=== PATIENT | male | born 1935 | race Caucasian/White ===

== ENCOUNTER → 2017-04-07 | Outpatient (CLI) | payer OTHER ==
[~2017-04-07] MED LIST: ASPEC81 PO; INDA1TAB3 PO; LISI-461 PO; WARF5TAB7 PO
[2017-04-07 09:33] LABS: BASO % 0.3 %; BASO ABS # 0.02 K/uL (0-0.2); COMPLETE YES; EOS % 2.6 %; HEMATOCRIT 41.9 % (42-52); IG% 0.2 %; LYMPH % 26.6 %; LYMPH ABS # 1.53 K/uL (1.2-3.4); MEAN CORPUSCULAR HEMOGLOBIN 32.7 pg (25-34); MEAN CORPUSCULAR HGB CONC 36.8 g/dl (32-36); MEAN PLATELET VOLUME 9.7 fL (7.4-10.4); MONO % 14.9 %; NEUT % 55.4 %; PLATELET COUNT 189 K/uL (130-400); RED BLOOD COUNT 4.71 M/uL (4.7-6.1); WHITE BLOOD COUNT 5.76 K/uL (4.8-10.8)
[2017-04-07 09:55] LABS: ESTIMATED AVERAGE GLUCOSE 103 mg/dl; HA1C FLAG Normal (Normal)
[2017-04-07 09:57] LABS: BLOOD UREA NITROGEN 14 mg/dl (7-18); BUN/CREATININE RATIO 15.1 (10-20); CALCIUM 8.9 mg/dl (8.5-10.1); CARBON DIOXIDE 30 mmol/L (21-32); CHLORIDE 101 mmol/L (98-107); CREATININE 0.96 mg/dl (0.60-1.40); GLUCOSE 81 mg/dl (70-99); POTASSIUM 4.2 mmol/L (3.5-5.1); SODIUM 135 mmol/L (136-145)
[2017-04-07 10:10] LABS: CHOLESTEROL 165 mg/dl (0-200); CHOLESTEROL/HDL RATIO 2.3; HDL CHOLESTEROL 71 mg/dl; LDL CHOLESTEROL CALCULATED 83 mg/dl; TRIGLYCERIDES 54 mg/dl (0-150); VERY LOW DENSITY LIPOPROT CALC 11 mg/dl
--- NOTE | 2017-04-15 07:59 | CODING QUERY MEDICAL NECESSITY ---
CQSUPPORTING DIAGNOSIS NEEDED A supporting diagnosis is required for the test/procedure performed on this patient in order for us to be reimbursed by the patient's insurance. Please provide a supporting diagnosis for the following test/procedure listed below next to the test name along with your signature. *If there is no additional diagnosis for this patient that would support the following test/procedure please document that below next to the test/procedure. Test(s)/Procedure(s) that require a supporting diagnosis: DOS 04/07/17 GLYCATED HEMOGLOBIN TEST TEST ORDERED BY ZOLTAN GUILLEN Provider Signature: Date: Thank you Kimberlee Reinoso Health Information Management Once completed, please kindly fax back to [phone] For questions please call [phone]
== END | disposition home or self-care (01) ==
LOC: C.LAB1850 07:34
PROVIDERS: ATTEND Physician Assistant
DX: I48.91 Unspecified atrial fibrillation (principal); E74.39 Other disorders of intestinal carbohydrate absorption

== ENCOUNTER → 2017-08-09 | Outpatient (CLI) | payer OTHER | END | disposition home or self-care (01) | LOC: C.LABSPEC 12:58 | PROVIDERS: ATTEND Physician Assistant | DX: R10.13 Epigastric pain (principal) ==

== ENCOUNTER → 2018-01-05 | Outpatient (CLI) | payer OTHER ==
[2018-01-05 09:31] LABS: BASO % 0.6 %; BASO ABS # 0.03 K/uL (0-0.2); EOS % 2.5 %; EOS ABS # 0.13 K/uL (0-0.5); HEMATOCRIT 43.3 % (42-52); HEMOGLOBIN 15.6 g/dL (14.0-18.0); IG# 0.01 K/uL (0.00-0.02); LYMPH % 30.2 %; LYMPH ABS # 1.58 K/uL (1.2-3.4); MEAN CORPUSCULAR HEMOGLOBIN 31.7 pg (25-34); MEAN PLATELET VOLUME 9.4 fL (7.4-10.4); MONO % 9.2 %; MONO ABS # 0.48 K/uL (0.11-0.59); NEUT % 57.3 %; PLATELET COUNT 179 K/uL (130-400); RED CELL DISTRIBUTION WIDTH CV 14.1 % (11.5-14.5); RED CELL DISTRIBUTION WIDTH SD 45.3 fL (36.4-46.3); WHITE BLOOD COUNT 5.23 K/uL (4.8-10.8)
[2018-01-05 09:48] LABS: HEMOGLOBIN A1C 5.2 % (4.5-5.6)
[2018-01-05 10:10] LABS: BLOOD UREA NITROGEN 16 mg/dl (7-18); CARBON DIOXIDE 28 mmol/L (21-32); CHOLESTEROL 165 mg/dl (0-200); CREATININE 0.98 mg/dl (0.60-1.40); GLUCOSE 79 mg/dl (70-99); POTASSIUM 3.6 mmol/L (3.5-5.1); SODIUM 133 mmol/L (136-145)
[2018-01-05 10:21] LABS: LDL CHOLESTEROL CALCULATED 79 mg/dl
== END | disposition home or self-care (01) ==
LOC: C.LAB1850 07:25
PROVIDERS: ATTEND Internal Medicine
DX: I10 Essential (primary) hypertension (principal)

== ENCOUNTER 2024-10-30 15:07 | Inpatient (IN) ==
--- NOTE | 2024-10-30 16:16 | XRay Report ---
INDICATION: Cough. TECHNIQUE: Frontal radiograph of the chest. COMPARISON: 01/10/2023 and 01/02/2023. FINDINGS: Cardiomegaly. Mild pulmonary vascular congestion. Moderate volume left greater than right pleural effusions with underlying atelectasis/airspace disease, worsened from prior. No pneumothorax. No acute fracture. IMPRESSION: Mild pulmonary vascular congestion. Moderate volume left greater than right pleural effusions with underlying atelectasis/airspace disease, worsened from prior. Electronically signed by Brent Nathan 10-30-2024 4:16 PM
[2024-10-30 16:47] LABS: Basophils # (auto) 0.04 K/uL (0.00-0.20); Basophils % (auto) 0.8 %; Eosinophils # (auto) 0.05 K/uL (0.00-0.50); Hematocrit (blood only) 40.6 % (42.0-52.0); Hemoglobin 13.9 g/dl (14.0-18.0); Immature Granulocytes # (auto) 0.02 K/uL (0.01-0.20); Immature Granulocytes % (auto) 0.4 %; Lymphocytes # (auto) 0.47 K/uL (1.20-3.40); Lymphocytes % (auto) 9.7 %; Mean Corpuscular Hemoglobin 31.6 pg (25.0-34.0); Mean Corpuscular Hgb Conc 34.2 g/dL (32.0-36.0); Mean Corpuscular Volume 92.3 fL (80.0-100.0); Mean Platelet Volume 9.8 fL (9.4-12.4); Monocytes # (auto) 0.67 K/uL (0.11-0.59); Monocytes % (auto) 13.8 %; Neutrophils # (auto) 3.59 K/uL (1.40-6.50); Neutrophils % (auto) 74.3 %; Platelet Count 160 K/uL (130-400); RDW Coefficient of Variation 15.7 % (11.5-14.5); White Blood Count 4.84 K/ul (4.8-10.8)
[2024-10-30 17:06] LABS: BUN Creatinine Ratio 20.5 (10-20); Bilirubin,Total 1.9 mg/dl (0.2-1.0); Calcium 9.4 mg/dl (8.6-10.3); Creatinine Clr Calc Pharmacy 33.8 ml/min; Globulin 4.2 gm/dl (2.5-4.0); Potassium 4.5 mmol/L (3.5-5.1); Total Protein 8.2 gm/dl (6.0-8.3)
[2024-10-30 17:19] LABS: Influenza A virus by PCR Negative (Neg); Influenza B virus by PCR Negative (Neg); RSV by PCR Negative (Neg); SARS CoV2 RNA(COVID-19) Ceph NEGATIVE (Negative)
--- NOTE | 2024-10-30 17:23 | Emergency Department Note ---
Impression & Plan Acute CHF (congestive heart failure), Bilateral leg edema, Acute dyspnea, Pleural effusion on left, Acute kidney injury superimposed on chronic kidney disease, Elevated brain natriuretic peptide (BNP) level, Non-ST elevation LA (NSTEMI) ED Provider Note HISTORY OF PRESENT ILLNESS: Patient is an 89-year-old male presenting with shortness of breath and lower extremity edema. helps provide some supplemental history. States that for the last 3 weeks the patient has been having progressively worsening swelling of his bilateral lower extremities and significant shortness of breath. They have been doing all of the preop work for his right inguinal hernia repair which is scheduled for 10/31/2019 5 in the morning. Patient is on Coumadin for history of stroke. He states that he takes 60 mg of furosemide in the morning and then an additional 40 mg in the afternoon. He states he has been making good amounts of urine with this, but it swelling is gotten worse. He is not taken any extra doses other than what is prescribed. He denies any chest pain with the shortness of breath. Reports he has not been able to cycle on his stationary bike for the last 3 weeks secondary to being so short of breath and secondary to the swelling of his legs. Reports his leg swelling initially was just around his ankles, but has progressed up his leg and is now in his bilateral groin. Reports that his legs feel very heavy and it is hard to get around like he normally would. ROS: as above PHYSICAL EXAM: Constitutional: Patient appears in no acute distress. HENT: Head: Normocephalic and atraumatic. Eyes: EOMI, PERRL Mouth/Throat: Mucous membranes moist. Neck: Trachea midline. Neck supple. Cardiovascular: Irregular rhythm. No murmurs, rubs or gallops. Intact distal pulses. Pulmonary/Chest: No respiratory distress. Breath sounds clear and equal bilaterally. No wheezes or rales. Decreased breath sounds in left lung base. Abdominal: Abdomen soft, no tenderness, rebound or guarding. Palpable right inguinal hernia which is soft and nontender to palpation. Musculoskeletal: No tenderness or deformity noted. +3 pitting edema of bilateral lower extremities extending into groins. Skin: Warm and dry. No rash, erythema, pallor or cyanosis Psychiatric: Appropriate mood and affect for situation. Neurological: Alert and keenly responsive. CN II-XII grossly intact, moving all extremities equally and fully. MDM: - Vitals signs showed tachycardia - History obtained via patient. History as above. - Chronic conditions affecting care: HTN; Afib; CHF - Differential diagnoses include, but are not limited to: Congestive heart failure; acute coronary syndrome; COPD/asthma exacerbation; pulmonary edema; pulmonary embolism; pneumonia; pneumothorax; viral syndrome - Order placed for continuous cardiac monitoring. At this time, monitor showed rate of 102 bpm with irregular rhythm, per my interpretation. - External medical records reviewed. Echocardiogram dated 03/01/2020 was reviewed. Patient has an EF of 55 to 60%. - EKG interpreted by myself showed atrial fibrillation. Rate 80 bpm. QT 346. No acute ischemic changes. - Laboratory workup interpreted by myself showed normal WBC; stable electrolytes; SIDNEY on CKD (Cr 1.56); elevated total bilirubin (1.9) with normal AST/ALT; elevated BNP (626); elevated troponin (70.4) - CXR shows left pleural effusion, per my interpretation. - Patient given 60 mg IV lasix in ER. - Discussed patient's case with the general surgeon patient is to have surgery with tomorrow, Dr. Song. He plans to come evaluate the patient, but reports that the patient would likely not be suitable for surgery tomorrow given his presentation. - Given patient's significant fluid overload status in the setting of failed outpatient Lasix, will admit to hospitalist service for further diuresis and further evaluation including an echocardiogram. - Discussion was had with disease case manager about patient's case and need for admission - Hospitalist consulted for admission - Patient admitted to [facility] hospitalist service for further evaluation and management. ASSESSMENT AND PLAN: Diagnosis: acute CHF exacerbation; bilateral leg edema; left pleural effusion; acute dyspnea; SIDNEY on CKD; elevated BNP; NSTEMI Plan: admit Past Med/Surg History Problem List (Updated 10/31/24 @ 01:25 by April Alvarado MD) Non-ST elevation LA (NSTEMI) (Acute) Elevated brain natriuretic peptide (BNP) level (Acute) Acute kidney injury superimposed on chronic kidney disease (Acute) Pleural effusion on left (Acute) Acute dyspnea (Acute) Bilateral leg edema (Acute) Acute CHF (congestive heart failure) (Acute) Acute on chronic diastolic CHF (congestive heart failure) Right inguinal hernia Encounter for pre-operative examination Incarcerated right inguinal hernia Foreskin swelling Lymphopenia Bilateral lower extremity edema Pleural effusion, right Severe tricuspid regurgitation Anemia Chronic venous insufficiency of lower extremity Osteoarthritis of basilar joint of thumb Cervical radiculopathy (Chronic) Polyneuropathy (Chronic) Atrial fibrillation (Chronic) Hypertension (Chronic) Osteoarthritis (Chronic) Medical History Moderate mitral regurgitation Gait disturbance Cane Osteoarthritis Severe tricuspid regurgitation Polyneuropathy Hypertension Hx of pleural effusion 12/2023 Bilateral leg edema Chronic venous insufficiency of lower extremity Per records Hearing loss Right Hearing Aid Atrial fibrillation Anemia Incarcerated right inguinal hernia Pulmonary hypertension Sensorineural hearing loss (SNHL) of right ear with restricted hearing of left ear Sensorineural hearing loss (SNHL) Asymmetrical left sensorineural hearing loss R/t stroke per patient/ Cerebrovascular accident, embolic (2007) Left Hearing Loss - no other residuals as per patients /patient 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 Basal cell carcinoma Actinic keratosis Chronic gastroesophageal reflux disease Controlled Surgical History PONV (postoperative nausea and vomiting) Hx of colonoscopy History of arthroscopy of left knee H/O basal cell carcinoma excision S/P thoracentesis (2021) H/O carpal tunnel repair bilateral Family History Other No family history of adverse response to anesthesia No family history of bleeding disorder Denies family history of Ovarian cancer Prostate cancer Myocardial infarction Breast cancer Colorectal cancer Social History Smoking Status: Never smoker Second Hand Exposure: No; Do You Dip or Chew Tobacco: No; Hx Alcohol Use: No Hx Substance Use: No Preferred Language: Georgian Communication Ability: Effective Visual Impairment: No Limitations Hearing Ability: Normal Blending Operator Required: No Beliefs That Will Affect Care: None marital status: Current Living Situation: Spouse current occupational status: retired Other Information That Helps Us Care for You: No Feels Safe at Home: Yes Safety Concerns: Feels Safe At This Time caffeine: Yes Dental Care, Regularly: Yes Seatbelt Use: always Sunscreen Use: Yes Assistive Devices: Cane, Hearing Aid - Right and Walker Allergies Allergies Allergy/AdvReac Type Severity Reaction Status Date / Time suture glue Allergy Intermediate Rash Uncoded 10/30/24 17:57 Home Meds Home Medications Medication Instructions Recorded Confirmed cholecalciferol (vitamin D3) 25 25 mcg PO DAILY 01/11/24 10/30/24 mcg (1,000 unit) capsule eplerenone 25 mg tablet (Inspra) 25 mg PO BID 10/19/24 10/30/24 furosemide 40 mg tablet (Lasix) 40 mg PO UD 10/19/24 10/30/24 metoprolol succinate 25 mg 25 mg PO DAILY 10/19/24 10/30/24 tablet,extended release 24 hr Previous Rx's Medication Instructions Recorded warfarin 5 mg tablet See Rx Instructions PO UD #65 tabs 06/30/24 Results & Data (ED) Vital Signs Vital Signs - 24 hr 10/30/24 15:26 10/30/24 16:48 10/30/24 17:00 Temperature 36.5 C Temperature Source Temporal Artery Scan Pulse Rate 90 94 H 74 Pulse Rate from SpO2 Sensor 75 Respiratory Rate 18 24 Respiratory Effort / Characteristics Non-Labored Spontaneous Respiratory Depth Normal Blood Pressure 137/87 104/80 Blood Pressure Mean 103 88 Blood Pressure Position Sitting Pulse Oximetry 97 97 Oxygen Delivery Method Room Air Sepsis Recent Fever Within 48 Hours No Sepsis New/Unexplained Change in Mental Status No Sepsis Action Taken by Nursing No Action Required 10/30/24 17:30 10/30/24 18:00 10/30/24 18:00 Temperature Temperature Source Pulse Rate 104 H 108 H Pulse Rate from SpO2 Sensor 98 H Respiratory Rate 22 23 Respiratory Effort / Characteristics Respiratory Depth Blood Pressure 128/97 141/99 H Blood Pressure Mean 107 113 Blood Pressure Position Pulse Oximetry 98 96 97 Oxygen Delivery Method Room Air Sepsis Recent Fever Within 48 Hours Sepsis New/Unexplained Change in Mental Status Sepsis Action Taken by Nursing 10/30/24 18:00 Temperature Temperature Source Pulse Rate 95 H Pulse Rate from SpO2 Sensor Respiratory Rate Respiratory Effort / Characteristics Respiratory Depth Blood Pressure Blood Pressure Mean Blood Pressure Position Pulse Oximetry 97 Oxygen Delivery Method Room Air Sepsis Recent Fever Within 48 Hours Sepsis New/Unexplained Change in Mental Status Sepsis Action Taken by Nursing Laboratory Data 10/30/24 16:20 10/30/24 16:20 Lab Results 10/30/24 Range/Units 16:20 WBC 4.84 (4.8-10.8) K/ul RBC 4.40 L (4.70-6.10) M/uL Hgb 13.9 L (14.0-18.0) g/dl Hct 40.6 L (42.0-52.0) % MCV 92.3 (80.0-100.0) fL MCH 31.6 (25.0-34.0) pg MCHC 34.2 (32.0-36.0) g/dL RDW Std Deviation 53.0 H (36.4-46.3) fL RDW Coeff of Vasquez 15.7 H (11.5-14.5) % Plt Count 160 (130-400) K/uL MPV 9.8 (9.4-12.4) fL Immature Gran % (Auto) 0.4 % Neut % (Auto) 74.3 % Lymph % (Auto) 9.7 % [place] % (Auto) 13.8 % Eos % (Auto) 1.0 % Baso % (Auto) 0.8 % Neut # (Auto) 3.59 (1.40-6.50) K/uL Lymph # (Auto) 0.47 L (1.20-3.40) K/uL [place] # (Auto) 0.67 H (0.11-0.59) K/uL Eos # (Auto) 0.05 (0.00-0.50) K/uL Baso # (Auto) 0.04 (0.00-0.20) K/uL Immature Gran # (Auto) 0.02 (0.01-0.20) K/uL PT 17.5 H (9.0-12.0) Seconds INR 1.7 H (0.9-1.1) APTT 33 H (21-31) Seconds PTT Ratio 1.2 Sodium 137 (136-145) mmol/L Potassium 4.5 (3.5-5.1) mmol/L Chloride 99 (98-107) mmol/L Carbon Dioxide 31 (21-32) mmol/L Anion Gap 7 (3-11) BUN 32 H (6-23) mg/dl Creatinine 1.56 H (0.6-1.4) mg/dl Est Cr Clr Drug Dosing 33.8 ml/min eGFR 42.46 BUN/Creatinine Ratio 20.5 H (10-20) Glucose 87 (70-99(Fasting)) mg/dl Calcium 9.4 (8.6-10.3) mg/dl Total Bilirubin 1.9 H (0.2-1.0) mg/dl AST 32 (13-39) U/L ALT 19 (7-52) U/L Alkaline Phosphatase 124 H (34-104) U/L Troponin I High Sens 70.4 H* (0-20) pg/ml B-Natriuretic Peptide 626 H (0-100) pg/ml Total Protein 8.2 (6.0-8.3) gm/dl Albumin 4.0 (3.4-5.0) gm/dl Globulin 4.2 H (2.5-4.0) gm/dl Albumin/Globulin Ratio 1.0 (0.9-2) SARS-CoV-2 (PCR) NEGATIVE (Negative) Influenza Type A (PCR) Negative (Neg) Influenza Type B (PCR) Negative (Neg) RSV (RT-PCR) Negative (Neg) Administered Medications Miscellaneous (Eplerenone: Order Awaiting Action) 1 each N/A QS [facility] Stop: 11/30/24 00:00 Last Admin: 10/30/24 23:35 Dose: Not Given Documented By: SYD Warfarin Sodium (Warfarin Sod 5 Mg Tab) 5 mg PO [id number]@1600 [facility] Stop: 11/29/24 20:59 Last Admin: 10/30/24 23:35 Dose: 5 mg Documented By: SYD Discontinued Medications Furosemide (Furosemide 40 Mg/4 Ml Vial) 60 mg IV ONCE ONE Stop: 10/30/24 17:19 Last Admin: 10/30/24 17:30 Dose: 60 mg Documented By: YULIANA Furosemide (Furosemide Inj 20 Mg/2 Ml Vial) 20 mg IV ONE STA Stop: 10/30/24 20:25 Last Admin: 10/30/24 21:30 Dose: 20 mg Documented By: YULIANA Imaging Data Radiologist's Impression: Chest X-Ray 10/30/24 15:29 INDICATION: Cough. TECHNIQUE: Frontal radiograph of the chest. COMPARISON: 01/10/2023 and 01/02/2023. FINDINGS: Cardiomegaly. Mild pulmonary vascular congestion. Moderate volume left greater than right pleural effusions with underlying atelectasis/airspace disease, worsened from prior. No pneumothorax. No acute fracture. IMPRESSION: Mild pulmonary vascular congestion. Moderate volume left greater than right pleural effusions with underlying atelectasis/airspace disease, worsened from prior. Electronically signed by Brent Nathan 10-30-2024 4:16 PM Discharge Plan Visit Data Chief Complaint: Shortness of Breath/Dyspnea Stated Complaint: SOB, EDEMA IN LEGS, SURG TOMORROW ED Provider: April Alvarado Discharge Problem: Acute CHF (congestive heart failure), Bilateral leg edema, Acute dyspnea, Pleural effusion on left, Acute kidney injury superimposed on chronic kidney disease, Elevated brain natriuretic peptide (BNP) level, Non-ST elevation LA (NSTEMI) Patient Disposition: Admitted As Inpatient Discharge Instructions Interventions: ED Discharge Assessment Last Done: 10/30/24 20:14
[2024-10-30 17:24] LABS: Troponin I High Sensitivity 70.4 pg/ml (0-20)
--- NOTE | 2024-10-30 17:24 | History & Physical Report ---
Date of Service October 30, 2024 Assessment & Plan (1) Acute on chronic diastolic CHF (congestive heart failure): (2) Bilateral lower extremity edema: (3) Atrial fibrillation: (4) Right inguinal hernia: Plan Alex is a pleasant 89-year-old male with PMH of HTN, atrial fibrillation, severe tricuspid regurgitation, and polyneuropathy. He presented on 10/30 for SOB/dyspnea. This has been an ongoing issue since July 2024 with an acute worsening over the past couple days. Additionally, bilateral lower extremity swelling x 2-3 weeks. Patient denies SOB at rest, but endorses FLETCHER. His at bedside reports that she notices conversational dyspnea whenever he is up and moving around, and he is taking longer and longer to return to baseline when he rests. #Acute CHF BNP elevated at 626 on arrival (most recently 497 on 01/10/2024) Last echocardiogram on 03/01/2020 revealed LVEF at 55 to 60% and severe tricuspid regurgitation Daily weights Strict I&O monitoring Lasix 80 mg IV BID17 Continue eplerenone, and monitor K 1200 mL fluid restriction #Pleural effusions CXR noted moderate volume left > right pleural effusions with worsening from prior Lasix (as above) #Right inguinal hernia Originally scheduled for a right inguinal hernia repair with Dr. Song on 10/31 Based on current symptoms, will plan to cancel patient's upcoming surgery Patient will likely require several days (if not longer, based on his pleural effusions) to become optimized for surgery Restart warfarin, which was previously on hold #Atrial fibrillation Rate controlled Restart warfarin Trend PT/INR #Elevated troponin Troponin 70.4 on arrival, repeat pending Clinically, patient denies chest pain on admission Suspect demand ischemia in the setting of heart failure/A-fib Continue telemetry monitoring for now Disposition: Admit to [facility] telemetry DNR/DNI Heart healthy, low-sodium diet VTE PPx: Warfarin History of Present Illness Chief Complaint: FLETCHER, bilateral LE edema Primary Care Provider: Kellee Freeman MD Alex is a pleasant 89-year-old male with PMH of HTN, atrial fibrillation, severe tricuspid regurgitation, and polyneuropathy. He presented on 10/30 for SOB/dyspnea. This has been an ongoing issue since July 2024 with an acute worsening over the past couple days. Additionally, bilateral lower extremity swelling x 2-3 weeks. Patient denies SOB at rest, but endorses FLETCHER. His at bedside reports that she notices conversational dyspnea whenever he is up and moving around, and he is taking longer and longer to return to baseline when he rests. Patient reports that he sleeps elevated at night; unable to assess orthopnea. He does ride a stationary bike 3 times per week, which never used to bother him, but it is gotten worse lately. No recent change in diet. He reports he watches his salt intake. He has reported increased weight lately. He believes his dry weight is around 160 - 163lb, but reports a weight increase to 169lb over the past few days. Patient reports good compliance with taking his Lasix 1.5 tablets in the morning and 1.0 tablets in the afternoon. He took his regular morning medicine today. Normally he takes warfarin at night, but he stopped taking this as he has an upcoming right inguinal hernia operation scheduled for tomorrow on 10/31. Patient stopped taking warfarin on 10/26. He reports that he does not have pain at present with his hernia, but some days he will have moderate pain, and others he will not have any pain at all. He ambulates with a cane as needed. He denies smoking, tobacco use, recent alcohol use. He is not self on oxygen at baseline or CPAP at night. Patient reports he has been to his ([facility]) for 60 years. Patient's vitals are stable at time of admission. ED course: Lasix 60 mg IV ROS: Patient endorses worsening FLETCHER, weight gain, lower extremity edema, and occasional lightheadedness. Patient denies fever, chills, night-sweats, dizziness, chest pain, chest palpitations, SOB at rest, pleuritic CP, cough, abdominal pain, N/V/D, or changes in urinary/bowel habits. Allergies Allergy/AdvReac Type Severity Reaction Status Date / Time suture glue Allergy Intermediate Rash Uncoded 10/30/24 17:57 Home Medications Medication Instructions Recorded Confirmed Type cholecalciferol (vitamin D3) 25 25 mcg PO DAILY 01/11/24 10/30/24 History mcg (1,000 unit) capsule warfarin 5 mg tablet See Rx Instructions PO UD #65 tabs 06/30/24 10/30/24 Rx eplerenone 25 mg tablet (Inspra) 25 mg PO BID 10/19/24 10/30/24 History furosemide 40 mg tablet (Lasix) 40 mg PO UD 10/19/24 10/30/24 History metoprolol succinate 25 mg 25 mg PO DAILY 10/19/24 10/30/24 History tablet,extended release 24 hr Past Med/Surg History Problem List (Updated 10/31/24 @ 01:25 by April Alvarado MD) Non-ST elevation TX (NSTEMI) (Acute) Elevated brain natriuretic peptide (BNP) level (Acute) Acute kidney injury superimposed on chronic kidney disease (Acute) Pleural effusion on left (Acute) Acute dyspnea (Acute) Bilateral leg edema (Acute) Acute CHF (congestive heart failure) (Acute) Acute on chronic diastolic CHF (congestive heart failure) Right inguinal hernia Encounter for pre-operative examination Incarcerated right inguinal hernia Foreskin swelling Lymphopenia Bilateral lower extremity edema Pleural effusion, right Severe tricuspid regurgitation Anemia Chronic venous insufficiency of lower extremity Osteoarthritis of basilar joint of thumb Cervical radiculopathy (Chronic) Polyneuropathy (Chronic) Atrial fibrillation (Chronic) Hypertension (Chronic) Osteoarthritis (Chronic) Medical History Moderate mitral regurgitation Gait disturbance Cane Osteoarthritis Severe tricuspid regurgitation Polyneuropathy Hypertension Hx of pleural effusion 12/2023 Bilateral leg edema Chronic venous insufficiency of lower extremity Per records Hearing loss Right Hearing Aid Atrial fibrillation Anemia Incarcerated right inguinal hernia Pulmonary hypertension Sensorineural hearing loss (SNHL) of right ear with restricted hearing of left ear Sensorineural hearing loss (SNHL) Asymmetrical left sensorineural hearing loss R/t stroke per patient/ Cerebrovascular accident, embolic (2007) Left Hearing Loss - no other residuals as per patients /patient 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 Basal cell carcinoma Actinic keratosis Chronic gastroesophageal reflux disease Controlled Surgical History PONV (postoperative nausea and vomiting) Hx of colonoscopy History of arthroscopy of left knee H/O basal cell carcinoma excision S/P thoracentesis (2021) H/O carpal tunnel repair bilateral Family History Other No family history of adverse response to anesthesia No family history of bleeding disorder Denies family history of Ovarian cancer Prostate cancer Myocardial infarction Breast cancer Colorectal cancer Social History Smoking Status: Never smoker Second Hand Exposure: No; Do You Dip or Chew Tobacco: No; Hx Alcohol Use: No Hx Substance Use: No Preferred Language: Vietnamese Communication Ability: Effective Visual Impairment: No Limitations Hearing Ability: Normal Major Gifts Manager Required: No Beliefs That Will Affect Care: None marital status: Current Living Situation: Spouse current occupational status: retired Other Information That Helps Us Care for You: No Feels Safe at Home: Yes Safety Concerns: Feels Safe At This Time caffeine: Yes Dental Care, Regularly: Yes Seatbelt Use: always Sunscreen Use: Yes Assistive Devices: Cane, Hearing Aid - Right and Walker Review of Systems Review of Systems: See HPI above Physical Exam Physical Exam: General: no acute distress; pleasant affect; at bedside; non-toxic appearing; frail appearing; cooperative; SpO2 97% on RA HEENT: normocephalic, atraumatic; no scleral icterus; PERRLA; vision intact; hard of hearing Neck: supple; no lymphadenopathy; trachea midline Skin: warm, dry without signs of tenting; no cyanosis; no rashes, bruising, lesions, or erythema noted CV: chest wall NTP; irregularly irregular rhythm; S1/S2 normal; no murmurs/rubs/gallops; pulses intact and symmetric at radial, DP, and PT Lungs: no acute respiratory distress; symmetrical chest wall expansion; diminished breath sounds across all lung ritter w/o adventitious sounds; no wheezing ABD: Soft, NTP; BS present; no rebound/guarding; no distention; right inguinal hernia is soft, nontender to palpation MSK: no tics or fasciculations; +3 pitting edema noted in the LEs b/l extending up to the groin, nonerythematous Neuro: A&Ox3; normal mood and affect; fluent speech; no focal deficits; patient reports sensation is intact and symmetric in the lower extremities bilaterally Results & Data Results & Data Vital Signs (Past 12 Hours) Vital Signs Temp Pulse Resp BP Pulse Ox O2 Del Method 10/30/24 16:48 94 H 10/30/24 15:26 36.5 C 90 18 137/87 97 Room Air Laboratory Results Abnormal lab results 10/30/24 Range/Units 16:20 RBC 4.40 L (4.70-6.10) M/uL Hgb 13.9 L (14.0-18.0) g/dl Hct 40.6 L (42.0-52.0) % RDW Std Deviation 53.0 H (36.4-46.3) fL RDW Coeff of Vasquez 15.7 H (11.5-14.5) % Lymph # (Auto) 0.47 L (1.20-3.40) K/uL Schley # (Auto) 0.67 H (0.11-0.59) K/uL BUN 32 H (6-23) mg/dl Creatinine 1.56 H (0.6-1.4) mg/dl BUN/Creatinine Ratio 20.5 H (10-20) Total Bilirubin 1.9 H (0.2-1.0) mg/dl Alkaline Phosphatase 124 H (34-104) U/L Troponin I High Sens 70.4 H* (0-20) pg/ml B-Natriuretic Peptide 626 H (0-100) pg/ml Globulin 4.2 H (2.5-4.0) gm/dl Diagnostic Findings Chest X-Ray 10/30/24 15:29 INDICATION: Cough. TECHNIQUE: Frontal radiograph of the chest. COMPARISON: 01/10/2023 and 01/02/2023. FINDINGS: Cardiomegaly. Mild pulmonary vascular congestion. Moderate volume left greater than right pleural effusions with underlying atelectasis/airspace disease, worsened from prior. No pneumothorax. No acute fracture. IMPRESSION: Mild pulmonary vascular congestion. Moderate volume left greater than right pleural effusions with underlying atelectasis/airspace disease, worsened from prior. Electronically signed by Brent Nathan 10-30-2024 4:16 PM ECG Additional Comments: ECG revealed atrial fibrillation at 80 bpm; QTc 399 Code Status & VTE Plan Code Status DNR/DNI VTE Prophylaxis Plan VTE Prophylaxis will be ordered: Yes Supervising Physician Co-Signing Physician Notes I personally saw and examined the patient. I independently reviewed the labs, EKG, imaging, problem list, medication list, past medical history and family history. I verified all almendarez points and agree with Felix Gr PA-C with the following exceptions and/or additions: 89 year old male presents to the ER with weight gain and worsening shortness of breath O/E HS RRR, systolic murmur RUSB, bibasal absent breath sounds, no crackles or wheezing, Abdo SNT, 2+ bilateral pitting edema A/P Acute on chronic HFpEF - Lasix 80mg IV BID, continue metoprolol succinate, strict I&Os, daily weights, will cancel fluid restriction, since he has not yet established PG Care Time/CCT Total # of Minutes Spent Total Time Spent with Patient: Total time spent is greater than 50% in coordination of care (as documented) at patient's floor/unit and/or counseling patient: Coding [place] [address] INT INP/OBS CARE 3/75MIN Patient Type Established Medical Decision Making High Complexity Diagnoses Acute on chronic diastolic CHF (congestive heart failure) I50.33 Bilateral lower extremity edema R60.0 Paroxysmal atrial fibrillation I48.0 Atrial fibrillation type: paroxysmal Right inguinal hernia K40.90 (3) Atrial fibrillation Atrial fibrillation type: paroxysmal Qualified Code(s): I48.0 - Paroxysmal atrial fibrillation
[2024-10-30] MEDS: FUROSEMIDE 40 MG/4 ML VIAL IV ONE (17:30)
[2024-10-30 17:32] LABS: INR 1.7 (0.9-1.1); Partial Thromboplastin Ratio 1.2; Partial Thromboplastin Time 33 Seconds (21-31); Prothrombin Time 17.5 Seconds (9.0-12.0)
--- NOTE | 2024-10-30 17:52 | Surgery Consultation ---
Date of Consultation October 30, 2024 Assessment & Plan (1) Right inguinal hernia: His hernia is actually even more reduced now than when I saw him in the office He has no tenderness palpation or signs of incarceration I think it is likely best to postpone his surgery tomorrow until his CHF exacerbation has improved If he is optimized next few days and is still inpatient, can consider elective hernia repair as an inpatient Will touch base with the medical team tomorrow about this possibility as he has been holding his Coumadin Will follow History of Present Illness Reason for Consultation: Right Inguinal Hernia History of Present Illness This is a 89-year-old male who came to the ER today with progressive lower extremity edema and dyspnea. He was scheduled for an elective open right inguinal hernia repair with me tomorrow. He had been holding his Coumadin and was seen by the [facility] referred to his PCP who then referred him here for evaluation. He states that he has had progressive worsening dyspnea and swelling of the legs. He denies any groin pain at this time. He denies any nausea or vomiting. He denies any constipation or diarrhea. He has been eating without issue. He is being admitted for CHF exacerbation. Allergies Allergy/AdvReac Type Severity Reaction Status Date / Time suture glue Allergy Intermediate Rash Uncoded 10/19/24 15:02 Home Medications Medication Instructions Recorded Confirmed Type cholecalciferol (vitamin D3) 25 25 mcg PO DAILY 01/11/24 10/30/24 History mcg (1,000 unit) capsule warfarin 5 mg tablet See Rx Instructions PO UD #65 tabs 06/30/24 10/30/24 Rx eplerenone 25 mg tablet (Inspra) 25 mg PO BID 10/19/24 10/30/24 History furosemide 40 mg tablet (Lasix) 40 mg PO .COMPLEX 10/19/24 10/30/24 History metoprolol succinate 25 mg 25 mg PO BID 10/19/24 10/30/24 History tablet,extended release 24 hr Patient History Medical History Moderate mitral regurgitation Gait disturbance Cane Osteoarthritis Severe tricuspid regurgitation Polyneuropathy Hypertension Hx of pleural effusion 12/2023 Bilateral leg edema Chronic venous insufficiency of lower extremity Per records Hearing loss Right Hearing Aid Atrial fibrillation Anemia Incarcerated right inguinal hernia Pulmonary hypertension Sensorineural hearing loss (SNHL) of right ear with restricted hearing of left ear Sensorineural hearing loss (SNHL) Asymmetrical left sensorineural hearing loss R/t stroke per patient/ Cerebrovascular accident, embolic (2007) Left Hearing Loss - no other residuals as per patients /patient 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 Basal cell carcinoma Actinic keratosis Chronic gastroesophageal reflux disease Controlled Surgical History PONV (postoperative nausea and vomiting) Hx of colonoscopy History of arthroscopy of left knee H/O basal cell carcinoma excision S/P thoracentesis (2021) H/O carpal tunnel repair bilateral Family History Other No family history of adverse response to anesthesia No family history of bleeding disorder Denies family history of Ovarian cancer Prostate cancer Myocardial infarction Breast cancer Colorectal cancer Social History Smoking Status: Never smoker Second Hand Exposure: No; Do You Dip or Chew Tobacco: No; Hx Alcohol Use: No Hx Substance Use: No Preferred Language: Swedish Communication Ability: Effective Visual Impairment: No Limitations Hearing Ability: Normal Gift Packer Required: No Beliefs That Will Affect Care: None marital status: Current Living Situation: Spouse current occupational status: retired Feels Safe at Home: Yes caffeine: Yes Dental Care, Regularly: Yes Seatbelt Use: always Sunscreen Use: Yes Assistive Devices: Cane, Glasses, Hearing Aid - Right and Other Review of Systems Constitutional: no fever and no chills Eyes: no blind spots and no corrective lenses Ear, Nose, Mouth, Throat: no ear pain and no ear discharge Respiratory: + dyspnea; no cough Cardiovascular: + dyspnea on exertion; no chest pain Gastrointestinal: no abdominal pain, no nausea, no vomiting, no constipation and no diarrhea/loose stools Genitourinary: no dysuria or no urinary incontinence Musculoskeletal: no back pain and no neck pain Integumentary: no acne and no lesions Neurologic: no gait abnormality and no generalized weakness Psychiatric: no behavioral changes and no depression Hematologic / Lymphatic: no easy bleeding and no easy bruising Physical Exam Constitutional: WD/WN, vitals as above Eyes: PERRL, conjunctivae normal, anicteric sclerae ENMT: external ear and nose normal, oropharynx normal Respiratory: normal respiratory effort; no respiratory distress Cardiovascular: RRR, no murmur, no edema Gastrointestinal (Abdomen): Inspection/Auscultation: abdomen normal to inspection; abdomen not distended Percussion/Palpation: abdomen soft and + hernia (Reducible right inguinal); abdomen nontender and no guarding Musculoskeletal: no cyanosis or clubbing, extremities motor strength 5/5 Skin: no rashes, warm and dry Neurologic: PERRL, EOMI, accommodation nl, no face palsy, no dysarthria Psychiatric: A+Ox3, euthymic affect Results & Data Vital Signs (Past 12 Hours) Vital Signs Temp Pulse Resp BP Pulse Ox O2 Del Method 10/30/24 16:48 94 H 10/30/24 15:26 36.5 C 90 18 137/87 97 Room Air PG Care Time/CCT Total # of Minutes Spent Total Time Spent with Patient: Total time spent is greater than 50% in coordination of care (as documented) at patient's floor/unit and/or counseling patient: Coding Level of Care Code 72138 OP VST EST HI 40 MIN Diagnoses Right inguinal hernia K40.90
[2024-10-30 19:41] LABS: Appearance Urine Clear (Clear); Bacteria Urine Automated None Seen (None Seen); Bilirubin Urine Negative (Negative); Blood Urine Trace (Negative); Cast Urine Automated 0-2 /lpf (0-2); Color Urine Yellow; Epithelial Cell Urine Auto 0-2 /hpf (0-2); Glucose Urine UA Negative (Negative); Ketones Urine Negative (Negative); Leukocyte Esterase Urine Negative (Negative); Nitrite Urine Negative (Negative); Protein Urine Negative (Negative); Urobilinogen Urine Negative (Negative); WBC Urine Automated 0-5 /hpf (0-5); pH Urine 7.5 (4.5-7.5)
[2024-10-30] MEDS ORDERED: ACETAMINOPHEN 325 MG TAB PO PRN (20:14)
[2024-10-30] MEDS ORDERED: ONDANSETRON INJ 2 MG/ML 2 ML VIAL IV PRN (20:14)
[2024-10-30] MEDS: FUROSEMIDE INJ 20 MG/2 ML VIAL IV STA (21:30)
[2024-10-30] MEDS: EPLERENONE: ORDER AWAITING ACTION SCH (23:35)
[2024-10-30] MEDS: WARFARIN SOD 5 MG TAB PO SCH (23:35)
[2024-10-31 07:25] LABS: Basophils # (auto) 0.02 K/uL (0.00-0.20); Basophils % (auto) 0.5 %; Eosinophils # (auto) 0.06 K/uL (0.00-0.50); Eosinophils % (auto) 1.5 %; Hematocrit (blood only) 38.2 % (42.0-52.0); Hemoglobin 12.9 g/dl (14.0-18.0); Immature Granulocytes # (auto) 0.02 K/uL (0.01-0.20); Immature Granulocytes % (auto) 0.5 %; Lymphocytes % (auto) 12.3 %; Mean Corpuscular Hgb Conc 33.8 g/dL (32.0-36.0); Mean Corpuscular Volume 91.8 fL (80.0-100.0); Mean Platelet Volume 9.5 fL (9.4-12.4); Monocytes % (auto) 14.7 %; Neutrophils # (auto) 2.88 K/uL (1.40-6.50); Neutrophils % (auto) 70.5 %; Platelet Count 145 K/uL (130-400); RDW Coefficient of Variation 15.9 % (11.5-14.5); RDW Standard Deviation 53.3 fL (36.4-46.3); Red Blood Count 4.16 M/uL (4.70-6.10); White Blood Count 4.08 K/ul (4.8-10.8)
[2024-10-31 07:43] LABS: BUN Creatinine Ratio 21.5 (10-20); Calcium 9.1 mg/dl (8.6-10.3); Creatinine Clr Calc Pharmacy 36.6 ml/min; Potassium 3.8 mmol/L (3.5-5.1)
[2024-10-31 07:50] LABS: INR 1.5 (0.9-1.1); Prothrombin Time 16.1 Seconds (9.0-12.0)
[2024-10-31] MEDS: METOPROLOL SUCC 25MG EXT REL TAB PO SCH (08:25)
[2024-10-31] MEDS: FUROSEMIDE 40 MG/4 ML VIAL IV SCH (08:29)
[2024-10-31 08:57] LABS: Troponin I High Sensitivity 80.9 pg/ml (0-20)
[2024-10-31 09:58] LABS: Magnesium 2.2 mg/dl (1.7-2.4)
[2024-10-31] MEDS: CHOLECALCIFEROL 25 MCG (1000 UNITS) TAB PO SCH (10:25)
--- NOTE | 2024-10-31 11:39 | Hospitalist Progress Note ---
Date of Service October 31, 2024 Assessment & Plan (1) Acute on chronic diastolic CHF (congestive heart failure): (2) Bilateral lower extremity edema: (3) Atrial fibrillation: (4) Right inguinal hernia: Plan This patient is and 89-year-old male with PMH of HTN, permanent atrial fi brillation, right heart failure/severe TR, chronic venous insufficiency s/p multiple endovenous ablations, embolic CVA in 2007, and polyneuropathy. He presented on 10/30 for SOB/dyspnea on exertion. This has been an ongoing issue since July 2024 with an acute worsening over the past couple days. Additionally, with increased bilateral lower extremity swelling x 2-3 weeks. #Acute on chronic right-sided CHF/pulmonary hypertension/severe TR/pleural effusions-presented with SOB and FLETCHER, with BNP elevated at 626, left greater than right pleural effusions on CXR. Last echocardiogram on 03/01/2020 revealed LVEF at 55 to 60% and severe tricuspid regurgitation. Diuresing with IV diuretics and creatinine improved to 1.4, weight is down, clinically improved. Appreciate cardiology consultation-echo with EF greater than 70%, small LV cavity with moderate LVH, severe RAYO, moderate-severe TR, severe pulmonary HTN, small pericardial effusion, large left pleural effusion -Cardiology wants to rule out cardiac amyloidosis-SPEP, UPEP, serum free light chains ordered -Continue Daily weights, Strict I&O monitoring, low-sodium diet, fluid restrict ion -Continue Lasix 80 mg IV BID17 for now and plan to convert to torsemide or Bumex on discharge -Plan to add SGLT2i on discharge -Referral to CHF clinic made -Continue eplerenone which needs to be brought in from home -Cardiology to consider cardiac MRI versus bone scintigraphy as an outpatient for workup for amyloid -Follow BMP, magnesium in the a.m. #Right inguinal hernia-originally scheduled for a right inguinal hernia repair with Dr. Song on 10/31-appreciate surgery consultation-hernia is not strangulated and this is not urgent Surgery canceled and will be rescheduled after cardiac issues optimized as an outpatient -Resume Coumadin on follow INR # Permanent atrial fibrillation-rate controlled -Restarted warfarin, INR 1.5 -Trend PT/INR in a.m. -Continue metoprolol succinate #Elevated troponin-troponin 70.4/70/80, no chest pain-suspect demand ischemia in the setting of heart failure/A-fib. Echocardiogram without wall motion abnormalities Continue telemetry monitoring #Elevated LFTs-total bilirubin and alkaline phosphatase mildly elevated-could be hepatic congestion from heart failure -Follow LFTs #History of embolic CVA-no acute issues, no residual deficits -Resumed Coumadin, following INR #Microscopic hematuria-UA here with microscopic blood -Follow with repeat UA as an outpatient DVT prophylaxis-Coumadin Disposition-continued stay on med/tele Admission and Anticipated Discharge Date Admission Date: October 30, 2024 Subjective Patient feeling much better since admission, less short of breath and feels his leg swelling is improving. No chest pains. I discussed his care with cardiology. Telemetry with atrial fibrillation with rates in the 80s to 90s Physical Exam Constitutional: WD/WN, vitals as above Respiratory: normal respiratory effort Auscultation: + diminished lung sounds (Left base); no crackles and no wheezes Cardiovascular: Rate/Rhythm: regular rate and + irregularly irregular Heart Sounds: no murmur Extremities: + edema (2+ pitting edema to the knees bilaterally) Skin: + rash (Chronic venous stasis erythema l egs bilaterally) Psychiatric: A+Ox3, euthymic affect Results & Data Results & Data Vital Signs (Past 12 Hours) Vital Signs Temp Pulse Pulse Resp BP BP Pulse Ox 10/31/24 10:54 36.8 C 108 H 20 147/93 H 96 10/31/24 08:14 69 10/31/24 08:10 36.4 C L 106 H 20 117/58 L 95 10/31/24 04:00 36.2 C L 108 H 18 108/71 96 O2 Del Method 10/31/24 10:54 Room Air 10/31/24 08:14 10/31/24 08:10 Room Air 10/31/24 04:00 Room Air Laboratory Results CBC, BMP, INR reviewed PG Care Time/CCT Total # of Minutes Spent Total Time Spent with Patient: Total time spent is greater than 50% in coordination of care (as documented) at patient's floor/unit and/or counseling patient: Coding Level of Care Code 35500 SUB INP/OBS CARE 3/50MIN Diagnoses Acute on chronic diastolic CHF (congestive heart failure) I50.33 Bilateral lower extremity edema R60.0 Paroxysmal atrial fibrillation I48.0 Atrial fibrillation type: paroxysmal Right inguinal hernia K40.90 (3) Atrial fibrillation Atrial fibrillation type: paroxysmal Qualified Code(s): I48.0 - Paroxysmal atrial fibrillation
--- NOTE | 2024-10-31 12:56 | XCELERA ---
[id number] \\[id number]
[2024-10-31] MEDS: WARFARIN SOD 2.5 MG TAB PO SCH (16:23)
--- NOTE | 2024-10-31 18:31 | Cardiology Consultation ---
Date of Consultation October 31, 2024 Assessment & Plan (1) Acute CHF (congestive heart failure): 2. HFpEF 3. Moderate to severe LVH 4. Moderate to severe TR/severe pulm hypertension 5. Permanent atrial fibrillation 6. Chronic lower extremity edema, chronic venous insufficiency 7. CKD 8. Anemia 9. Inguinal hernia Patient here with progressive dyspnea on exertion, weight gain in the setting of acute heart failure with bilateral pleural effusions. No clear precipitants. No evidence of ACS and AF permanent and relatively rate controlled. Clinically today well-perfused, diuresing well and breathing comfortably on room air. Reviewed repeat echocardiogram. No significant valvular disease. Does have at least moderate LVH with appearance potentially consistent with infiltrative disease question cardiac amyloid. Plan for continued diuresis today and ongoing rate control. No need for additional inpatient cardiac testing. Continue to monitor on telemetry Agree with IV Lasix 80 mg twice daily Resume MRA while admitted Will consider adding SGLT2 at some point Long-term consider transitioning home diuretic regimen to Bumex or torsemide On discharge agree with close heart failure clinic follow-up Check SPEP, UPEP, serum FLC to evaluate for possible cardiac amyloid. Po ssible bone scintigraphy versus cardiac MRI as an outpatient Will continue to follow History of Present Illness Attending Physician: Viviana Christie MD History of Present Illness Mr. Boston is a very pleasant 89-year-old man known to me from prior vascular care admitted with acute heart failure. Seen today at bedside with his . Past medical history significant for permanent atrial fibrillation on anticoagulation with warfarin, history of embolic CVA in 2007, hypertension, prior right pleural effusion and chronic lower extremity edema in the setting of right heart failure/severe TR and chronic venous insufficiency post multiple endovenous ablations. More recently patient has been evaluated for possible inguinal hernia repair with Dr. Song, procedure had been planned for today. Was seen yesterday by anticoagulation clinic and respiratory distress noted leading to him being sent to ED. Patient reports gradually progressive exertional dyspnea over the last 3 weeks. He denies any associated chest pain. No palpitations. No presyncope. Has noted that his lower extremities are more swollen. Has been taking his home Lasix 60 mg in the a.m., 40 mg in the p.m. Denies significant changes in urine output. No changes to his diet. No other changes to medications. Denies any recent viral illness. On admission hemodynamically stable, satting mid 90s on room air. Recorded weight up 10 pounds from prior outpatient visit. Chest x-ray showed new large left pleural effusion with smaller right pleural effusion. EKG showed atrial fibrillation with ventricular rate of [address] changes. HS TropI flat and 70s to 80s. BNP elevated at 620. Viral panel negative. Started on IV Lasix 80 mg twice daily. Thus far out -1700. Allergies Allergy/AdvReac Type Severity Reaction Status Date / Time suture glue Allergy Intermediate Rash Uncoded 10/30/24 17:57 Home Medications Medication Instructions Recorded Confirmed Type cholecalciferol (vitamin D3) 25 25 mcg PO DAILY 01/11/24 10/30/24 History mcg (1,000 unit) capsule warfarin 5 mg tablet See Rx Instructions PO UD #65 tabs 06/30/24 10/30/24 Rx eplerenone 25 mg tablet (Inspra) 25 mg PO BID 10/19/24 10/30/24 History furosemide 40 mg tablet (Lasix) 40 mg PO UD 10/19/24 10/30/24 History metoprolol succinate 25 mg 25 mg PO DAILY 10/19/24 10/30/24 History tablet,extended release 24 hr Patient History Medical History Moderate mitral regurgitation Gait disturbance Cane Osteoarthritis Severe tricuspid regurgitation Polyneuropathy Hypertension Hx of pleural effusion 12/2023 Bilateral leg edema Chronic venous insufficiency of lower extremity Per records Hearing loss Right Hearing Aid Atrial fibrillation Anemia Incarcerated right inguinal hernia Pulmonary hypertension Sensorineural hearing loss (SNHL) of right ear with restricted hearing of left ear Sensorineural hearing loss (SNHL) Asymmetrical left sensorineural hearing loss R/t stroke per patient/ Cerebrovascular accident, embolic (2007) Left Hearing Loss - no other residuals as per patients /patient 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 Basal cell carcinoma Actinic keratosis Chronic gastroesophageal reflux disease Controlled Surgical History PONV (postoperative nausea and vomiting) Hx of colonoscopy History of arthroscopy of left knee H/O basal cell carcinoma excision S/P thoracentesis (2021) H/O carpal tunnel repair bilateral Family History Other No family history of adverse response to anesthesia No family history of bleeding disorder Denies family history of Ovarian cancer Prostate cancer Myocardial infarction Breast cancer Colorectal cancer Social History Smoking Status: Never smoker Second Hand Exposure: No; Do You Dip or Chew Tobacco: No; Hx Alcohol Use: No Hx Substance Use: No Preferred Language: [place]ian Communication Ability: Effective Visual Impairment: No Limitations Hearing Ability: Normal Housing Specialist Required: No Beliefs That Will Affect Care: None marital status: Current Living Situation: Spouse current occupational status: retired Other Information That Helps Us Care for You: No Feels Safe at Home: Yes Safety Concerns: Feels Safe At This Time caffeine: Yes Dental Care, Regularly: Yes Seatbelt Use: always Sunscreen Use: Yes Assistive Devices: Cane Review of Systems Review of Systems: All systems reviewed & are unremarkable except as noted in HPI & below Physical Exam Physical Exam: General: Comfortable, lying flat HEENT: Sclerae anicteric Lungs: Decreased breath sounds at the bases bilaterally left greater than right Cardiac: Irregular irregular, 2 out of 6 holosystolic murmur at left lower sternal border Vascular: 2+ radial Abdomen: Soft, nontender Extremities: Well perfused, chronic venous stasis changes with hyperpigmentation extending to mid duncan, 1+ woody edema Psych: Alert orient x3, normal affect and mood Results & Data Vital Signs (Past 12 Hours) Vital Signs Temp Pulse Pulse Resp BP BP Pulse Ox 10/31/24 15:54 97.3 F L 112 H 20 132/75 95 10/31/24 15:30 97 H 10/31/24 10:54 98.2 F 108 H 20 147/93 H 96 10/31/24 08:14 69 10/31/24 08:10 97.5 F L 106 H 20 117/58 L 95 O2 Del Method 10/31/24 15:54 Room Air 10/31/24 15:30 10/31/24 10:54 Room Air 10/31/24 08:14 10/31/24 08:10 Room Air PG Care Time/CCT Total # of Minutes Spent Total Time Spent with Patient: Total time spent is greater than 50% in coordination of care (as documented) at patient's floor/unit and/or counseling patient: Coding Level of Care Code 76792 INT INP/OBS CARE MIN Diagnoses Acute CHF (congestive heart failure) I50.9
--- NOTE | 2024-10-31 21:46 | Electrocardiogram Report ---
Test Reason : Blood Pressure : */* mmHG Vent. Rate : 80 BPM Atrial Rate : * BPM P-R Int : * ms QRS Dur : 80 ms QT Int : 346 ms P-R-T Axes : * -34 32 degrees QTcB Int : 399 ms Poor data quality, interpretation may be adversely affected Atrial fibrillation Left axis deviation Low voltage QRS Cannot rule out Anterior infarct , age undetermined Abnormal ECG When compared with ECG of 17-Oct-2024 12:13, QRS axis Shifted left Minimal criteria for Anterior infarct are now Present Confirmed by Gerardo Montoya ([id number]) on 10/31/2024 9:46:49 PM Referred By: REFERRED SELF Confirmed By: Gerardo Montyoa
[2024-11-01] MEDS: SPIRONOLACTONE 12.5 MG TAB PO SCH (08:20)
[2024-11-01 10:09] LABS: BUN Creatinine Ratio 20.9 (10-20); Calcium 9.1 mg/dl (8.6-10.3); Creatinine Clr Calc Pharmacy 34.5 ml/min; Magnesium 2.1 mg/dl (1.7-2.4); Potassium 3.5 mmol/L (3.5-5.1)
[2024-11-01 10:33] LABS: INR 1.4 (0.9-1.1); Prothrombin Time 15.1 Seconds (9.0-12.0)
[2024-11-01] MEDS: POTASSIUM CHLORIDE CRTAB 20 MEQ TABCR PO STA (11:30)
--- NOTE | 2024-11-01 16:44 | Cardiology Progress Note ---
Date of Service November 01, 2024 Assessment & Plan (1) Acute CHF (congestive heart failure): Plan: 2. HFpEF 3. Moderate to severe LVH 4. Moderate to severe TR/severe pulm hypertension 5. Permanent atrial fibrillation 6. Chronic lower extremity edema, chronic venous insufficiency 7. CKD 8. Anemia 9. Inguinal hernia Breathing improved, minimal dyspnea walking around room. Comfortable lying flat. Pleural effusions and lower extremity edema seems improved on exam today. Renal function stable. From a cardiac standpoint okay with discharge today or tomorrow Transition home Lasix to torsemide 40 mg daily Continue home daily weights, salt restriction Resume home eplerenone on discharge Will add SGLT2 as outpatient Follow-up SPEP/UPEP/serum FLC. Consider bone scintigraphy versus cardiac MRI as an outpatient for cardiac amyloid Will arrange follow-up with CHF clinic next week Admission and Anticipated Discharge Date Admission Date: October 30, 2024 Subjective Feeling well this morning. Denies any chest pain. Breathing improved. States he is ready to go home. Telemetry reviewedrate controlled atrial fibrillation. No events. Review of Systems Review of Systems: All systems reviewed & are unremarkable except as noted in HPI & below Physical Exam Physical Exam: General: Comfortable, lying flat HEENT: Sclerae anicteric Lungs: Decreased breath sounds at left base, improved from yesterday Cardiac: Irregular irregular, 2 out of 6 holosystolic murmur at left lower sternal border Vascular: 2+ radial Abdomen: Soft, nontender Extremities: Well perfused, chronic venous stasis changes with hyperpigmentation extending to mid duncan, trace woody edema Psych: Alert orient x3, normal affect and mood Results & Data Vital Signs (Past 12 Hours) Vital Signs Temp Pulse Pulse Resp BP Pulse Ox O2 Del Method 11/01/24 16:00 98.1 F 101 H 18 115/75 93 Room Air 11/01/24 15:11 87 11/01/24 11:29 97.2 F L 84 17 126/73 96 Room Air 11/01/24 08:06 90 11/01/24 07:50 98.1 F 68 16 116/68 95 Room Air PG Care Time/CCT Total # of Minutes Spent Total Time Spent with Patient: Total time spent is greater than 50% in coordination of care (as documented) at patient's floor/unit and/or counseling patient: Coding Level of Care Code 92541 SUB INP/OBS CARE MIN Diagnoses Acute CHF (congestive heart failure) I50.9
--- NOTE | 2024-11-01 17:07 | Hospitalist Progress Note ---
Date of Service November 01, 2024 Assessment & Plan (1) Acute on chronic diastolic CHF (congestive heart failure): (2) Atrial fibrillation: (3) Right inguinal hernia: Plan This patient is and 89-year-old male with PMH of HTN, permanent atrial fibrillation, right heart failure/severe TR, chronic venous insufficiency s/p multiple endovenous ablations, embolic CVA in 2007, and polyneuropathy. He presented on 10/30 for SOB/dyspnea on exertion. This has been an ongoing issue since July 2024 with an acute worsening over the past couple days. Additionally, with increased bilateral lower extremity swelling x 2-3 weeks. #Acute on chronic right-sided CHF/pulmonary hypertension/severe TR/pleural effusions-presented with SOB and FLETCHER, with BNP elevated at 626, left greater than right pleural effusions on CXR. Last echocardiogram on 03/01/2020 revealed LVEF at 55 to 60% and severe tricuspid regurgitation. Appreciate cardiology consultation-ECHO here with EF greater than 70%, small LV cavity with moderate LVH, severe RAYO, moderate-severe TR, severe pulmonary HTN, small pericardial effusion, large left pleural effusion Diuresed with lasix 80mg IV bid and with 7 kg weigh tloss, I/Os not accurate. Metal Mover stable at 1.5, peripheral edema improved, not SOB with exertion -Cardiology wants to rule out cardiac amyloidosis-SPEP, UPEP, serum free light chains pending -Continue Daily weights, Strict I&O monitoring, low-sodium diet, fluid restriction on discharge -Continue Lasix 80 mg IV BID17 through this evening and convert to torsemide 40mg po qAM on 11/02 -Plan to add SGLT2i after discharge with CHF clinic -Referral to CHF clinic made-f/u within 1 week -Continue eplerenone after discharge (receiving aldactone while in hospital) -Cardiology to consider cardiac MRI versus bone scintigraphy as an outpatient for workup for amyloid -Follow BMP, magnesium in the a.m.-replace with KCl 40 meq po x 1 today -follow CXR in 2 weeks as outpt to ensure pleural effusions resolving #Right inguinal hernia-originally scheduled for a right inguinal hernia repair with Dr. Song on 10/31-appreciate surgery consultation-hernia is not strangulated and this is not urgent Surgery canceled and will be rescheduled after cardiac issues optimized as an outpatient -Resume Coumadin on follow INR # Permanent atrial fibrillation-rate controlled, coumadin was on hold for scheduled hernia operation prior to admission -continue warfarin, INR 1.4 today -Trend PT/INR in a.m. -Continue metoprolol succinate #Elevated troponin-troponin 70.4/70/80, no chest pain-suspect demand ischemia in the setting of heart failure/A-fib. Echocardiogram without wall motion abnormalities Continue telemetry monitoring #Elevated LFTs-total bilirubin and alkaline phosphatase mildly elevated-could be hepatic congestion from heart failure- -Follow LFTs in AM #History of embolic CVA-no acute issues, no residual deficits -Resumed Coumadin, following INR #Microscopic hematuria-UA here with microscopic blood -Follow with repeat UA as an outpatient DVT prophylaxis-Coumadin Disposition-continued stay on med/tele but dc to home tomorrow AM after further IV diuresis. Discussed care with at bedside on 11/01 Admission and Anticipated Discharge Date Admission Date: October 30, 2024 Subjective Pt feeling much better. No SOB, leg swelling continues to improve. His notes his abdomen is a bit bloated. He has a good appetite. I discussed his care with cardiology Tele with Afib, rates 70-100s Physical Exam Constitutional: WD/WN, vitals as above Respiratory: normal respiratory effort Auscultation: + diminished lung sounds (Left base); no crackles and no wheezes Cardiovascular: Rate/Rhythm: regular rate and + irregularly irregular Heart Sounds: no murmur Extremities: + edema (1+ pitting edema to the knees bilaterally, improved) Gastrointestinal (Abdomen): Inspection/Auscultation: + abdomen distended (mild) and normal bowel sounds Percussion/Palpation: abdomen soft; abdomen nontender Skin: + rash (Chronic venous stasis erythema l egs bilaterally) Psychiatric: A+Ox3, euthymic affect Results & Data Results & Data Vital Signs (Past 12 Hours) Vital Signs Temp Pulse Pulse Resp BP Pulse Ox O2 Del Method 11/01/24 16:00 36.7 C 101 H 18 115/75 93 Room Air 11/01/24 15:11 87 11/01/24 11:29 36.2 C L 84 17 126/73 96 Room Air 11/01/24 08:06 90 11/01/24 07:50 36.7 C 68 16 116/68 95 Room Air Laboratory Results BMP, Mag, INR reviewed PG Care Time/CCT Total # of Minutes Spent Total Time Spent with Patient: Total time spent is greater than 50% in coordination of care (as documented) at patient's floor/unit and/or counseling patient: Coding Level of Care Code 27282 SUB INP/OBS CARE 3/50MIN Diagnoses Acute on chronic diastolic CHF (congestive heart failure) I50.33 Paroxysmal atrial fibrillation I48.0 Atrial fibrillation type: paroxysmal Right inguinal hernia K40.90 (2) Atrial fibrillation Atrial fibrillation type: paroxysmal Qualified Code(s): I48.0 - Paroxysmal atrial fibrillation
[2024-11-02 07:43] VITALS: PULSE 92; RESP 20; TEMP 97.3; O2SAT 94
[2024-11-02 07:55] LABS: BUN Creatinine Ratio 22.9 (10-20); Calcium 8.9 mg/dl (8.6-10.3); Creatinine Clr Calc Pharmacy 35.4 ml/min; Magnesium 2.1 mg/dl (1.7-2.4); Potassium 3.5 mmol/L (3.5-5.1)
[2024-11-02 07:58] LABS: INR 1.5 (0.9-1.1); Prothrombin Time 15.6 Seconds (9.0-12.0)
[2024-11-02] MEDS ORDERED: TORSEMIDE 20 MG TAB PO SCH ×2 (09:00→09:15)
--- NOTE | 2024-11-02 09:00 | Discharge Summary ---
Discharge Summary Date of Service November 02, 2024 Principal Dx & Hospital Course #1 = Principal Diagnosis (1) Acute on chronic diastolic CHF (congestive heart failure): (2) Atrial fibrillation: (3) Right inguinal hernia: Plan This patient is and 89-year-old male with PMH of HTN, permanent atrial fibrillation, right heart failure/severe TR, chronic venous insufficiency s/p multiple endovenous ablations, embolic CVA in 2007, and polyneuropathy. He presented on 10/30 for SOB/dyspnea on exertion. This has been an ongoing issue since July 2024 with an acute worsening over the past couple days. Additionally, with increased bilateral lower extremity swelling x 2-3 weeks. #Acute on chronic right-sided CHF/pulmonary hypertension/severe TR/pleural effusions-presented with SOB and FLETCHER, with BNP elevated at 626, left greater than right pleural effusions on CXR. Last echocardiogram on 03/01/2020 revealed LVEF at 55 to 60% and severe tricuspid regurgitation. Appreciate cardiology consultation-ECHO here with EF greater than 70%, small LV cavity with moderate LVH, severe RAYO, moderate-severe TR, severe pulmonary HTN, small pericardial effusion, large left pleural effusion Diuresed with lasix 80mg IV bid and with 7 kg weight loss, I/Os not accurate but show net neg 2.87L while here. 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, peripheral edema much improved, not SOB with exertion -Cardiology wants to rule out cardiac amyloidosis-SPEP, UPEP, serum free light chains pending at time of discharge -Continue Daily weights, low-sodium diet, fluid restriction 1800mL on discharge -Received Lasix 80 mg IV BID17 while hospitalized and converted to torsemide 40mg po qAM on 11/02 -Plan to add SGLT2i after discharge with CHF clinic -Referral to CHF clinic made-f/u within 1 week -Continue eplerenone after discharge (received Aldactone while in hospital) -Cardiology to consider cardiac MRI versus bone scintigraphy as an outpatient for workup for amyloid -Follow BMP, magnesium as outpt and add poKCl supplement as needed but hold for now given resuming home eplerenone -follow CXR in 2 weeks as outpt to ensure pleural effusions resolving #Right inguinal hernia-originally scheduled for a right inguinal hernia repair with Dr. Song on 10/31-appreciate surgery consultation-hernia is not strangulated and this is not urgent Surgery canceled and will be rescheduled after cardiac issues optimized as an outpatient -Resumed Coumadin on follow INR # Permanent atrial fibrillation-rate controlled, coumadin was on hold for scheduled hernia operation prior to admission -continue warfarin, INR 1.5 today -follow PT/INR within 3-5 days given change in diuretic to torsemide-follows with anticoag clinic -Continue metoprolol succinate same dose #Elevated troponin-troponin 70.4/70/80, no chest pain-suspect demand ischemia in the setting of heart failure/A-fib. Echocardiogram without wall motion abnormalities #Elevated LFTs-total bilirubin and alkaline phosphatase mildly elevated-could be hepatic congestion from heart failure- -Follow LFTs as outpt #History of embolic CVA-no acute issues, no residual deficits -Resumed Coumadin, following INR #Microscopic hematuria-UA here with microscopic blood -Follow with repeat UA as an outpatient in 3 weeks DVT prophylaxis-Coumadin Disposition-dc to home Notes For Next Care Provider Check BMP, Mag with CHF clinic in 1 week Check PT/INR in 3-5 days Repeat UA for microscopic hematuria in 3 weeks Check CXR in 2 weeks Medication Changes From Visit Added torsemide 40mg po qAM Discontinued lasix Admission HPI Per Admitting Provider Alex is a pleasant 89-year-old male with PMH of HTN, atrial fibrillation, s evere tricuspid regurgitation, and polyneuropathy. He presented on 10/30 for SOB/dyspnea. This has been an ongoing issue since July 2024 with an acute worsening over the past couple days. Additionally, bilateral lower extremity swelling x 2-3 weeks. Patient denies SOB at rest, but endorses FLETCHER. His at bedside reports that she notices conversational dyspnea whenever he is up and moving around, and he is taking longer and longer to return to baseline when he rests. Patient reports that he sleeps elevated at night; unable to assess orthopnea. He does ride a stationary bike 3 times per week, which never used to bother him, but it is gotten worse lately. No recent change in diet. He reports he watches his salt intake. He has reported increased weight lately. He believes his dry weight is around 160 - 163lb, but reports a weight increase to 169lb over the past few days. Patient reports good compliance with taking his Lasix 1.5 tablets in the morning and 1.0 tablets in the afternoon. He took his regular morning medicine today. Normally he takes warfarin at night, but he stopped taking this as he has an upcoming right inguinal hernia operation scheduled for tomorrow on 10/31. Patient stopped taking warfarin on 10/26. He reports that he does not have pain at present with his hernia, but some days he will have moderate pain, and others he will not have any pain at all. He ambulates with a cane as needed. He denies smoking, tobacco use, recent alcohol use. He is not self on oxygen at baseline or CPAP at night. Patient reports he has been to his ([facility]) for 60 years. Patient's vitals are stable at time of admission. ED course: Lasix 60 mg IV ROS: Patient endorses worsening FLETCHER, weight gain, lower extremity edema, and occasional lightheadedness. Patient denies fever, chills, night-sweats, dizziness, chest pain, chest palpitations, SOB at rest, pleuritic CP, cough, abdominal pain, N/V/D, or changes in urinary/bowel habits. Discharge Exam Constitutional WD/WN, vitals as above Respiratory normal respiratory effort Auscultation: + diminished lung sounds (Left base); no crackles and no wheezes Cardiovascular Rate/Rhythm: regular rate and + irregularly irregular Heart Sounds: no murmur Extremities: + edema (1+ pitting edema to the knees bilaterally, improved) Gastrointestinal (Abdomen) Inspection/Auscultation: + abdomen distended (mild) and normal bowel sounds Percussion/Palpation: abdomen soft; abdomen nontender Skin + rash (Chronic venous stasis erythema legs bilaterally) Psychiatric A+Ox3, euthymic affect Discharge Plan Discharge Items Patient Disposition: Home - Self-Care Reason For Visit: ACUTE ON CHRONIC CHF Discharge Diagnosis: Acute on chronic HFpEF Pleural effusion Condition on Discharge: Good Activity: As commented below Lifting: Gradually increase as tolerated Bathing: No limitations Exercise/Sports: Gradually increase as tolerated Non-emergency contact: Primary Care Provider and Pourer Call non-emergency contact if: you have any medication questions and your symptoms worsen Follow-up/Referrals: Kellee Freeman MD [Primary Care Provider] - (Follow up within 1-2 weeks) Kriss Robins PA-C [Physician Machine Sign Writer] - (Follow up within 1 week-this will be scheduled for you) Diet: Low Sodium (2gm) Fluids: 1800ml (7 cups) Addtl Attending Provider Instructions: You were admitted with fluid overload from heart failure. You were treated with IV lasix and had improvement. Your water pill will be changed from furosemide to torsemide to improve your fluid retention. You will be enrolled in the CHF Clinic and will be scheduled to see Ms. Kriss Robins PA-C there in the near future. She will help you manage your heart failure to keep you feeling better and keep you out of the hospital. She will likely add on another new medication for heart failure at some point called Victoriano. There are some blood and urine tests still pending that the Pourer will follow up on after discharge to help look for causes of your heart failure. You will need to have a chest xray performed in about 2 weeks to see if the fluid around your lungs is improving. Your PCP can order this. You will also need to have your PT/INR checked in within the next 3-5 days- please call to schedule this. Call your Primary Care doctor if any of the following symptoms or problems start or get worse: * Shortness of breath or difficulty breathing * Wake up at night short of breath * Chest pain * Cough * Swelling of your hands, feet, or legs * More fatigued or tired with your normal activity * Palpitations - sudden fast heart beats WEIGHT * Weigh yourself every morning after using the bathroom. * Use the same scale. * Wear the same amount of clothing. * Write your weight down on a chart. * Call your Primary Care doctor if you gain more than 2-3 pounds in 1-2 days. MEDICATIONS * Use this discharge instruction sheet for medication instructions. * Take your medications at the time your doctor ordered. * Do not skip a dose of your medicines. * If you miss a dose of medicine, take it as soon as possible, but DO NOT DOUBLE A DOSE. * Read your medicine information when you get home. * Know all of the side effects of your medicine. If in doubt, ask your pharmacist * Call your Primary Care doctor's office if you have any side effects. * Be sure all of your doctors know what medicine and herbs you take (including cold, flu, and herbal medicine). Take the following with you to your follow-up doctor appointments: * Weight Chart * Medication List * List of questions Do not drink excessive alcohol, beer or wine. Pending Studies at Discharge: Yes (SPEP,UPEP,Serum free light chains) Stand-Alone Forms: My [facility] [employer], Smoking Cessation Medications and DC Order Prescriptions: New torsemide 20 mg tablet 40 mg PO QAM Qty: 60 0RF Continued warfarin 5 mg tablet See Rx Instructions PO UD Qty: 65 2RF Rx Instructions: 5mg q Wednesday, Wednesday, Wednesday and, 2.5mg x 4 days per [facility] orally use as directed; cholecalciferol (vitamin D3) 25 mcg (1,000 unit) capsule 25 mcg PO DAILY metoprolol succinate 25 mg tablet extended release 24 hr 25 mg PO DAILY eplerenone [Inspra] 25 mg tablet 25 mg PO BID Discontinued furosemide [Lasix] 40 mg tablet 40 mg PO UD Rx Instructions: Take 60mg by mouth in the morning and 40mg by mouth in the evening Discharge Orders: Discharge Order- CHF (Routine); Ordered 11/02/24 Ordered By: Viviana Christie Admission Data Admit Date/Time: 10/30/24 18:02 Attending Provider: Viviana Christie Admit Provider: Brendan Vasquez Primary Care Provider: Kellee Freeman Other Providers: Brendan Vasquez; Kriss Robins; Sandor Cyr Jr Hospital Stay Data Consultations 10/30/24 17:30 ED Decision to Admit Stat 10/30/24 20:29 [facility] CHF Program Referral Routine 10/30/24 20:39 Consult Cardiology Routine Pending Results Patient Have Any Pending Studies at Discharge: Yes (SPEP,UPEP,Serum free light chains) Discharge Instructions Given to Patient (Per Discharging Provider) You were admitted with fluid overload from heart failure. You were treated with IV lasix and had improvement. Your water pill will be changed from furosemide to torsemide to improve your fluid retention. You will be enrolled in the CHF Clinic and will be scheduled to see Ms. Kriss Robins PA-C there in the near future. She will help you manage your heart failure to keep you feeling better and keep you out of the hospital. She will likely add on another new medication for heart failure at some point called Jardiance. There are some blood and urine tests still pending that the Pourer will follow up on after discharge to help look for causes of your heart failure. You will need to have a chest xray performed in about 2 weeks to see if the fluid around your lungs is improving. Your PCP can order this. You will also need to have your PT/INR checked in within the next 3-5 days- please call to schedule this. Call your Primary Care doctor if any of the following symptoms or problems start or get worse: * Shortness of breath or difficulty breathing * Wake up at night short of breath * Chest pain * Cough * Swelling of your hands, feet, or legs * More fatigued or tired with your normal activity * Palpitations - sudden fast heart beats WEIGHT * Weigh yourself every morning after using the bathroom. * Use the same scale. * Wear the same amount of clothing. * Write your weight down on a chart. * Call your Primary Care doctor if you gain more than 2-3 pounds in 1-2 days. MEDICATIONS * Use this discharge instruction sheet for medication instructions. * Take your medications at the time your doctor ordered. * Do not skip a dose of your medicines. * If you miss a dose of medicine, take it as soon as possible, but DO NOT DOUBLE A DOSE. * Read your medicine information when you get home. * Know all of the side effects of your medicine. If in doubt, ask your pharmacist * Call your Primary Care doctor's office if you have any side effects. * Be sure all of your doctors know what medicine and herbs you take (including cold, flu, and herbal medicine). Take the following with you to your follow-up doctor appointments: * Weight Chart * Medication List * List of questions Do not drink excessive alcohol, beer or wine. Total Time Total Time Spent Total Time Spent (In Minutes): 35 min Coding Level of Care Code 03995 INP/OBS DISCH >30 MIN Diagnoses Acute on chronic diastolic CHF (congestive heart failure) I50.33 Paroxysmal atrial fibrillation I48.0 Atrial fibrillation type: paroxysmal Right inguinal hernia K40.90
[2024-11-02] MEDS: TORSEMIDE 20 MG TAB PO SCH (09:20)
[2024-11-02 09:40] VITALS: BP 147/93
[2024-11-03 11:38] LABS: Abnormal Protein Band 1 DNR mg/24 h (NONE DETECTED); Abnormal Protein Band 2 DNR mg/24 h (NONE DETECTED); Abnormal Protein Band 3 DNR mg/24 h (NONE DETECTED); Creatinine, 24 hr Urine 0.39 g/24 h (0.50-2.15); Protein, Urine 24 Hour 44 mg/24 h (<150); Ur Albumin % 48 %; Ur Alpha-1-globulin % 10 %; Ur Alpha-2-globulin % 17 %; Ur Beta Globulin % 12 %; Ur Gamma Globulin % 14 %; Ur Protein/Creatinine Rat mg/g 111 mg/g creat (<100); Urine Protein/Creatinine Ratio 0.111 (<0.100)
[2024-11-06 12:57] LABS: Albumin 3.4 g/dL (3.8-4.8); Alpha 1 Globulin 0.3 g/dL (0.2-0.3); Alpha 2 Globulin 0.6 g/dL (0.5-0.9); Beta-1-Globulin 0.4 g/dL (0.4-0.6); Beta-2-Globulin 0.6 g/dL (0.2-0.5); Free Kappa 62.3 mg/L (3.3-19.4); Free Kappa/Lambda Ratio 1.75 (0.26-1.65); Free Lambda 35.6 mg/L (5.7-26.3); Gamma Globulin 1.7 g/dL (0.8-1.7); Monoclonal Protein Band 1 DNR g/dL (NONE DETECTED); Monoclonal Protein Band 2 DNR g/dL (NONE DETECTED); Monoclonal Protein Band 3 DNR g/dL (NONE DETECTED)
== END 2024-11-02 10:18 | disposition home or self-care (01) | DRG 291 ==
LOC: ED 15:07 → EDINP 18:02 → SUATTDRO 18:02 → 2N 20:14

== ENCOUNTER 2024-12-13 11:24 | Inpatient (IN) ==
[2024-12-13 12:26] LABS: Basophils # (auto) 0.01 K/uL (0.00-0.20); Basophils % (auto) 0.1 %; Hemoglobin 15.5 g/dl (14.0-18.0); Immature Granulocytes # (auto) 0.03 K/uL (0.01-0.20); Immature Granulocytes % (auto) 0.4 %; Lymphocytes # (auto) 0.27 K/uL (1.20-3.40); Lymphocytes % (auto) 3.5 %; Mean Corpuscular Hemoglobin 31.3 pg (25.0-34.0); Mean Corpuscular Hgb Conc 34.4 g/dL (32.0-36.0); Mean Corpuscular Volume 90.9 fL (80.0-100.0); Mean Platelet Volume 9.9 fL (9.4-12.4); Monocytes # (auto) 0.78 K/uL (0.11-0.59); Monocytes % (auto) 10.2 %; Neutrophils # (auto) 6.56 K/uL (1.40-6.50); Neutrophils % (auto) 85.8 %; Platelet Count 167 K/uL (130-400); RDW Coefficient of Variation 16.4 % (11.5-14.5); RDW Standard Deviation 53.4 fL (36.4-46.3); Red Blood Count 4.95 M/uL (4.70-6.10); White Blood Count 7.65 K/ul (4.8-10.8)
--- NOTE | 2024-12-13 12:41 | XRay Report ---
XR chest 1V portable CLINICAL HISTORY: Dyspnea, fluid overload COMPARISON STUDY: 11/08/2024 FINDINGS: There is stable cardiomegaly without pulmonary vascular congestion. There are bilateral ple ural effusions, moderate on the left and small on the right, stable. There is an interval large right pneumothorax. IMPRESSION: 1. Interval large right pneumothorax. 2. Stable bilateral pleural effusions, left greater than right. ACT 112: Negative or not required by law. Electronically signed by: Prince Atkins M.D. 12/13/2024 12:39 PM
[2024-12-13 12:48] LABS: Albumin Level 4.3 gm/dl (3.4-5.0); BUN Creatinine Ratio 28.6 (10-20); Bilirubin,Total 3.2 mg/dl (0.2-1.0); Calcium 10.4 mg/dl (8.6-10.3); Creatinine Clr Calc Pharmacy 25.1 ml/min; Globulin 4.3 gm/dl (2.5-4.0); Potassium 4.1 mmol/L (3.5-5.1); Total Protein 8.6 gm/dl (6.0-8.3)
--- NOTE | 2024-12-13 13:24 | Pulmonary Consultation ---
Date of Consultation December 13, 2024 Assessment & Plan (1) (HFpEF) heart failure with preserved ejection fraction: (2) SOB (shortness of breath): (3) Pleural effusion: (4) Hydropneumothorax: (5) Atrial fibrillation: (6) Pulmonary hypertension: (7) Acute exacerbation of CHF (congestive heart failure): Plan Chest x-ray 12/13/2024 personally reviewed: Good inspiratory effort, large right- sided hydropneumothorax, left-sided pleural effusion, increased cardiac silhouette, no clear lung infiltrate appreciated 2D echo 10/31/2024: Moderate concentric LVH, EF> 70%, severe RA dilation, mildly dilated RV with normal function, PASP 65-70 mmHg, small pericardial effusion without signs of tamponade -- Spontaneous right-sided hydropneumothorax Patient did have hernia repair approximately a week ago for which she was intubated That could be an inciting event He did have chest discomfort and worsening shortness of breath. --Bilateral pleural effusion The underlying etiology is most likely patient's underlying HFpEF with pulmonary hypertension S/p thoracentesis 05/12/2022, 1700 serosanguineous fluid removed, transudative as per lights criteria Cytology negative for malignancy Pleural:LDH 99, protein 3.4, pH 7.52 Serum:LDH 179, total protein 7.4 -- Pulmonary hypertension Likely type II Plan as per cardiology and primary care 2D echo 10/31/2024: Moderate concentric LVH, EF> 70%, severe RA dilation, mildly dilated RV with normal function, PASP 65-70 mmHg, small pericardial effusion without signs of tamponade -- A. fib On warfarin Plan: Will put chest tube on the right side Given the lower extremity edema which is worsened from before as well as pulmonary hypertension worsen, would recommend diuresis to keep the patient negative balance Recommend strict in and out, consider Yoder catheter if need be Risk and benefit of the procedure explained to the patient in depth. Patient understands and wants to go ahead with the procedures Consent signed, witnessed and put in the chart Please note the above document was generated using voice recognition software. It may contain grammatical, syntax or spelling errors.Any formal questions or concerns about the content, text or information contained within the body of this dictation should be directly addressed to the provider for clarification. History of Present Illness History of Present Illness 89-year-old male came to the hospital with chest discomfort, he was found to have large right-sided hydropneumothorax Past medical history: A. fib on warfarin, hypertension, cervical radiculopathy, CKD Patient was last seen by me on 12/14/2022 Patient's was in the room during interrogation examination As per patient's he was complaining of worsening shortness of breath since last couple of days and today he was having some chest pain as well When he was brought to the ER the chest x-ray showed large sided pneumothorax with pleural effusion bilaterally I was consulted by ER Dr. Henry At the time of examination patient was not in any distress He was saturating well on room air Blood pressure was in the high 110s, heart rate in the 90s. Did complain of some right-sided discomfort. Denied any recent trauma, no falling down. No fever or chills Denies any cough or fits of cough recently No hemoptysis Patient has been losing some weight lately. As per the this is because of poor appetite No headache, no blurry vision Social history: Lifetime non-smoker, social alcohol, denies any illicit drug use. Used to work in [employer] business Pets: None Allergies: Denies Asthma: No personal or family history of asthma Lung cancer: No history of lung cancer in the family Allergies Allergy/AdvReac Type Severity Reaction Status Date / Time suture glue Allergy Intermediate Rash Uncoded 12/05/24 05:36 Home Medications Medication Instructions Recorded Confirmed Type cholecalciferol (vitamin D3) 25 25 mcg PO DAILY 01/11/24 12/13/24 History mcg (1,000 unit) capsule eplerenone 25 mg tablet (Inspra) 25 mg PO BID 10/19/24 12/13/24 History metoprolol succinate 25 mg 25 mg PO QAM 10/19/24 12/13/24 History tablet,extended release 24 hr empagliflozin 10 mg tablet 10 mg PO DAILY #30 tabs 11/09/24 12/13/24 Rx (Jardiance) torsemide 20 mg tablet 80 mg (4 x 20 mg) PO QAM #60 tabs 12/04/24 12/13/24 Rx oxycodone 5 mg tablet 5 - 10 mg (1 - 2 x 5 mg) PO 12/05/24 12/13/24 Rx .[id number] PRN pain #15 tabs warfarin 5 mg tablet 2.5 - 5 mg PO UD 12/13/24 12/13/24 History Patient History Medical History (Updated 12/13/24 @ 13:38 by Yessi Gramajo MD, [facility]) SOB (shortness of breath) 10/30/24-11/02/24 [facility] ER/IP - as per patients patient has significantly improved with diuretic and patient hasn't complained of SOB or fluid retention. Pleural effusion Large bilateral pleural effusions L>R per 11/08/24 CXR (currently on diuretics); pulmonary symptoms resolved as of 11/23/24 HF Clinic note LVH (left ventricular hypertrophy) Moderate to severe per cardio records; ECHO appearance consistent with infiltrative disease- currently undergoing amyloid work up (HFpEF) heart failure with preserved ejection fraction Acute on chronic right sided CHF 10/30/24-11/02/24 (admitted to [place]) IV lasix - at home d/c furosemide and started torsemide - as per patients weight has remained stable, denies dyspnea, and patient is "feeling much better" Gait disturbance Cane Osteoarthritis Severe tricuspid regurgitation Moderate to severe TR per 10/31/24 ECHO Polyneuropathy Hypertension Bilateral leg edema 10/30/24-11/02/24 [facility] ER/IP IV Lasix - d/c furosemide and started torsemide - as per patients weight has remained stable, denies dyspnea, able to ambulate with use of cane and patient is "feeling much better" Chronic venous insufficiency of lower extremity Per records Hearing loss Right Hearing Aid - stroke residual Atrial fibrillation [facility] - Warfarin Anemia Pulmonary hypertension Severe pulm HTN - PASP 65-70mmHg Asymmetrical left sensorineural hearing loss R/t stroke (2007) per patient/ Cerebrovascular accident, embolic (2007) Left Hearing Loss - no other residuals as per patients /patient 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 Basal cell carcinoma Actinic keratosis Chronic gastroesophageal reflux disease Controlled Surgical History (Updated 12/05/24 @ 08:25 by Estrella Henry RN) H/O right inguinal hernia repair (12/05/24) Open Right Incarcerated Inguinal Hernia Repair, with Mesh(Right) - Germain Song, DO PONV (postoperative nausea and vomiting) Hx of colonoscopy History of arthroscopy of left knee H/O basal cell carcinoma excision S/P thoracentesis (2021) H/O carpal tunnel repair bilateral Family History Other No family history of adverse response to anesthesia No family history of bleeding disorder Denies family history of Ovarian cancer Prostate cancer Myocardial infarction Breast cancer Colorectal cancer Social History Smoking Status: Never smoker Second Hand Exposure: No; Do You Dip or Chew Tobacco: No; Hx Alcohol Use: No Hx Substance Use: No Preferred Language: Eritrean Communication Ability: Effective Visual Impairment: No Limitations Hearing Ability: Normal Plan Coordinator Required: No Beliefs That Will Affect Care: None marital status: Current Living Situation: Spouse current occupational status: retired Feels Safe at Home: Yes caffeine: Yes Dental Care, Regularly: Yes Seatbelt Use: always Sunscreen Use: Yes Assistive Devices: Cane Review of Systems 2 Review of Systems: All systems reviewed & are unremarkable except as noted in HPI & below Physical Exam 2 Physical Exam: Constitutional: No acute distress HEENT: EOMI, PERRLA Respiratory system: Decreased air entry bilaterally, more decreased on the right side CVS: S1-S2 positive, no murmurs or gallops, distant heart sounds Abdomen: Soft, nontender, nondistended, positive bowel sounds x4 Extremities: +2 pulses bilaterally radialis/ dorsalis pedis, no cyanosis, +3 pitting edema bilateral lower extremity Neuro: Awake alert oriented x3 Psych: Normal mood and affect G/U: No Yoder Skin: no rashes, warm and dry Lymphatic: no cervical or axillary lymphadenopathy Results & Data Results & Data Vital Signs (Past 12 Hours) Vital Signs Temp Pulse Resp BP Pulse Ox O2 Del Method 12/13/24 12:19 98 H 12/13/24 12:06 96 H 24 94 Room Air 12/13/24 12:05 100 Room Air 12/13/24 11:40 36.2 C L 97 H 18 115/75 95 Room Air Laboratory Results 12/13/24 12:12 12/13/24 12:12 PG Care Time/CCT Total # of Minutes Spent Total Time Spent with Patient: Total time spent is greater than 50% in coordination of care (as documented) at patient's floor/unit and/or counseling patient: Coding Level of Care Code 42998 INT INP/OBS CARE MIN Diagnoses (HFpEF) heart failure with preserved ejection fraction I50.30 SOB (shortness of breath) R06.02 Pleural effusion J90 Hydropneumothorax J94.8 Atrial fibrillation I48.91 Pulmonary hypertension I27.20 Acute exacerbation of CHF (congestive heart failure) I50.9
--- NOTE | 2024-12-13 13:26 | Procedure Note ---
Procedure Note Date of Service December 13, 2024 Procedure: Pigtail chest tube insertion Video Surveillance Technician: Dr. Yessi Gramajo Indication: Right-sided moderate to large hydropneumothorax Consent: Signed by patient and verified with timeout prior to procedure Anesthesia: 1% lidocaine without epinephrine local Procedure: Consent was verified and timeout performed. Appropriate imaging studies were reviewed prior to the procedure. Patient was placed in a seated position. Appropriate site above the diaphragm on the right midaxillary line fourth intercostal space for chest tube insertion was selected. The skin was prepped and draped in normal sterile fashion. Lidocaine was used for local analgesia. Air was aspirated via the finder needle. A small skin seng was made with the scalpel and the catheter over the needle apparatus was advanced over the rib into the pleural space. With the help of guidewire and Seldinger technique, 14 Telugu pigtail catheter was inserted and connected to Pleur-evac. Continuous air leak was appreciated with lasted for less than 20 seconds. Chest tube was connected to -20 continuous suction Respiratory variation was appreciated in the Pleur-evac Chest x-ray to follow The patient tolerated the procedure without obvious complication Complications: None Blood loss: Less than none [facility] Procedure Codes (Charges) Pulmonary/Thoracic Procedure 1: Pulmonary and Thoracic: 66587 Tube thoracostomy Tubes, Drains, and Vasc Access Procedure 1: Tubes, Drains, and Vasc Access: [id number] Ultrasound Guidance For Vascular Coding CPT Codes Pulmonary/Thoracic - Pulmonary and Thoracic: 77875 Tube thoracostomy ([id number]) Tubes, Drains, and Vasc Access - Tubes, Drains, and Vasc Access: [id number] Ultrasound Guidance For Vascular ([id number]) Additional Codes Date of Service ([email or web address])
--- NOTE | 2024-12-13 13:31 | XRay Report ---
XR chest 1V portable CLINICAL HISTORY: s/p RIGHT sided pigtail catheter placement COMPARISON STUDY: 12/13/2024 FINDINGS: There is an interval pigtail chest tube at the right base. There is a small residual right pneumothorax, improved. Stable opacity at the left base with obscuration of the left hemidiaphragm. S table prominent cardiomegaly without pulmonary vascular congestion. IMPRESSION: Interval right chest tube with small residual right pneumothorax, improved. ACT 112: Negative or not required by law. Electronically signed by: Prince Atkins M.D. 12/13/2024 1:30 PM
--- NOTE | 2024-12-13 13:32 | Electrocardiogram Report ---
Test Reason : Blood Pressure : */* mmHG Vent. Rate : 93 BPM Atrial Rate : * BPM P-R Int : * ms QRS Dur : 94 ms QT Int : 358 ms P-R-T Axes : * -73 242 degrees QTcB Int : 445 ms Atrial fibrillation with a competing junctional pacemaker Left axis deviation Low voltage QRS Incomplete right bundle branch block Cannot rule out Anterior infarct (cited on or before 30-Oct-2024) Abnormal ECG When compared with ECG of 30-Oct-2024 16:22, Nonspecific T wave abnormality now evident in Inferior leads Confirmed by Christiano Whitley ([id number]) on 12/13/2024 1:32:05 PM Referred By: Confirmed By: Christiano Whitley
--- NOTE | 2024-12-13 13:44 | History & Physical Report ---
Date of Service December 13, 2024 Assessment & Plan (1) Pneumothorax: (2) Acute heart failure with preserved ejection fraction: (3) SIDNEY (acute kidney injury): Plan Alex is a pleasant 89-year-old male with PMH of HFpEF and atrial fibrillation (on warfarin). He presented on 12/13 for SOB/dyspnea. Found to have a pneumothorax on arrival and had a chest tube placed in the ED. Additionally, patient is coming in for acute CHF. While he is likely to benefit from diuresis, he does clinically appear dehydrated/volume contracted, and will likely require several days in the hospital. # Spontaneous right-side pneumothorax CXR on arrival revealed interval large right pneumothorax Non-hypoxic; non-tachypneic Pulmonary consult appreciated Chest tube placed Serial CXRs x 3 days Continuous pulse oximetry #Acute on chronic heart failure with preserved ejection fraction Recent [place] admission 10/30 -11/02 for CHF Follows with the heart failure clinic Last echo on 10/31 revealed LVEF greater than 70%; severe right atrial dilation; severe pulmonary hypertension at 65-70mmHg BNP elevated at 932 (most recently 686 on 11/08) Okay to continue empagliflozin Hold torsemide Lasix 40 mg IV BID17 + K Strict I&O monitoring Daily weights #SIDNEY BUN 60, creatinine 2.10 (baseline 1.5) Avoid nephrotoxic agents where possible Hold eplerenone While patient appears volume contracted, will require diuresis Patient's kidney function continues to decline with diuresis, would consider reaching out to nephrology #LE edema +3 pitting edema extending up from the dorsal aspect of the feet to the waist LENA hose thigh-high bilaterally #Paroxysmal atrial fibrillation In A-fib on arrival; rate controlled Continue warfarin 5mg in the evening //, 2.5mg all other days) Note: INR mildly elevated at 3.1 on arrival; recommend holding warfarin if INR >3.5 #Recent hernia repair Right inguinal hernia repair on 12/05; ?Intubation as possible source for pneum othorax Disposition: Admit to PCU telemetry DNR/DNI Regular diet VTE PPx: Continue Eliquis History of Present Illness Chief Complaint: SOB/dyspnea Primary Care Provider: Kellee Freeman MD Alex is an 89-year-old male with PMH of atrial fibrillation (on warfarin), HFpEF, pulmonary hypertension, and polyneuropathy. He presented on 12/13 for SOB/dyspnea. Per , the patient was having a "terrible night" last night. He got up multiple times to use the bathroom, but required his 's help to walk as he was having difficulty breathing when he walked. When he finally got to sleep, noted that he was "gasping for breath" while taking a nap. Patient endorses both SOB at rest and with exertion. This has been an ongoing problem over the past several months due to his CHF, but he does report an acute exacerbation last night. Patient recently had hernia surgery/repair on 12/05. He was discharged on oxycodone, but reports he is only required 2 tablets; has used Tylenol for pain. He does not use supplemental oxygen at home or CPAP at night. Patient took all of his regular morning medicines today except for his eplerenone. He is set to take his warfarin 5 mg this evening, which he takes for atrial fibrillation. Additionally, he reports that he has had increased swelling in his legs over the past several days. No history of DVT/PE to his knowledge. Patient ambulates with a cane at baseline. He reports he is still producing urine. He denies smoking, tobacco use, recent alcohol use. Patient's vitals are stable at time admission. ED course: ROS: Patient endorses SOB at rest and with exertion, mild pleuritic CP on the right side, nausea (attributes to medications), constipation, and swelling in the legs bilaterally. Patient denies fever, chills, night-sweats, chest pain, chest palpitation, cou gh, hemoptysis, abdominal pain, vomiting, diarrhea, burning with urination, or blood in the urine/stool. Allergies Allergy/AdvReac Type Severity Reaction Status Date / Time suture glue Allergy Intermediate Rash Uncoded 12/05/24 05:36 Home Medications Medication Instructions Recorded Confirmed Type cholecalciferol (vitamin D3) 25 25 mcg PO DAILY 01/11/24 12/13/24 History mcg (1,000 unit) capsule eplerenone 25 mg tablet (Inspra) 25 mg PO BID 10/19/24 12/13/24 History metoprolol succinate 25 mg 25 mg PO QAM 10/19/24 12/13/24 History tablet,extended release 24 hr empagliflozin 10 mg tablet 10 mg PO DAILY #30 tabs 11/09/24 12/13/24 Rx (Jardiance) torsemide 20 mg tablet 80 mg (4 x 20 mg) PO QAM #60 tabs 12/04/24 12/13/24 Rx oxycodone 5 mg tablet 5 - 10 mg (1 - 2 x 5 mg) PO 12/05/24 12/13/24 Rx [id number] PRN pain #15 tabs warfarin 5 mg tablet 2.5 - 5 mg PO UD 12/13/24 12/13/24 History Past Med/Surg History Problem List (Updated 12/13/24 @ 17:37 by Felix Gr PA-C) SIDNEY (acute kidney injury) Acute heart failure with preserved ejection fraction Pneumothorax Acute exacerbation of CHF (congestive heart failure) Hydropneumothorax Encounter for pre-operative examination Tricuspid regurgitation Pleural effusion on left (Acute) Bilateral leg edema (Acute) Incarcerated right inguinal hernia Foreskin swelling Lymphopenia Pleural effusion, right Anemia Chronic venous insufficiency of lower extremity Osteoarthritis of basilar joint of thumb Cervical radiculopathy (Chronic) Polyneuropathy (Chronic) Atrial fibrillation (Chronic) Hypertension (Chronic) Osteoarthritis (Chronic) Medical History (Updated 12/13/24 @ 17:37 by Felix Gr PA-C) SOB (shortness of breath) 10/30/24-11/02/24 [facility] ER/IP - as per patients patient has significantly improved with diuretic and patient hasn't complained of SOB or fluid retention. Pleural effusion Large bilateral pleural effusions L>R per 11/08/24 CXR (currently on diuretics); pulmonary symptoms resolved as of 11/23/24 HF Clinic note LVH (left ventricular hypertrophy) Moderate to severe per cardio records; ECHO appearance consistent with inf iltrative disease- currently undergoing amyloid work up (HFpEF) heart failure with preserved ejection fraction Acute on chronic right sided CHF 10/30/24-11/02/24 (admitted to [place]) IV lasix - at home d/c furosemide and started torsemide - as per patients weight has remained stable, denies dyspnea, and patient is "feeling much better" Gait disturbance Cane Osteoarthritis Severe tricuspid regurgitation Moderate to severe TR per 10/31/24 ECHO Polyneuropathy Hypertension Bilateral leg edema 10/30/24-11/02/24 [facility] ER/IP IV Lasix - d/c furosemide and started torsemide - as per patients weight has remained stable, denies dyspnea, able to ambulate with use of cane and patient is "feeling much better" Chronic venous insufficiency of lower extremity Per records Hearing loss Right Hearing Aid - stroke residual Atrial fibrillation [facility] AC Clinic - Warfarin Anemia Pulmonary hypertension Severe pulm HTN - PASP 65-70mmHg Asymmetrical left sensorineural hearing loss R/t stroke (2007) per patient/ Cerebrovascular accident, embolic (2007) Left Hearing Loss - no other residuals as per patients /patient 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 Basal cell carcinoma Actinic keratosis Chronic gastroesophageal reflux disease Controlled Surgical History (Updated 12/05/24 @ 08:25 by Estrella Henry RN) H/O right inguinal hernia repair (12/05/24) Open Right Incarcerated Inguinal Hernia Repair, with Mesh(Right) - Germain Song DO PONV (postoperative nausea and vomiting) Hx of colonoscopy History of arthroscopy of left knee H/O basal cell carcinoma excision S/P thoracentesis (2021) H/O carpal tunnel repair bilateral Family History Other No family history of adverse response to anesthesia No family history of bleeding disorder Denies family history of Ovarian cancer Prostate cancer Myocardial infarction Breast cancer Colorectal cancer Social History Smoking Status: Never smoker Second Hand Exposure: No; Do You Dip or Chew Tobacco: No; Tobacco Cessation Education Requested by Patient: No Hx Alcohol Use: No Hx Substance Use: No Preferred Language: [place]i Communication Ability: Effective Visual Impairment: No Limitations Hearing Ability: Normal Platform Supervisor Required: No Beliefs That Will Affect Care: None marital status: Current Living Situation: Spouse current occupational status: retired Other Information That Helps Us Care for You: No Feels Safe at Home: Yes caffeine: Yes Dental Care, Regularly: Yes Seatbelt Use: always Sunscreen Use: Yes Assistive Devices: Cane, Glasses and Hearing Aid - Right Review of Systems Review of Systems: See HPI above Physical Exam Physical Exam: General: no acute distress; at bedside; non-toxic appearing; frail appearing; cooperative; SpO2 95% on RA HEENT: normocephalic, atraumatic; no scleral icterus; PERRLA; vision intact; hard of hearing Neck: supple; no lymphadenopathy; trachea midline Skin: warm, dry without signs of tenting; no cyanosis; no rashes, bruising, lesions, or erythema noted CV: chest tube in place draining serosanguineous fluid into Pleur-evac; mildly TTP around chest tube site; irregularly irregular rhythm; S1/S2 normal; no murmurs/rubs/gallops; pulses intact and symmetric at radial, DP, and PT Lungs: no acute respiratory distress; symmetrical chest wall expansion; clear breath sounds across all lung ritter w/o adventitious sounds; no wheezing ABD: Soft, NTP; right inguinal hernia scar noted without signs of infection or drainage; BS present; no rebound/guarding; no distention MSK: no tics or fasciculations; 3+ pitting edema extending from the dorsal aspect of the feet bilaterally up into the hips, mildly erythematous Neuro: A&Ox3; normal mood and affect; fluent speech; no focal deficits; sensation intact and symmetric in the lower extremity bilaterally Results & Data Results & Data Vital Signs (Past 12 Hours) Vital Signs Temp Pulse Resp BP Pulse Ox O2 Del Method 12/13/24 12:19 98 H 12/13/24 12:06 96 H 24 94 Room Air 12/13/24 12:05 100 Room Air 12/13/24 11:40 36.2 C L 97 H 18 115/75 95 Room Air Laboratory Results Abnormal lab results 12/13/24 Range/Units 12:12 RDW Std Deviation 53.4 H (36.4-46.3) fL RDW Coeff of Vasquez 16.4 H (11.5-14.5) % Neut # (Auto) 6.56 H (1.40-6.50) K/uL Lymph # (Auto) 0.27 L (1.20-3.40) K/uL [place] # (Auto) 0.78 H (0.11-0.59) K/uL Sodium 129 L (136-145) mmol/L Chloride 87 L (98-107) mmol/L BUN 60 H (6-23) mg/dl Creatinine 2.10 H (0.6-1.4) mg/dl BUN/Creatinine Ratio 28.6 H (10-20) Calcium 10.4 H (8.6-10.3) mg/dl Total Bilirubin 3.2 H (0.2-1.0) mg/dl AST 93 H (13-39) U/L Alkaline Phosphatase 117 H (34-104) U/L B-Natriuretic Peptide 932 H (0-100) pg/ml Total Protein 8.6 H (6.0-8.3) gm/dl Globulin 4.3 H (2.5-4.0) gm/dl Diagnostic Findings Chest X-Ray 12/13/24 12:01 XR chest 1V portable CLINICAL HISTORY: Dyspnea, fluid overload COMPARISON STUDY: 11/08/2024 FINDINGS: There is stable cardiomegaly without pulmonary vascular congestion. There are bilateral pleural effusions, moderate on the left and small on the right, stable. There is an interval large right pneumothorax. IMPRESSION: 1. Interval large right pneumothorax. 2. Stable bilateral pleural effusions, left greater than right. ACT 112: Negative or not required by law. Electronically signed by: Prince Atkins M.D. 12/13/2024 12:39 PM Chest X-Ray 12/13/24 13:04 XR chest 1V portable CLINICAL HISTORY: s/p RIGHT sided pigtail catheter placement COMPARISON STUDY: 12/13/2024 FINDINGS: There is an interval pigtail chest tube at the right base. There is a small residual right pneumothorax, improved. Stable opacity at the left base with obscuration of the left hemidiaphragm. Stable prominent cardiomegaly without pulmonary vascular congestion. IMPRESSION: Interval right chest tube with small residual right pneumothorax, improved. ACT 112: Negative or not required by law. Electronically signed by: Prince Atkins M.D. 12/13/2024 1:30 PM ECG Additional Comments: ECG revealed atrial fibrillation with competing junctional pacemaker at 93 bpm; QTc 445 Code Status & VTE Plan Code Status DNR/DNI VTE Prophylaxis Plan VTE Prophylaxis will be ordered: Yes Supervising Physician Co-Signing Physician Notes Patient seen and examined, chart reviewed, case discussed with Felix Gr PA-C and I agree with the assessment and plan as above except as otherwise noted Labs and images reviewed Alex Lerner is an 89yo M with a PMHx of CHFx who presented with progressive dyspnea, leg swelling, and JVD. XR shows interval large RIGHT pneumonthorax. Patient did recently have a incarcerated hernia repair.? Spontaneous versus incident pneumothorax from BPV. He also shows evidence of superimposed CHF with bilateral pleural effusions, and leg edema. Pulmonology was consulted for pneumothorax. Right-sided chest tube was placed by pulmonology. Maintain to -20, if development of pain may switch to waterseal Continue diuresis for CHF component. On home torsemide 80mg BID. Will convert to BID17 lasix. Seen at bedside after transfer to floor. Doing well, no pain. NO dyspnea. PG Care Time/CCT Total # of Minutes Spent Total Time Spent with Patient: Total time spent is greater than 50% in coordination of care (as documented) at patient's floor/unit and/or counseling patient: Coding [place] [address] INT INP/OBS CARE 3/75MIN Patient Type Established Medical Decision Making High Complexity Diagnoses Pneumothorax J93.9 Acute heart failure with preserved ejection fraction I50.31 SIDNEY (acute kidney injury) N17.9
[2024-12-13 14:07] LABS: INR 3.1 (0.9-1.1); Prothrombin Time 30.3 Seconds (9.0-12.0)
--- NOTE | 2024-12-13 14:12 | Emergency Department Note ---
Impression & Plan Pneumothorax, CHF exacerbation, Pleural effusion ED Provider Note NAME: CORINA GARCIA AGE: 89 SEX: M : 1935 ARRIVES VIA: Walk-In INFORMANT: [Patient][, ] ED PROVIDER(S): [Farhad Henry MD] CHIEF COMPLAINT: Difficulty breathing HPI: This is a 89-year-old male presenting for shortness of breath. Patient states that last night patient was having gasping breaths went home to sleep. He notes increasing fluid in his legs and ongoing shortness of breath. He was here about 1 month ago with fluid overload requiring diuresis. He notes no nausea vomiting or chest pain at this time. He reports no fevers or chills. He does report increasing leg swelling and more difficulty breathing. He has not tried laying flat. ROS: See above HPI for pertinent positives & negatives. A total of [10] systems reviewed and were otherwise negative. PAST MEDICAL HISTORY: [See Below] PAST SURGICAL HISTORY: [See Below] FAMILY HISTORY: [See Below] SOCIAL HISTORY: [See Below] HOME MEDICATIONS: [See Below] ALLERGIES: [See Below] VITALS: See Below PHYSICAL EXAMINATION: General: resting comfortably in no acute distress Head: Normocephalic and atraumatic Eyes: Normal inspection, extraocular muscles intact Ear, nose, throat: Normal external exam Neck: Normal range of motion Respiratory: Absent right-sided lung sounds Cardiovascular: Regular rate/rhythm, no murmur GI: soft, nontender, no guarding or rebound Extremities: nontender, moves all extremities Neuro: The patient awake and alert, appropriately conversive, no focal deficits, symmetric faces Skin: Warm, dry, and intact MEDICAL DECISION MAKING: this is a 89-year-old male presented for shortness of breath. The patient does have diminished breath sounds on the right side. X-ray generalized in the room, this shows an obvious right-sided pneumothorax with right pleural effusion and left pleural effusion. -Discussed care with Dr. Gramajo, laborer wrecking and salvaging, who will come down and about the patient and do chest tube placement. -Patient successfully had chest tube placed after Dr Gramajo. -Blood was reviewed showing no leukocytosis or anemia however there is INR 3.1. Hyponatremia 129, creatinine of 2.1, this elevated. BNP is 932 -Urinalysis revealed no signs of UTI -Will admit patient to hospital service for further care as well as CHF management. Discussed with Dr. Vernon for admission Differential diagnosis: CHF, pleural effusion, pneumothorax, pneumonia Independent History obtained from: Diagnostics interpreted by me: ECG: ECG independently interpreted by me with atrial fibrillation at a rate of 93, left axis deviation, incomplete right bundle branch block, [normal QTc], [no ST segment elevations consistent with STEMI criteria] Cardiac Monitoring: An order was placed for continuous cardiac monitoring. The monitor shows a rate of 104 with sinus rhythm. Past Med/Surg History Problem List (Updated 12/13/24 @ 19:43 by aFrhad Henry MD) Pleural effusion (Acute) CHF exacerbation (Acute) Pneumothorax (Acute) SIDNEY (acute kidney injury) Acute heart failure with preserved ejection fraction Pneumothorax Acute exacerbation of CHF (congestive heart failure) Hydropneumothorax Encounter for pre-operative examination Tricuspid regurgitation Pleural effusion on left (Acute) Bilateral leg edema (Acute) Incarcerated right inguinal hernia Foreskin swelling Lymphopenia Pleural effusion, right Anemia Chronic venous insufficiency of lower extremity Osteoarthritis of basilar joint of thumb Cervical radiculopathy (Chronic) Polyneuropathy (Chronic) Atrial fibrillation (Chronic) Hypertension (Chronic) Osteoarthritis (Chronic) Medical History (Updated 12/13/24 @ 19:43 by Farhad Henry MD) SOB (shortness of breath) 10/30/24-11/02/24 [facility] ER/IP - as per patients patient has significantly improved with diuretic and patient hasn't complained of SOB or fluid retention. Pleural effusion Large bilateral pleural effusions L>R per 11/08/24 CXR (currently on diuretics); pulmonary symptoms resolved as of 11/23/24 HF Clinic note LVH (left ventricular hypertrophy) Moderate to severe per cardio records; ECHO appearance consistent with infiltrative disease- currently undergoing amyloid work up (HFpEF) heart failure with preserved ejection fraction Acute on chronic right sided CHF 10/30/24-11/02/24 (admitted to CT) IV lasix - at home d/c furosemide and started torsemide - as per patients weight has remained stable, denies dyspnea, and patient is "feeling much better" Gait disturbance Cane Osteoarthritis Severe tricuspid regurgitation Moderate to severe TR per 10/31/24 ECHO Polyneuropathy Hypertension Bilateral leg edema 10/30/24-11/02/24 [facility] ER/IP IV Lasix - d/c furosemide and started torsemide - as per patients weight has remained stable, denies dyspnea, able to ambulate with use of cane and patient is "feeling much better" Chronic venous insufficiency of lower extremity Per records Hearing loss Right Hearing Aid - stroke residual Atrial fibrillation [facility] - Warfarin Anemia Pulmonary hypertension Severe pulm HTN - PASP 65-70mmHg Asymmetrical left sensorineural hearing loss R/t stroke (2007) per patient/ Cerebrovascular accident, embolic (2007) Left Hearing Loss - no other residuals as per patients /patient 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 Basal cell carcinoma Actinic keratosis Chronic gastroesophageal reflux disease Controlled Surgical History (Updated 12/05/24 @ 08:25 by Estrella Henry RN) H/O right inguinal hernia repair (12/05/24) Open Right Incarcerated Inguinal Hernia Repair, with Mesh(Right) - Germain Song DO PONV (postoperative nausea and vomiting) Hx of colonoscopy History of arthroscopy of left knee H/O basal cell carcinoma excision S/P thoracentesis (2021) H/O carpal tunnel repair bilateral Family History Other No family history of adverse response to anesthesia No family history of bleeding disorder Denies family history of Ovarian cancer Prostate cancer Myocardial infarction Breast cancer Colorectal cancer Social History Smoking Status: Never smoker Second Hand Exposure: No; Do You Dip or Chew Tobacco: No; Tobacco Cessation Education Requested by Patient: No Hx Alcohol Use: No Hx Substance Use: No Preferred Language: Spanish Communication Ability: Effective Visual Impairment: No Limitations Hearing Ability: Normal Author Agent Required: No Beliefs That Will Affect Care: None marital status: Current Living Situation: Spouse current occupational status: retired Other Information That Helps Us Care for You: No Feels Safe at Home: Yes caffeine: Yes Dental Care, Regularly: Yes Seatbelt Use: always Sunscreen Use: Yes Assistive Devices: Cane, Glasses and Hearing Aid - Right Allergies Allergies Allergy/AdvReac Type Severity Reaction Status Date / Time suture glue Allergy Intermediate Rash Uncoded 12/05/24 05:36 Home Meds Home Medications Medication Instructions Recorded Confirmed cholecalciferol (vitamin D3) 25 25 mcg PO DAILY 01/11/24 12/13/24 mcg (1,000 unit) capsule eplerenone 25 mg tablet (Inspra) 25 mg PO BID 10/19/24 12/13/24 metoprolol succinate 25 mg 25 mg PO QAM 10/19/24 12/13/24 tablet,extended release 24 hr warfarin 5 mg tablet 2.5 - 5 mg PO UD 12/13/24 12/13/24 Previous Rx's Medication Instructions Recorded empagliflozin 10 mg tablet 10 mg PO DAILY #30 tabs 11/09/24 (Jardiance) torsemide 20 mg tablet 80 mg (4 x 20 mg) PO QAM #60 tabs 12/04/24 oxycodone 5 mg tablet 5 - 10 mg (1 - 2 x 5 mg) PO 12/05/24 [id number] PRN pain #15 tabs Results & Data (ED) Vital Signs Vital Signs - 24 hr 12/13/24 11:40 12/13/24 12:05 12/13/24 12:06 Temperature 36.2 C L Temperature Source Skin Pulse Rate 97 H 96 H Pulse Rhythm Regular Respiratory Rate 18 24 Respiratory Effort / Characteristics Non-Labored Spontaneous Respiratory Depth Normal Respiratory Pattern Regular Blood Pressure 115/75 Blood Pressure Mean 88 Pulse Oximetry 95 100 94 Oxygen Delivery Method Room Air Room Air Room Air Sepsis Recent Fever Within 48 Hours No Sepsis New/Unexplained Change in Mental Status N/A Sepsis Action Taken by Nursing No Action Required 12/13/24 12:18 12/13/24 12:19 12/13/24 12:30 Temperature Temperature Source Pulse Rate 108 H 98 H 95 H Pulse Rhythm Respiratory Rate 27 H 20 Respiratory Effort / Characteristics Respiratory Depth Respiratory Pattern Blood Pressure 134/87 Blood Pressure Mean 102 Pulse Oximetry 94 93 Oxygen Delivery Method Room Air Room Air Sepsis Recent Fever Within 48 Hours Sepsis New/Unexplained Change in Mental Status Sepsis Action Taken by Nursing Laboratory Data 12/13/24 12:12 12/13/24 12:12 Lab Results 12/13/24 Range/Units 12:12 WBC 7.65 (4.8-10.8) K/ul RBC 4.95 (4.70-6.10) M/uL Hgb 15.5 (14.0-18.0) g/dl Hct 45.0 (42.0-52.0) % MCV 90.9 (80.0-100.0) fL MCH 31.3 (25.0-34.0) pg MCHC 34.4 (32.0-36.0) g/dL RDW Std Deviation 53.4 H (36.4-46.3) fL RDW Coeff of Vasquez 16.4 H (11.5-14.5) % Plt Count 167 (130-400) K/uL MPV 9.9 (9.4-12.4) fL Immature Gran % (Auto) 0.4 % Neut % (Auto) 85.8 % Lymph % (Auto) 3.5 % Noble % (Auto) 10.2 % Eos % (Auto) 0.0 % Baso % (Auto) 0.1 % Neut # (Auto) 6.56 H (1.40-6.50) K/uL Lymph # (Auto) 0.27 L (1.20-3.40) K/uL Noble # (Auto) 0.78 H (0.11-0.59) K/uL Eos # (Auto) 0.00 (0.00-0.50) K/uL Baso # (Auto) 0.01 (0.00-0.20) K/uL Immature Gran # (Auto) 0.03 (0.01-0.20) K/uL PT 30.3 H (9.0-12.0) Seconds INR 3.1 H (0.9-1.1) Sodium 129 L (136-145) mmol/L Potassium 4.1 (3.5-5.1) mmol/L Chloride 87 L (98-107) mmol/L Carbon Dioxide 32 (21-32) mmol/L Anion Gap 10 (3-11) BUN 60 H (6-23) mg/dl Creatinine 2.10 H (0.6-1.4) mg/dl Est Cr Clr Drug Dosing 25.1 ml/min eGFR 29.72 BUN/Creatinine Ratio 28.6 H (10-20) Glucose 97 (70-99(Fasting)) mg/dl Calcium 10.4 H (8.6-10.3) mg/dl Total Bilirubin 3.2 H (0.2-1.0) mg/dl AST 93 H (13-39) U/L ALT 37 (7-52) U/L Alkaline Phosphatase 117 H (34-104) U/L B-Natriuretic Peptide 932 H (0-100) pg/ml Total Protein 8.6 H (6.0-8.3) gm/dl Albumin 4.3 (3.4-5.0) gm/dl Globulin 4.3 H (2.5-4.0) gm/dl Albumin/Globulin Ratio 1.0 (0.9-2) Administered Medications Furosemide (Furosemide 40 Mg/4 Ml Vial) 40 mg IV [id number] SANDRA Stop: 01/12/25 17:14 Last Admin: 12/13/24 18:07 Dose: 40 mg Documented By: VIDA Imaging Data Radiologist's Impression: Chest X-Ray 12/13/24 12:01 XR chest 1V portable CLINICAL HISTORY: Dyspnea, fluid overload COMPARISON STUDY: 11/08/2024 FINDINGS: There is stable cardiomegaly without pulmonary vascular congestion. There are bilateral pleural effusions, moderate on the left and small on the right, stable. There is an interval large right pneumothorax. IMPRESSION: 1. Interval large right pneumothorax. 2. Stable bilateral pleural effusions, left greater than right. ACT 112: Negative or not required by law. Electronically signed by: Prince Atkins M.D. 12/13/2024 12:39 PM Chest X-Ray 12/13/24 13:04 XR chest 1V portable CLINICAL HISTORY: s/p RIGHT sided pigtail catheter placement COMPARISON STUDY: 12/13/2024 FINDINGS: There is an interval pigtail chest tube at the right base. There is a small residual right pneumothorax, improved. Stable opacity at the left base with obscuration of the left hemidiaphragm. Stable prominent cardiomegaly without pulmonary vascular congestion. IMPRESSION: Interval right chest tube with small residual right pneumothorax, improved. ACT 112: Negative or not required by law. Electronically signed by: Prince Atkins M.D. 12/13/2024 1:30 PM Discharge Plan Visit Data Chief Complaint: Shortness of Breath/Dyspnea Stated Complaint: TROUBLE BREATHING, TROUBLE WALKING/BENDING ED Provider: Farhad Henry Discharge Problem: Pneumothorax, CHF exacerbation, Pleural effusion Patient Disposition: Admitted As Inpatient Discharge Instructions Interventions: ED Discharge Assessment Last Done: 12/13/24 16:38 Discharge Problem: Pneumothorax Qualifiers: Pneumothorax type: other pneumothorax Qualified Code(s): J93.83 - Other pneumothorax
[2024-12-13 15:51] LABS: Appearance Urine Clear (Clear); Bilirubin Urine Negative (Negative); Blood Urine Negative (Negative); Color Urine Yellow; Glucose Urine UA Negative (Negative); Ketones Urine Negative (Negative); Leukocyte Esterase Urine Negative (Negative); Nitrite Urine Negative (Negative); Protein Urine Negative (Negative); Specific Gravity Urine 1.009 (1.000-1.030); Urobilinogen Urine Negative (Negative); pH Urine 5.5 (4.5-7.5)
[2024-12-13] MEDS ORDERED: ACETAMINOPHEN 325 MG TAB PO PRN (17:15)
[2024-12-13] MEDS: FUROSEMIDE 40 MG/4 ML VIAL IV SCH (18:07)
[2024-12-14 07:05] LABS: Basophils # (auto) 0.01 K/uL (0.00-0.20); Basophils % (auto) 0.2 %; Eosinophils # (auto) 0.04 K/uL (0.00-0.50); Eosinophils % (auto) 0.7 %; Hemoglobin 14.3 g/dl (14.0-18.0); Immature Granulocytes # (auto) 0.02 K/uL (0.01-0.20); Immature Granulocytes % (auto) 0.3 %; Lymphocytes # (auto) 0.33 K/uL (1.20-3.40); Lymphocytes % (auto) 5.7 %; Mean Corpuscular Hemoglobin 31.4 pg (25.0-34.0); Mean Corpuscular Hgb Conc 34.9 g/dL (32.0-36.0); Mean Corpuscular Volume 90.1 fL (80.0-100.0); Mean Platelet Volume 9.9 fL (9.4-12.4); Monocytes # (auto) 0.81 K/uL (0.11-0.59); Neutrophils # (auto) 4.57 K/uL (1.40-6.50); Neutrophils % (auto) 79.1 %; Platelet Count 137 K/uL (130-400); RDW Coefficient of Variation 16.1 % (11.5-14.5); RDW Standard Deviation 52.2 fL (36.4-46.3); Red Blood Count 4.55 M/uL (4.70-6.10); White Blood Count 5.78 K/ul (4.8-10.8)
--- NOTE | 2024-12-14 07:12 | Pulmonology Progress Note ---
Date of Service December 14, 2024 Assessment & Plan (1) (HFpEF) heart failure with preserved ejection fraction: (2) SOB (shortness of breath): (3) Pleural effusion: (4) Hydropneumothorax: (5) Atrial fibrillation: (6) Pulmonary hypertension: (7) Acute exacerbation of CHF (congestive heart failure): Plan Chest x-ray 12/13/2024 personally reviewed: Good inspiratory effort, large right- sided hydropneumothorax, left-sided pleural effusion, increased cardiac silhouette, no clear lung infiltrate appreciated 2D echo 10/31/2024: Moderate concentric LVH, EF> 70%, severe RA dilation, mildly dilated RV with normal function, PASP 65-70 mmHg, small pericardial effusion without signs of tamponade -- Spontaneous right-sided hydropneumothorax Patient did have hernia repair approximately a week ago for which she was intubated That could be an inciting event He did have chest discomfort and worsening shortness of breath. --Bilateral pleural effusion The underlying etiology is most likely patient's underlying HFpEF with pulmonary hypertension S/p thoracentesis 05/12/2022, 1700 serosanguineous fluid removed, transudative as per lights criteria Cytology negative for malignancy Pleural:LDH 99, protein 3.4, pH 7.52 Serum:LDH 179, total protein 7.4 -- Pulmonary hypertension Likely type II Plan as per cardiology and primary care 2D echo 10/31/2024: Moderate concentric LVH, EF> 70%, severe RA dilation, mildly dilated RV with normal function, PASP 65-70 mmHg, small pericardial effusion without signs of tamponade -- A. fib On warfarin Plan: Chest x-ray from today shows minimal right apical pneumothorax Patient also has a right basal pneumothorax which I think is partly because of pneumothorax ex-vacuo, given that patient has pleural effusion on the right side for almost 2 years. Chest tube level was at 950, there was no air leak. Continue with chest tube to suction. Will increase the suction to -40 Please note the above document was generated using voice recognition software. It may contain grammatical, syntax or spelling errors.Any formal questions or concerns about the content, text or information contained within the body of this dictation should be directly addressed to the provider for clarification. Admission and Anticipated Discharge Date Admission Date: December 13, 2024 Subjective Patient seen and examined at bedside. No acute distress, no adverse events overnight Saturating well on room air Denied any discomfort at the site of the chest tube Has been afebrile Fair appetite No nausea vomiting Review of Systems 2 Review of Systems: All systems reviewed & are unremarkable except as noted in Subjective Physical Exam 2 Physical Exam: Constitutional: No acute distress HEENT: EOMI, PERRLA Respiratory system: Decreased air entry bilaterally, no wheeze, no rhonchi, positive crackles bilaterally CVS: S1-S2 positive, no murmurs or gallops, distant heart sounds Abdomen: Soft, nontender, nondistended, positive bowel sounds x4 Extremities: +2 pulses bilaterally radialis/ dorsalis pedis, no cyanosis, +2 pitting edema bilateral lower extremity Neuro: Awake alert oriented x3 Psych: Normal mood and affect G/U: Positive Yoder Skin: no rashes, warm and dry Lymphatic: no cervical or axillary lymphadenopathy Results & Data Results & Data Vital Signs (Past 12 Hours) Vital Signs Temp Pulse Pulse Resp BP Pulse Ox O2 Del Method 12/14/24 03:37 36.7 C 82 16 98/61 L 97 Room Air 12/14/24 00:01 36.6 C 78 16 109/69 95 Room Air 12/13/24 21:49 85 12/13/24 20:15 36.5 C 75 18 106/65 95 Room Air 12/13/24 20:00 Room Air Laboratory Results 12/14/24 06:20 PG Care Time/CCT Total # of Minutes Spent Total Time Spent with Patient: Total time spent is greater than 50% in coordination of care (as documented) at patient's floor/unit and/or counseling patient: Coding Level of Care Code 64127 SUB INP/OBS CARE 3/50MIN Diagnoses (HFpEF) heart failure with preserved ejection fraction I50.30 SOB (shortness of breath) R06.02 Pleural effusion J90 Hydropneumothorax J94.8 Atrial fibrillation I48.91 Pulmonary hypertension I27.20 Acute exacerbation of CHF (congestive heart failure) I50.9
[2024-12-14 07:28] LABS: BUN Creatinine Ratio 29.9 (10-20); Calcium 9.3 mg/dl (8.6-10.3); Creatinine Clr Calc Pharmacy 26.7 ml/min; Potassium 4.2 mmol/L (3.5-5.1)
[2024-12-14 07:32] LABS: INR 2.9 (0.9-1.1); Prothrombin Time 28.3 Seconds (9.0-12.0)
--- NOTE | 2024-12-14 07:32 | Hospitalist Progress Note ---
Date of Service December 14, 2024 Assessment & Plan (1) (HFpEF) heart failure with preserved ejection fraction: (2) SOB (shortness of breath): (3) Pleural effusion: (4) Hydropneumothorax: (5) Atrial fibrillation: (6) Pulmonary hypertension: (7) Acute exacerbation of CHF (congestive heart failure): Plan Alex Lerner is an 89yo M with a PMHx of HFpEF (EF > 70%) and afib (on warfarin) who presented with progressive dyspnea, leg swelling, and JVD. Initial imaging revealed a spontaneous right-sided hydropneumothorax. #PTX - Pt w/ chest discomfort and worsening SOB, on arrival was non-hypoxic, non- tachypneic - CXR 12/13: minimal right apical pneumothorax + right basal pneumothorax (poss 2/2 normal ex-vacuo) - Continue serial CXR x 3 days, cont pulse ox - Could be triggered by recent intubation after hernia repair - Continue with chest tube to suction - Pulmonary consulted #CHF exacerbation - HFpEF c/b pulmonary HTN and chronic (at least 2y) b/l pleural effusions. Recent admission (10/30-11/02) for exacerbation - 2D echo 10/31/2024: Mod concentric LVH, EF > 70%, severe RA dilation, mildly dilated RV w/ normal function, PASP 65-70 mmHg, small pericardial effusion w/o signs of tamponade - BNP elevated at 932 (previously 686, on 11/08) - +3 pitting edema up to waist on admission; thigh-high TEDs on - Home med regimen - torsemide 80mg qAM, eplerenone 25mg BID, and Jardiance 10mg daily - Will start Lasix 40 IV BID17 & continue Jardiance - Daily standing weights; normal dry weight appears to be ~70kg - Strict I&O monitoring #Bilateral pleural effusion - Likely 2/2 patient's underlying HFpEF with pulmonary hypertension - Moderate b/l effusions seen on prior imaging - Has h/o thoracentesis (05/12/2022) 1700 serosanguineous fluid was removed Cytology negative for malignancy Transudative per Light's criteria (w pleural LDH 99, protein 3.4 & serum LDH 179, protein 7.4) #Pulmonary hypertension - Likely type II - Plan as per cardiology and primary care #Afib - In afib on arrival; cont. cardiac monitoring - Rate-controlled w/ metoprolol succinate 25mg qAM - Anticoag w/ warfarin 2.5-5mg Diet: Regular VTE ppx: cont warfarin Dispo: PCU tele Code: DNR/DNI Admission and Anticipated Discharge Date Admission Date: December 13, 2024 Supervising Physician Co-Signing Physician Notes I personally examined the patient and verified all almendarez points of history and exam, discussed case, and agree with decision making with Dr Gupta feeling well overall. no complaints. updated on current management/plan vitals noted nad heent nc at mmm chest tube in place, breathing unlabored on room air no accessory muscles good effort skin no rashes no pallor or icterus spontaneous pneumothorax - chest tube, suction, appreciate pulmonary management mild hyponatremia - appearing asymptomatic. follow anticoagulated otherwise as above Subjective Reports feeling well today, much improved from admission. Denies discomfort from the chest tube. No CP, SOB, n/v, abd pain. Eating breakfast w/o issue. Review of Systems 2 Review of Systems: As per HPI. Physical Exam 2 Physical Exam: Gen: NAD, resting comfortably in bed, [place] HEENT: NCAT, PERRL, MMM CV: RRR, no m/r/g, S1/S2 normal, 2+ pitting edema up to knees b/l Resp: Symmetrical chest rise, breathing non-labored, no wheezing rales rhonchi, chest tube in place Abd: Soft, NT/ND, +BS MSK: Full ROM, no gross deformities Skin: Warm, dry, pink, ecchymoses diffusely covering b/l UE Neuro: AOx3, CN II-XII grossly intact Results & Data Results & Data Vital Signs (Past 12 Hours) Vital Signs Temp Pulse Pulse Resp BP Pulse Ox O2 Del Method 12/14/24 03:37 36.7 C 82 16 98/61 L 97 Room Air 12/14/24 00:01 36.6 C 78 16 109/69 95 Room Air 12/13/24 21:49 85 12/13/24 20:15 36.5 C 75 18 106/65 95 Room Air 12/13/24 20:00 Room Air Laboratory Results 12/14/24 06:20 12/14/24 06:20 Resident Activity Tracking Resident Involvement: Resident Care Provided Care Provided: Adult Hospital Medicine
--- NOTE | 2024-12-14 07:52 | XRay Report ---
EXAM: XR chest 1V portable CLINICAL HISTORY: f/u TECHNIQUE: An X-ray image of the chest is obtained in 1 AP projection. COMPARISON: Prior study dated 11/08/2024 FINDINGS: Pulmonary Parenchyma: New inserted right chest tube seen located peripherally in the right lower hemithorax with related pneumothorax and minimal effusion. Left moderate pleural effusion with rising level. Bilateral prominent bronchoivascular markings and mark with diffuse radio-opaque reticulations, suggesting pulmonary congestion. No consolidation. Heart and Mediastinum: Apparent cardiomegaly. Bony Thorax: Bony thorax appears intact without fractures or deformities. Soft Tissues: Soft tissues overlying the chest wall are unremarkable. IMPRESSION: 1. New inserted right chest tube seen located peripherally in the right lower hemithorax with related pneumothorax and minimal effusion. Regressed right-sided effusion and atlectaic changes. 2. Left moderate pleural effusion with rising level (unchanged). 3. Bilateral prominent bronchoivascular markings and mark with diffuse radio-opaque reticulations, suggesting pulmonary congestion (unchanged). 4. Apparent cardiomegaly (unchanged). Electronically signed by Jameel Parikh 12-14-2024 07:51 AM
[2024-12-14] MEDS: EMPAGLIFLOZIN 10 MG TAB PO SCH (09:40)
[2024-12-14] MEDS: METOPROLOL SUCC 25MG EXT REL TAB PO SCH (09:40)
--- NOTE | 2024-12-14 13:22 | Billing Data ---
Date of Service December 14, 2024 Coding Level of Care Code 92922 SUB INP/OBS CARE
[2024-12-14] MEDS ORDERED: WARFARIN SOD 5 MG TAB PO SCH (16:00)
[2024-12-14] MEDS: POLYETHYLENE (MIRALAX) 17 GM PACK PO PRN (16:03)
[2024-12-14] MEDS: WARFARIN SOD 2.5 MG TAB PO SCH (16:03)
[2024-12-15 06:32] LABS: Hematocrit (blood only) 41.2 % (42.0-52.0); Hemoglobin 14.2 g/dl (14.0-18.0); Mean Corpuscular Hemoglobin 31.1 pg (25.0-34.0); Mean Corpuscular Hgb Conc 34.5 g/dL (32.0-36.0); Mean Corpuscular Volume 90.4 fL (80.0-100.0); Mean Platelet Volume 9.6 fL (9.4-12.4); Platelet Count 125 K/uL (130-400); RDW Coefficient of Variation 16.5 % (11.5-14.5); RDW Standard Deviation 53.7 fL (36.4-46.3); Red Blood Count 4.56 M/uL (4.70-6.10); White Blood Count 5.65 K/ul (4.8-10.8)
[2024-12-15 06:57] LABS: BUN Creatinine Ratio 30.3 (10-20); Creatinine Clr Calc Pharmacy 26.6 ml/min; Potassium 4.1 mmol/L (3.5-5.1)
--- NOTE | 2024-12-15 07:10 | Hospitalist Progress Note ---
Date of Service December 15, 2024 Assessment & Plan (1) (HFpEF) heart failure with preserved ejection fraction: (2) SOB (shortness of breath): (3) Pleural effusion: (4) Hydropneumothorax: (5) Atrial fibrillation: (6) Pulmonary hypertension: (7) Acute exacerbation of CHF (congestive heart failure): Plan Alex Lerner is an 89yo M with a PMHx of HFpEF (EF > 70%) and afib (on warfarin) who presented with progressive dyspnea, leg swelling, and JVD. Initial imaging revealed a spontaneous right-sided hydropneumothorax. #PTX - Pt w/ chest discomfort and worsening SOB, on arrival was non-hypoxic, non- tachypneic - CXR 12/13: minimal right apical pneumothorax + right basal pneumothorax (poss 2/2 normal ex-vacuo) - Continue serial CXR x 3 days, cont pulse ox - Could be triggered by recent intubation after hernia repair - Chest tube in place, now no suction, will be removed this PM after checking CXR - Pulm following #CHF exacerbation - HFpEF c/b pulmonary HTN and chronic (at least 2y) b/l pleural effusions. Recent admission (10/30-11/02) for exacerbation - 2D echo 10/31/2024: Mod concentric LVH, EF > 70%, severe RA dilation, mildly dilated RV w/ normal function, PASP 65-70 mmHg, small pericardial effusion w/o signs of tamponade - BNP elevated at 932 (previously 686, on 11/08) - +3 pitting edema up to waist on admission; pt could not tolerate TEDs; responsive to diuresis, now 2+ up to knees - Home med regimen - torsemide 80mg qAM, eplerenone 25mg BID, and Jardiance 10mg daily - Daily standing weights; normal dry weight appears to be ~70kg - Strict I&O monitoring; past 24h UO 1675 mL - Continue Lasix 40 IV BID17 & Jardiance - Pt previously followed by cards & seen at CHF clinic; rec appt there after discharge #Bilateral pleural effusion - Likely 2/2 patient's underlying HFpEF with pulmonary hypertension, R has increased somewhat since last CXR - Has h/o thoracentesis (05/12/2022) & chronic moderate b/l effusions, seen on prior imaging - Outpatient f/u with CHF clinic #Pulmonary hypertension - Likely type II - Plan as per cardiology and CHF tx as above - Outpatient f/u with CHF clinic #Afib - In afib on arrival; cont. cardiac monitoring - Rate-controlled w/ metoprolol succinate 25mg qAM - Anticoag w/ warfarin 2.5-5mg Diet: Regular VTE ppx: cont warfarin Dispo: PCU tele Code: DNR/DNI Admission and Anticipated Discharge Date Admission Date: December 13, 2024 Supervising Physician Co-Signing Physician Notes I personally examined the patient and verified all almendarez points of history and exam, discussed case, and agree with decision making with Dr Gupta feeling reasonablly well - very tired - noted him catching his breath some earlier in conversation - he agrees this happened but is wondering if it was overdoing it then/fatigue more than true dyspnea vitals noted nad heent nc at mmm chest tube in place, breathing unlabored on room air no accessory muscles good effort skin no rashes no pallor or icterus. diminished breath sounds base R but otherwise good air entry spontaneous pneumothorax - chest tube removed, appreciate pulmonary management mild hyponatremia - appearing asymptomatic. follow anticoagulated weakness/deconditioning - PT/OT rec rehab and he feels this would be a good option - as long as he's getting around well enough / has improved enough dyspnea that rehab is reasonable - then hopefully [facility] once bed available (?12/16) otherwise as above Subjective is also present in room. Both report pt is doing well, no CP or SOB, no new complaints. Review of Systems 2 Review of Systems: As per HPI. Physical Exam 2 Physical Exam: Gen: NAD, resting comfortably in bed, [place] HEENT: NCAT, PERRL, MMM CV: RRR, no m/r/g, S1/S2 normal, pitting edema still present up to knees b/l Resp: Symmetrical chest rise, breathing non-labored, no wheezing rales rhonchi, chest tube in place Abd: Soft, NT/ND, +BS Skin: Warm, dry, pink, ecchymoses diffusely covering b/l UE, no signs of infection or inflammation at chest tube insertion site Results & Data Results & Data Vital Signs (Past 12 Hours) Vital Signs Temp Pulse Pulse Resp BP Pulse Ox O2 Del Method 12/15/24 03:42 90 12/15/24 02:37 36.7 C 92 H 18 101/62 96 Room Air 12/14/24 22:22 36.5 C 92 H 20 100/62 98 Room Air 12/14/24 19:29 36.6 C 113 H 20 107/59 L 96 Room Air Laboratory Results 12/15/24 05:18 12/15/24 05:18 Resident Activity Tracking Resident Involvement: Resident Care Provided Care Provided: Adult Hospital Medicine
--- NOTE | 2024-12-15 07:55 | XRay Report ---
EXAM: XR chest 1V portable CLINICAL HISTORY: F/u study. TECHNIQUE: An X-ray image of the chest is obtained in AP projection. COMPARISON: 12/14/2024 CR. FINDINGS: Pulmonary Parenchyma: Mild right pleural effusion obscuring the right costophrenic recess. Chest tube seen in the right lower hemithorax, in situ. Small pneumothorax seen. Small atelectatic band seen traversing into the right mid zone. Moderate pleural effusion obscuring the left costophrenic recess. Bilateral prominent bronchovascular/interstitial markings. Heart and Mediastinum: Cardiomegaly. No mediastinal widening or masses. No hilar or mediastinal lymphadenopathy. Bony Thorax: Bony thorax appears intact without fractures or deformities. Soft Tissues: Soft tissues overlying the chest wall are unremarkable. IMPRESSION: 1. Interval stable, right chest tube seen in the right lower hemithorax with small pneumothorax and mild pleural effusion showing rising level. 2. Interval stable, moderate left pleural effusion. 3. Interval stable, cardiomegaly. 4. Comparing the previous x-ray dated 12/14/2024, there is a mild increase in right pleural effusion; otherwise, findings are rather stable. Electronically signed by Jameel Parikh 12-15-2024 07:54 AM
--- NOTE | 2024-12-15 08:06 | Pulmonology Progress Note ---
Date of Service December 15, 2024 Assessment & Plan (1) (HFpEF) heart failure with preserved ejection fraction: (2) SOB (shortness of breath): (3) Pleural effusion: (4) Hydropneumothorax: (5) Atrial fibrillation: (6) Pulmonary hypertension: (7) Acute exacerbation of CHF (congestive heart failure): (8) Pneumothorax ex vacuo: Plan Chest x-ray 12/13/2024 personally reviewed: Good inspiratory effort, large right- sided hydropneumothorax, left-sided pleural effusion, increased cardiac silhouette, no clear lung infiltrate appreciated 2D echo 10/31/2024: Moderate concentric LVH, EF> 70%, severe RA dilation, mildly dilated RV with normal function, PASP 65-70 mmHg, small pericardial effusion without signs of tamponade -- Spontaneous right-sided hydropneumothorax Patient did have hernia repair approximately a week ago for which she was intubated That could be an inciting event He did have chest discomfort and worsening shortness of breath. --Bilateral pleural effusion The underlying etiology is most likely patient's underlying HFpEF with pulmonary hypertension S/p thoracentesis 05/12/2022, 1700 serosanguineous fluid removed, transudative as per lights criteria Cytology negative for malignancy Pleural:LDH 99, protein 3.4, pH 7.52 Serum:LDH 179, total protein 7.4 -- Pulmonary hypertension Likely type II Plan as per cardiology and primary care 2D echo 10/31/2024: Moderate concentric LVH, EF> 70%, severe RA dilation, mildly dilated RV with normal function, PASP 65-70 mmHg, small pericardial effusion without signs of tamponade -- A. fib On warfarin Plan: In/out: -1.6 L, -2.5 L since coming to the hospital Chest x-ray from today does not show any significant change from yesterday, right apical small pneumothorax as well as right basal pneumothorax persists. There is increase in the right-sided pleural effusion. Right basal pneumothorax which I think is partly because of pneumothorax ex- vacuo, given that patient has pleural effusion on the right side for almost 2 years. Chest tube has been clamped around 7:15 AM, will repeat a chest x-ray at noon. If there is no significant change/increase in size of pneumothorax then we will discontinue the chest tube Please make note patient is very high risk of reaccumulation of fluid on the right side. Would continue with aggressive diuresis which she is getting while in the hospital. Needs follow-up with heart failure clinic as well as nephrology as an outpatient to optimize his diuretics Case was discussed with RN as well as primary team Please note the above document was generated using voice recognition software. It may contain grammatical, syntax or spelling errors.Any formal questions or concerns about the content, text or information contained within the body of this dictation should be directly addressed to the provider for clarification. Admission and Anticipated Discharge Date Admission Date: December 13, 2024 Subjective Patient seen and examined at bedside. No acute distress, no adverse events overnight Patient's was in the room at the time of examination He was saturating well on room air Denied any chest discomfort at the site of the chest tube No nausea or vomiting He has been diuresing well Has been afebrile Chest tube was clamped at the time of examination Review of Systems 2 Review of Systems: All systems reviewed & are unremarkable except as noted in Subjective Physical Exam 2 Physical Exam: Constitutional: No acute distress HEENT: EOMI, PERRLA, no subcu emphysema Respiratory system: Decreased air entry bilaterally, no wheeze, no rhonchi, positive crackles bilaterally CVS: S1-S2 positive, no murmurs or gallops, distant heart sounds Abdomen: Soft, nontender, nondistended, positive bowel sounds x4 Extremities: +2 pulses bilaterally radialis/ dorsalis pedis, no cyanosis, +2 pitting edema bilateral lower extremity Neuro: Awake alert oriented x3 Psych: Normal mood and affect G/U: Positive Yoder Skin: no rashes, warm and dry Lymphatic: no cervical or axillary lymphadenopathy Results & Data Results & Data Vital Signs (Past 12 Hours) Vital Signs Temp Pulse Pulse Resp BP Pulse Ox O2 Del Method 12/15/24 07:32 36.5 C 102 H 19 114/67 96 Room Air 12/15/24 07:29 Room Air 12/15/24 03:42 90 12/15/24 02:37 36.7 C 92 H 18 101/62 96 Room Air 12/14/24 22:22 36.5 C 92 H 20 100/62 98 Room Air Laboratory Results 12/15/24 05:18 12/15/24 05:18 PG Care Time/CCT Total # of Minutes Spent Total Time Spent with Patient: Total time spent is greater than 50% in coordination of care (as documented) at patient's floor/unit and/or counseling patient: Coding Level of Care Code 18719 SUB INP/OBS CARE 2MIN Diagnoses (HFpEF) heart failure with preserved ejection fraction I50.30 SOB (shortness of breath) R06.02 Pleural effusion J90 Hydropneumothorax J94.8 Atrial fibrillation I48.91 Pulmonary hypertension I27.20 Acute exacerbation of CHF (congestive heart failure) I50.9 Pneumothorax ex vacuo J93.83
--- NOTE | 2024-12-15 11:35 | XRay Report ---
XR chest 1V portable CLINICAL HISTORY: f/u COMPARISON STUDY: 12/15/2024 FINDINGS: Stable chest tube at the right base. Small right apical pneumothorax is stable. Stable smal l bilateral pleural effusions and associated consolidation in the lung bases. IMPRESSION: Stable exam. ACT 112: Negative or not required by law. Electronically signed by: Prince Atkins M.D. 12/15/2024 11:34 AM
--- NOTE | 2024-12-15 11:52 | Procedure Note ---
Procedure Note Date of Service December 15, 2024 Procedure: Pigtail chest tube removal Circuit Designer: Dr. Yessi Gramajo Indication: Improvement in pneumothorax Consent: Verbal consent was obtained from the patient as well as prior to the procedure Anesthesia: None Procedure: Under sterile and aseptic measures the dressing of the pigtail catheter was removed The catheter was removed on exhalation. It was found to be intact Vaseline gauze was applied followed by 4 x 4 and Medipore tape was used to dress it Complications: None Blood loss: None Recommendations: Would recommend a repeat chest x-ray in 5-7 days. Please make note patient will have small pneumothorax especially in the right basal area as I do think she has pneumothorax ex vacuo The space will be taken out by pleural fluid. Please note the above document was generated using voice recognition software. It may contain grammatical, syntax or spelling errors.Any formal questions or concerns about the content, text or information contained within the body of this dictation should be directly addressed to the provider for clarification. [facility] [place] (Charges) Pulmonary/Thoracic Procedure 1: Pulmonary and Thoracic: 32707 Remove lung catheter Coding CPT Codes Pulmonary/Thoracic - Pulmonary and Thoracic: 64300 Remove lung catheter ([id number]) Additional Codes Date of Service (PG.SURGERY)
[2024-12-15] MEDS: WARFARIN SOD 5 MG TAB PO SCH (15:57)
--- NOTE | 2024-12-15 16:00 | XRay Report ---
XR chest 2V PA/lateral CLINICAL HISTORY: PTX COMPARISON STUDY: 12/15/2024 FINDINGS: The prior right base chest tube is no longer seen. There is a small right pneumothorax with 1.5 cm pleural separation at the right apex and mild pleural separation at the lateral right lung ba se, minimally increased in size. There are stable bilateral pleural effusions and associated lung bas e consolidation. Stable cardiomegaly with mild pulmonary vascular congestion. IMPRESSION: Small right pneumothorax, minimally increased in size. ACT 112: Negative or not required by law. Electronically signed by: Prince Atkins M.D. 12/15/2024 3:59 PM
--- NOTE | 2024-12-15 17:40 | Billing Data ---
Date of Service December 15, 2024 Coding Level of Care Code 00893 SUB INP/OBS CARE
[2024-12-16 06:43] LABS: Hematocrit (blood only) 40.6 % (42.0-52.0); Hemoglobin 13.9 g/dl (14.0-18.0); Mean Corpuscular Hemoglobin 31.4 pg (25.0-34.0); Mean Corpuscular Hgb Conc 34.2 g/dL (32.0-36.0); Mean Corpuscular Volume 91.6 fL (80.0-100.0); Mean Platelet Volume 9.6 fL (9.4-12.4); Platelet Count 136 K/uL (130-400); RDW Coefficient of Variation 16.5 % (11.5-14.5); RDW Standard Deviation 54.8 fL (36.4-46.3); Red Blood Count 4.43 M/uL (4.70-6.10); White Blood Count 5.93 K/ul (4.8-10.8)
[2024-12-16 06:52] LABS: BUN Creatinine Ratio 28.6 (10-20); Calcium 8.8 mg/dl (8.6-10.3); Potassium 3.9 mmol/L (3.5-5.1)
--- NOTE | 2024-12-16 06:54 | Hospitalist Progress Note ---
Date of Service December 16, 2024 Assessment & Plan (1) (HFpEF) heart failure with preserved ejection fraction: (2) SOB (shortness of breath): (3) Pleural effusion: (4) Hydropneumothorax: (5) Atrial fibrillation: (6) Pulmonary hypertension: (7) Acute exacerbation of CHF (congestive heart failure): Plan Alex Lerner is an 89yo M with a PMHx of HFpEF (EF > 70%) and afib (on warfarin) who presented with progressive dyspnea, leg swelling, and JVD. Initial imaging revealed a spontaneous right-sided hydropneumothorax. #PTX - Pt w/ chest discomfort and worsening SOB, on arrival was non-hypoxic, non- tachypneic - CXR 12/13: minimal right apical pneumothorax + right basal pneumothorax (poss 2/2 normal ex-vacuo) - Continue serial CXR x 3 days, cont pulse ox - Could be triggered by recent intubation after hernia repair - Chest tube in place, now no suction, will be removed this PM after checking CXR - Pulm following #CHF exacerbation - HFpEF c/b pulmonary HTN and chronic (at least 2y) b/l pleural effusions. Recent admission (10/30-11/02) for exacerbation - 2D echo 10/31/2024: Mod concentric LVH, EF > 70%, severe RA dilation, mildly dilated RV w/ normal function, PASP 65-70 mmHg, small pericardial effusion w/o signs of tamponade - BNP elevated at 932 (previously 686, on 11/08) - +3 pitting edema up to waist on admission; pt could not tolerate TEDs; responsive to diuresis, now 2+ up to knees - Home med regimen - torsemide 80mg qAM, eplerenone 25mg BID, and Jardiance 10mg daily - Daily standing weights; normal dry weight appears to be ~70kg - Strict I&O monitoring; past 24h UO 1675 mL - Continue Lasix 40 IV BID17 & Jardiance - Pt previously followed by cards & seen at CHF clinic; rec appt there after discharge #Bilateral pleural effusion - Likely 2/2 patient's underlying HFpEF with pulmonary hypertension, R has increased somewhat since last CXR - Has h/o thoracentesis (05/12/2022) & chronic moderate b/l effusions, seen on prior imaging - Outpatient f/u with CHF clinic #Pulmonary hypertension - Likely type II - Plan as per cardiology and CHF tx as above - Outpatient f/u with CHF clinic #Afib - In afib on arrival; cont. cardiac monitoring - Rate-controlled w/ metoprolol succinate 25mg qAM - Anticoag w/ warfarin 2.5-5mg Diet: Regular VTE ppx: cont warfarin Dispo: PCU tele Code: DNR/DNI Admission and Anticipated Discharge Date Admission Date: December 13, 2024 Review of Systems Review of Systems: As per HPI. Physical Exam Physical Exam: Gen: NAD, resting comfortably in bed, [place] HEENT: NCAT, PERRL, MMM CV: RRR, no m/r/g, S1/S2 normal, pitting edema still present up to knees b/l Resp: Symmetrical chest rise, breathing non-labored, no wheezing rales rhonchi, chest tube in place Abd: Soft, NT/ND, +BS Skin: Warm, dry, pink, ecchymoses diffusely covering b/l UE, no signs of infection or inflammation at chest tube insertion site Results & Data Results & Data Vital Signs (Past 12 Hours) Vital Signs Temp Pulse Resp BP Pulse Ox O2 Del Method 12/16/24 03:26 36.9 C 90 20 110/76 95 Room Air 12/15/24 22:31 36.4 C L 99 H 18 104/65 96 Room Air 12/15/24 19:17 36.6 C 116 H 18 112/74 94 Room Air
--- NOTE | 2024-12-16 07:41 | XRay Report ---
EXAM: XR chest 1V portable CLINICAL HISTORY: F/u study. TECHNIQUE: X-ray image of the chest is obtained in AP projection. COMPARISON: CR 12/15/2024. FINDINGS: Pulmonary Parenchyma: Right side mild pleural effusion noted. stable Moderate left side pleural effusion noted. Stable Bilateral lower lung lobe opacities noted may refer to pulmonary edema / early infiltration. Stable Novisualized right chest tube, likely removed. A right lower lung zone radiolucent area is still noted. Heart and Mediastinum: The heart is enalrged in size. stable No mediastinal widening or masses. No hilar or mediastinal lymphadenopathy. Bony Thorax: The bony thorax appears intact without fractures or deformities. Soft Tissues: Soft tissues overlying the chest wall are unremarkable. IMPRESSION: 1. Interval stable right mild pleural effusion. 2. Interval stable left moderate pleural effusion. 3. Novisualized right chest tube, likely removed. 4. Interval stable cardiomegaly with signs of pulmonary edema. 5. A right lower lung zone radiolucent area is still noted. CT scan of the chest is advised if clinically indicated. Electronically signed by Jameel Parikh 12-16-2024 07:40 AM
[2024-12-16 07:45] VITALS: RESP 18
--- NOTE | 2024-12-16 10:38 | Pulmonology Progress Note ---
Date of Service December 16, 2024 Assessment & Plan (1) (HFpEF) heart failure with preserved ejection fraction: (2) SOB (shortness of breath): (3) Pleural effusion: (4) Hydropneumothorax: (5) Atrial fibrillation: (6) Pulmonary hypertension: (7) Acute exacerbation of CHF (congestive heart failure): (8) Pneumothorax ex vacuo: Plan Chest x-ray 12/13/2024 personally reviewed: Good inspiratory effort, large right- sided hydropneumothorax, left-sided pleural effusion, increased cardiac silhouette, no clear lung infiltrate appreciated 2D echo 10/31/2024: Moderate concentric LVH, EF> 70%, severe RA dilation, mildly dilated RV with normal function, PASP 65-70 mmHg, small pericardial effusion without signs of tamponade -- Spontaneous right-sided hydropneumothorax Patient did have hernia repair approximately a week ago for which she was intubated That could be an inciting event He did have chest discomfort and worsening shortness of breath. Chest tube placed 12/13/2024 S/p chest tube removal 12/15/2024 --Bilateral pleural effusion The underlying etiology is most likely patient's underlying HFpEF with pulmonary hypertension S/p thoracentesis 05/12/2022, 1700 serosanguineous fluid removed, transudative as per lights criteria Cytology negative for malignancy Pleural:LDH 99, protein 3.4, pH 7.52 Serum:LDH 179, total protein 7.4 -- Pulmonary hypertension Likely type II Plan as per cardiology and primary care 2D echo 10/31/2024: Moderate concentric LVH, EF> 70%, severe RA dilation, mildly dilated RV with normal function, PASP 65-70 mmHg, small pericardial effusion without signs of tamponade -- A. fib On warfarin Plan: In/out: -1.4 L, -3.9 L since coming to the hospital Chest x-ray today still shows small right-sided apical pneumothorax, not significantly changed in size There is increase in right-sided pleural effusion Needs follow-up with heart failure clinic as well as nephrology as an outpatient to optimize his diuretics Case was discussed with RN No further recommendation from pulmonary perspective, will sign off Please call directly with any questions Please note the above document was generated using voice recognition software. It may contain grammatical, syntax or spelling errors.Any formal questions or concerns about the content, text or information contained within the body of this dictation should be directly addressed to the provider for clarification. Admission and Anticipated Discharge Date Admission Date: December 13, 2024 Subjective Patient seen and examined at bedside. No acute distress, no adverse events overnight Denies any chest pain, shortness of breath is improved Fair appetite, no nausea vomiting Denies any headache or blurry vision Patient's was also in the room at the time of examination He has been diuresing well Review of Systems 2 Review of Systems: All systems reviewed & are unremarkable except as noted in Subjective Physical Exam 2 Physical Exam: Constitutional: No acute distress HEENT: EOMI, PERRLA, no subcu emphysema Respiratory system: Decreased air entry bilaterally, no wheeze, no rhonchi, positive crackles bilaterally CVS: S1-S2 positive, no murmurs or gallops, distant heart sounds Abdomen: Soft, nontender, nondistended, positive bowel sounds x4 Extremities: +2 pulses bilaterally radialis/ dorsalis pedis, no cyanosis, +2 pitting edema bilateral lower extremity Neuro: Awake alert oriented x3 Psych: Normal mood and affect G/U: Positive Yoder Skin: no rashes, warm and dry Lymphatic: no cervical or axillary lymphadenopathy Results & Data Results & Data Vital Signs (Past 12 Hours) Vital Signs Temp Pulse Pulse Pulse Resp BP Pulse Ox 12/16/24 10:10 90 12/16/24 09:30 12/16/24 07:44 36.4 C L 103 H 18 109/61 95 12/16/24 03:26 36.9 C 90 20 110/76 95 O2 Del Method 12/16/24 10:10 12/16/24 09:30 Room Air 12/16/24 07:44 Room Air 12/16/24 03:26 Room Air Laboratory Results 12/16/24 05:33 12/16/24 05:33 PG Care Time/CCT Total # of Minutes Spent Total Time Spent with Patient: Total time spent is greater than 50% in coordination of care (as documented) at patient's floor/unit and/or counseling patient: Coding Level of Care Code 65767 SUB INP/OBS CARE 2/35MIN Diagnoses (HFpEF) heart failure with preserved ejection fraction I50.30 SOB (shortness of breath) R06.02 Pleural effusion J90 Hydropneumothorax J94.8 Atrial fibrillation I48.91 Pulmonary hypertension I27.20 Acute exacerbation of CHF (congestive heart failure) I50.9 Pneumothorax ex vacuo J93.83
--- NOTE | 2024-12-16 11:05 | Discharge Summary ---
Date of Service December 16, 2024 Admission HPI Per Admitting Provider Alex is an 89-year-old male with PMH of atrial fibrillation (on warfarin), HFpEF, pulmonary hypertension, and polyneuropathy. He presented on 12/13 for SOB/dyspnea. Per , the patient was having a "terrible night" last night. He got up multiple times to use the bathroom, but required his 's help to walk as he was having difficulty breathing when he walked. When he finally got to sleep, noted that he was "gasping for breath" while taking a nap. Patient endorses both SOB at rest and with exertion. This has been an ongoing problem over the past several months due to his CHF, but he does report an acute exacerbation last night. Patient recently had hernia surgery/repair on 12/05. He was discharged on oxycodone, but reports he is only required 2 tablets; has used Tylenol for pain. He does not use supplemental oxygen at home or CPAP at night. Patient took all of his regular morning medicines today except for his eplerenone. He is set to take his warfarin 5 mg this evening, which he takes for atrial fibrillation. Additionally, he reports that he has had increased swelling in his legs over the past several days. No history of DVT/PE to his knowledge. Patient ambulates with a cane at baseline. He reports he is still producing urine. He denies smoking, tobacco use, recent alcohol use. Patient's vitals are stable at time admission. ED course: ROS: Patient endorses SOB at rest and with exertion, mild pleuritic CP on the right side, nausea (attributes to medications), constipation, and swelling in the legs bilaterally. Patient denies fever, chills, night-sweats, chest pain, chest palpitation, cough, hemoptysis, abdominal pain, vomiting, diarrhea, burning with urination, or blood in the urine/stool. Admission Exam Per Admitting Provider General: no acute distress; at bedside; non-toxic appearing; frail appearing; cooperative; SpO2 95% on RA HEENT: normocephalic, atraumatic; no scleral icterus; PERRLA; vision intact; hard of hearing Neck: supple; no lymphadenopathy; trachea midline Skin: warm, dry without signs of tenting; no cyanosis; no rashes, bruising, lesions, or erythema noted CV: chest tube in place draining serosanguineous fluid into Pleur-evac; mildly TTP around chest tube site; irregularly irregular rhythm; S1/S2 normal; no murmurs/rubs/gallops; pulses intact and symmetric at radial, DP, and PT Lungs: no acute respiratory distress; symmetrical chest wall expansion; clear breath sounds across all lung ritter w/o adventitious sounds; no wheezing ABD: Soft, NTP; right inguinal hernia scar noted without signs of infection or drainage; BS present; no rebound/guarding; no distention MSK: no tics or fasciculations; 3+ pitting edema extending from the dorsal aspect of the feet bilaterally up into the hips, mildly erythematous Neuro: A&Ox3; normal mood and affect; fluent speech; no focal deficits; sensation intact and symmetric in the lower extremity bilaterally Principal Diagnosis pneumothorax Discharge Exam Gen: NAD, resting comfortably in bed, [place] HEENT: NCAT, PERRL, MMM CV: RRR, no m/r/g, S1/S2 normal, 2+ pitting edema b/l LE Resp: Symmetrical chest rise, breathing non-labored, no wheezing rales rhonchi Abd: Soft, NT/ND, +BS Skin: Warm, dry, pink, ecchymoses diffusely covering b/l UE, no signs of infection or inflammation at chest tube insertion site Discharge Data Allergies Allergy/AdvReac Type Severity Reaction Status Date / Time suture glue Allergy Intermediate Rash Uncoded 12/05/24 05:36 Consultations 12/13/24 13:54 ED Decision to Admit Stat 12/13/24 14:30 Consult Pulmonology Routine Procedures Performed Pigtail chest tube insertion & removal Ordered Studies 12/16/24 05:33 12/16/24 05:33 12/13/24 12:35 US point of care ultrasound Urgent Hospital Course (1) (HFpEF) heart failure with preserved ejection fraction: (2) SOB (shortness of breath): (3) Pleural effusion: (4) Hydropneumothorax: (5) Atrial fibrillation: (6) Pulmonary hypertension: (7) Acute exacerbation of CHF (congestive heart failure): Subha Lerner is an 89yo M with a PMHx of HFpEF (EF > 70%) and afib (on warfarin) who presented with progressive dyspnea, leg swelling, and JVD. Initial imaging revealed a spontaneous right-sided hydropneumothorax. #PTX - Pt w/ chest discomfort and worsening SOB, on arrival was non-hypoxic, non- tachypneic - CXR 12/13: minimal right apical pneumothorax + right basal pneumothorax (Per pulm, poss 2/2 normal ex-vacuo; could be triggered by recent intubation after hernia repair) - Pulm following. Chest tube placed 12/13 and removed on 12/15, both w/o complications. Advised that pt is very high risk for reaccumulating fluid on the right side & should have aggressive diuresis - Final CXR prior to discharge still showing R apical pneumothorax, slightly increased f/ prev study #CHF exacerbation - HFpEF c/b pulmonary HTN and chronic (at least 2y) b/l pleural effusions. Recent admission (10/30-11/02) for exacerbation - 2D echo 10/31/2024: Mod concentric LVH, EF > 70%, severe RA dilation, mildly dilated RV w/ normal function, PASP 65-70 mmHg, small pericardial effusion w/o signs of tamponade - BNP elevated at 932 (previously 686, on 11/08) - +3 pitting edema up to waist on admission; responded favorably to diuresis, pt could not tolerate TEDs - Home med regimen - torsemide 80mg qAM, eplerenone 25mg BID, and Jardiance 10mg daily; resume after discharge - During hospitalization, given Lasix 40 IV BID17, and Jardiance was continued - Daily standing weights were obtained; normal dry weight appears to be ~70kg & weight on day of discharge is 73.6 - Strict I&O monitoring; showed total UO of 4525 mL during this admission - Pt previously followed by cards & seen at CHF clinic; rec appt there after discharge. #Bilateral pleural effusion #Pulmonary hypertension - Likely 2/2 underlying HFpEF, Type II PAH - Has h/o thoracentesis (05/12/2022) & chronic moderate b/l effusions, seen on prior imaging - Final CXR prior to discharge (12/16 AM) showed stable b/l pleural effusions & associated lung base consolidation - Rec outpatient f/u with CHF clinic #Afib - In afib on arrival; cont. cardiac monitoring - Rate-controlled w/ metoprolol succinate 25mg qAM - Anticoag w/ warfarin 2.5-5mg Diet: Regular Code: DNR/DNI Total Time Total Time Spent Total Time Spent (In Minutes): <30 Discharge Plan Discharge Items Patient Disposition: Transfer Inpatient Rehab Fac Reason For Visit: RIGHT-SIDED PNEUMOTHORAX Discharge Diagnosis: pneumothorax Activity: Per Instructions section Non-emergency contact: Primary Care Provider and Director Of Group Sales Call non-emergency contact if: you have any medication questions, your symptoms worsen, your pain is not controlled and you have a fever Follow-up/Referrals: Kellee Freeman MD [Primary Care Provider] - Diet: Regular Addtl Attending Provider Instructions: Alex Lerner is an 89yo M with a PMHx of HFpEF (EF > 70%) and afib (on warfarin) who presented with progressive dyspnea, leg swelling, and JVD. Initial imaging revealed a spontaneous right-sided hydropneumothorax. #PTX - Pt w/ chest discomfort and worsening SOB, on arrival was non-hypoxic, non- tachypneic - CXR 12/13: minimal right apical pneumothorax + right basal pneumothorax (Per pulm, poss 2/2 normal ex-vacuo; could be triggered by recent intubation after hernia repair) - Pulm following. Chest tube placed 12/13 and removed on 12/15, both w/o complications. Advised that pt is very high risk for reaccumulating fluid on the right side & should have aggressive diuresis - Final CXR prior to discharge still showing R apical pneumothorax, slightly increased f/ prev study #CHF exacerbation - HFpEF c/b pulmonary HTN and chronic (at least 2y) b/l pleural effusions. Recent admission (10/30-11/02) for exacerbation - 2D echo 10/31/2024: Mod concentric LVH, EF > 70%, severe RA dilation, mildly dilated RV w/ normal function, PASP 65-70 mmHg, small pericardial effusion w/o signs of tamponade - BNP elevated at 932 (previously 686, on 11/08) - +3 pitting edema up to waist on admission; responded favorably to diuresis, pt could not tolerate TEDs - Home med regimen - torsemide 80mg qAM, eplerenone 25mg BID, and Jardiance 10mg daily; resume after discharge - During hospitalization, given Lasix 40 IV BID17, and Jardiance was continued - Daily standing weights were obtained; normal dry weight appears to be ~70kg & weight on day of discharge is 73.6 - Strict I&O monitoring; showed total UO of 4525 mL during this admission - Pt previously followed by cards & seen at CHF clinic; rec appt there after discharge. #Bilateral pleural effusion #Pulmonary hypertension - Likely 2/2 underlying HFpEF, Type II PAH - Has h/o thoracentesis (05/12/2022) & chronic moderate b/l effusions, seen on prior imaging - Final CXR prior to discharge (12/16 AM) showed stable b/l pleural effusions & associated lung base consolidation - Rec outpatient f/u with CHF clinic #Afib - In afib on arrival; cont. cardiac monitoring - Rate-controlled w/ metoprolol succinate 25mg qAM - Anticoag w/ warfarin 2.5-5mg Diet: Regular Code: DNR/DNI Pending Studies at Discharge: No Stand-Alone Forms: My [facility] Skilled Items Patient informed of condition?: Yes DNR: Yes Discharge Level of Care: Acute rehab Communicable Disease: No Discharge Prognosis: Stable Lines: None Urinary Catheter: No Medications and DC Order Prescriptions: Continued torsemide 20 mg tablet 80 mg PO QAM Qty: 60 5RF cholecalciferol (vitamin D3) 25 mcg (1,000 unit) capsule 25 mcg PO DAILY Jardiance 10 mg tablet 10 mg PO DAILY Qty: 30 2RF Patient Comments: "Has not started - >$500" as per patients metoprolol succinate 25 mg tablet extended release 24 hr 25 mg PO QAM eplerenone [Inspra] 25 mg tablet 25 mg PO BID oxycodone 5 mg tablet 5 - 10 mg PO .[id number] MDD no more than 6 tabs in 24hours PRN (Reason: pain) Qty: 15 0RF warfarin 5 mg tablet 2.5 - 5 mg PO UD Patient Comments: "stopped this 11/30/24 for upcoming procedure 12/05/24" as per patients Rx Instructions: 5mg q Wednesday, Wednesday, Wednesday and, 2.5mg x [address] [facility] orally use as directed; Discharge Orders: Discharge Order (Routine); Ordered 12/16/24 Ordered By: Todd Whittaker/Other Patient Handouts: Warfarin Oral Tablet, Anticoagulants Admission Data Admit Date/Time: 12/13/24 14:25 Attending Provider: Juan Schulz Admit Provider: Lambert Vernon Primary Care Provider: Kellee Freeman Other Providers: Lambert Vernon; Yessi Gramajo; [facility] Other Interventions: Discharge Summary Assessment (RN) Last Done: 12/16/24 11:50 Supervising Physician Co-Signing Physician Notes I personally examined the patient and verified all almendarez points of history and exam, discussed case, and agree with decision making with Dr Gupta feels ok today, feels up to going to rehab. pleased with progress vitals noted nad heent nc at mmm breathing unlabored on room air no accessory muscles good effort skin no rashes no pallor or icterus. spontaneous pneumothorax - chest tube removed, CXR acceptable, appreciate pulmonary management, outpt pulmonary f/u for this and effusion mild hyponatremia - appearing asymptomatic. follow anticoagulated weakness/deconditioning - for rehab today otherwise as above Resident Activity Tracking Resident Involvement: Resident Care Provided Care Provided: Adult Hospital Medicine
[2024-12-16 11:13] VITALS: BP 100/64; TEMP 97.3; O2SAT 97
[2024-12-16 11:52] VITALS: PULSE 90
--- NOTE | 2024-12-16 15:41 | Billing Data ---
Date of Service December 16, 2024 Coding Level of Care Code 64181 IN/OBS DISCH 30 MIN/LESS
== END 2024-12-16 13:24 | DRG 199 ==
LOC: ED 11:24 → 4W 14:25 → SUATTDRO 14:25 → 4W 16:38

== ENCOUNTER 2025-04-09 12:19 | Inpatient (IN) ==
[2025-04-09 13:24] LABS: Hematocrit (blood only) 42.2 % (42.0-52.0); Hemoglobin 15.1 g/dl (14.0-18.0); Immature Granulocytes # (auto) 0.02 K/uL (0.01-0.20); Immature Granulocytes % (auto) 0.4 %; Mean Corpuscular Hemoglobin 32.5 pg (25.0-34.0); Mean Corpuscular Volume 90.9 fL (80.0-100.0); Platelet Count 156 K/uL (130-400); RDW Standard Deviation 50.6 fL (36.4-46.3); Red Blood Count 4.64 M/uL (4.70-6.10); White Blood Count 4.73 K/ul (4.8-10.8)
--- NOTE | 2025-04-09 13:25 | XRay Report ---
XR chest 1V portable CLINICAL HISTORY: Chest pain, nonspecific COMPARISON STUDY: 01/04/2025 FINDINGS: Stable prominent cardiomegaly with increased pulmonary vascular congestion. There are small bilateral pleural effusions and associated lung base consolidation. No pneumothorax. IMPRESSION: CHF with pleural effusions and lung base consolidation. ACT 112: Negative or not required by law. Electronically signed by: Prince Atkins M.D. 04/09/2025 1:23 PM
[2025-04-09 13:37] LABS: Alanine Aminotransferase 17 U/L (7-52); Albumin Globulin Ratio 0.9 (0.9-2); Alkaline Phosphatase 111 U/L (34-104); Anion Gap 7 (3-11); Bilirubin,Total 2.5 mg/dl (0.2-1.0); Blood Urea Nitrogen 32 mg/dl (6-23); Calcium 9.1 mg/dl (8.6-10.3); Carbon Dioxide 34 mmol/L (21-32); Chloride 89 mmol/L (98-107); Globulin 4.1 gm/dl (2.5-4.0); Glucose 120 mg/dl (70-99(Fasting)); Lipase 30 U/L (11-82); Magnesium 2.3 mg/dl (1.7-2.4); Potassium 3.9 mmol/L (3.5-5.1); Sodium 130 mmol/L (136-145); Total Protein 7.9 gm/dl (6.0-8.3)
[2025-04-09 13:50] LABS: Thyroid Stimulating Hormone 4.225 uIu/ml (0.300-4.500)
--- NOTE | 2025-04-09 13:51 | Emergency Department Note ---
Impression & Plan Acute on chronic diastolic CHF (congestive heart failure), Pleural effusion, Chronic atrial fibrillation, Anticoagulated on Coumadin, Bilateral leg edema, Scrotal edema ED Provider Note NAME: CORINA GARCIA AGE: 89 SEX: M : 1935 ARRIVES VIA: Walk-In INFORMANT: Patient ED PROVIDER(S): Fran Daniel MD CHIEF COMPLAINT: Fluid retention, referred. PLAN: Disposition: Admit MEDICAL DECISION MAKING: The patient is a pleasant 89-year-old gentleman with a past medical history of chronic diastolic heart failure on Bumex and eplerenone, atrial fibrillation on warfarin who presents to the emergency department via walk-in accompanied by his for evaluation of worsening edema over the past couple of weeks where he was seen by his cardiology office and referred to the emergency department for admission. Per records the patient is currently 10 pounds above his dry weight. He reports he has had worsening edema in his lower extremities and in particular into his scrotum. He reports he has been taking his Bumex as prescribed and following his fluid restriction. He denies any excess salt intake. Denies fevers, chills, cough, congestion, GI or symptoms. On evaluation the patient no acute distress, afebrile with stable vital signs. He appears hypervolemic with 2+ bilateral lower extremity pitting edema and significant scrotal edema without erythema warmth or tenderness. EKG without overt acute ischemia. CXR demonstrates congestive change with increased vascular congestion and pleural effusions bilaterally per my personal preliminary review/interpretation. WBC 4.7K without neutrophilia or left shift. H/H and platelets normal limits. Platelets within normal limits. Chemistry without metabolic acidosis. Electrolytes without significant abnormality. Total bilirubin 2.5, nonspecific LFTs otherwise unremarkable. Initial high-sensitivity troponin 77.1, nonspecific and similar to prior in the setting of patient's CHF and hypervolemia. BMP elevated at 753, similar to prior in the setting of the patient's known CHF. Lipase is normal. TSH within normal limits. UA without evidence of infection. Given failed outpatient management of the patient's fluid status patient and agree with plan for admission for further management. Treatment initiated with IV Bumex. Dr. Handy, [facility] hospitalist, who will evaluate the patient for admission. Further management per admitting team. Triage Nursing notes reviewed and agree them. Prior/external medical records reviewed Vital Signs: reviewed Differential diagnosis: Reactive airway disease, pneumonia, pneumothorax, COPD, CHF, infections, cardiac ischemia, pulmonary embolism, musculoskeletal, gastrointestinal, as well as other pathologies. ER treatment provided: See below. Diagnostics interpreted by me: ECG: Atrial fibrillation, 79 bpm, PVC, no overt ST ovation or depression, QTc 419, QRS 94. Cardiac Monitoring: An order for continuous cardiac monitoring was placed and demonstrated atrial fibrillation, 79 bpm, periodic PVC. Laboratory studies: See below Imaging studies: See below Consultation(s): Dr. Handy, [facility] hospitalist, who will evaluate the patient for admission. HPI: Per MDM. ROS: See above HPI for pertinent positives & negatives. A total of 10 systems reviewed and were otherwise negative. VITALS:See Below PHYSICAL EXAMINATION: GENERAL: Awake, alert, fatigued/chronically ill-appearing, in no distress HENT: Normocephalic, atraumatic. Oropharynx unremarkable. EYES: Normal conjunctiva. Sclera non-icteric. NECK: Supple. No nuchal rigidity. FROM. No JVD. RESPIRATORY: Clear to auscultation. CARDIAC: Regular rate, irregular rhythm. Extremities warm and well perfused. Pulses equal. ABDOMEN: Soft, non-distended. No tenderness to palpation. No rebound or guarding. No masses. : Significant scrotal edema without erythema warmth or tenderness. MUSCULOSKELETAL: Chest examination reveals no tenderness. The back is symmetrical on inspection without obvious abnormality. There is no CVA tenderness to palpation. No joint edema. LOWER EXTREMITIES: Calves are equal size bilaterally and non-tender. 2+ bilateral lower extremity edema. No discoloration. NEURO: Normal sensorium. No sensory or motor deficits noted. SKIN: No rash or jaundice noted. Fran Daniel MD Past Med/Surg History Problem List (Updated 04/10/25 @ 00:17 by Fran Daniel MD) Scrotal edema (Acute) Essential hypertension Anticoagulated on Coumadin (Acute) Chronic atrial fibrillation (Acute) Chronic cor pulmonale Acute on chronic diastolic CHF (congestive heart failure) (Acute) Wild-type transthyretin-related (ATTR) amyloidosis Skin tear of left forearm without complication (Acute) Lymphedema Traumatic wound (Acute) Hematoma of right lower leg (Acute) Pressure injury of coccygeal region, stage 1 (Acute) Hydropneumothorax LVH (left ventricular hypertrophy) Moderate to severe per cardio records; ECHO appearance consistent with infiltrative disease- currently undergoing amyloid work up Pleural effusion (Acute) Tricuspid regurgitation Pleural effusion on left (Acute) Bilateral leg edema (Chronic) Incarcerated right inguinal hernia Foreskin swelling Lymphopenia Pleural effusion, right Anemia Chronic venous insufficiency of lower extremity (Chronic) Osteoarthritis of basilar joint of thumb Cervical radiculopathy (Chronic) Polyneuropathy (Chronic) Atrial fibrillation (Chronic) Hypertension (Chronic) Osteoarthritis (Chronic) Medical History Pneumothorax ex vacuo SIDNEY (acute kidney injury) Acute heart failure with preserved ejection fraction Acute exacerbation of CHF (congestive heart failure) SOB (shortness of breath) 10/30/24-11/02/24 [facility] ER/IP - as per patients patient has significantly improved with diuretic and patient hasn't complained of SOB or fluid retention. Pleural effusion Large bilateral pleural effusions L>R per 11/08/24 CXR (currently on diuretics); pulmonary symptoms resolved as of 11/23/24 HF Clinic note (HFpEF) heart failure with preserved ejection fraction Acute on chronic right sided CHF 10/30/24-11/02/24 (admitted to MD) IV lasix - at home d/c furosemide and started torsemide - as per patients weight has remained stable, denies dyspnea, and patient is "feeling much better" Gait disturbance Cane Osteoarthritis Severe tricuspid regurgitation Moderate to severe TR per 10/31/24 ECHO Polyneuropathy Hypertension Bilateral leg edema 10/30/24-11/02/24 [facility] ER/IP IV Lasix - d/c furosemide and started torsemide - as per patients weight has remained stable, denies dyspnea, able to ambulate with use of cane and patient is "feeling much better" Chronic venous insufficiency of lower extremity Per records Hearing loss Right Hearing Aid - stroke residual Atrial fibrillation [facility] - Warfarin Anemia Pulmonary hypertension Severe pulm HTN - PASP 65-70mmHg Asymmetrical left sensorineural hearing loss R/t stroke (2007) per patient/ Cerebrovascular accident, embolic (2007) Left Hearing Loss - no other residuals as per patients /patient 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 Basal cell carcinoma Actinic keratosis Chronic gastroesophageal reflux disease Controlled Surgical History H/O right inguinal hernia repair (12/05/24) Open Right Incarcerated Inguinal Hernia Repair, with Mesh(Right) - Germain Song DO PONV (postoperative nausea and vomiting) Hx of colonoscopy History of arthroscopy of left knee H/O basal cell carcinoma excision S/P thoracentesis (2021) H/O carpal tunnel repair bilateral Family History Other No family history of adverse response to anesthesia No family history of bleeding disorder Denies family history of Ovarian cancer Prostate cancer Myocardial infarction Breast cancer Colorectal cancer Social History Smoking Status: Never smoker Second Hand Exposure: No; Do You Dip or Chew Tobacco: No; Hx Alcohol Use: No Hx Substance Use: No Preferred Language: Czech Communication Ability: Effective Visual Impairment: No Limitations Hearing Ability: Normal Head Charger Required: No Beliefs That Will Affect Care: None marital status: Current Living Situation: Spouse current occupational status: retired Feels Safe at Home: Yes caffeine: Yes Dental Care, Regularly: Yes Seatbelt Use: always Sunscreen Use: Yes Assistive Devices: Cane, Glasses and Hearing Aid - Right Allergies Allergies Allergy/AdvReac Type Severity Reaction Status Date / Time suture glue Allergy Intermediate Rash Uncoded 04/09/25 09:32 Home Meds Home Medications Medication Instructions Recorded Confirmed cholecalciferol (vitamin D3) 25 0 mcg PO DAILY 01/11/24 04/09/25 mcg (1,000 unit) capsule warfarin 5 mg tablet 5 mg PO UD 04/09/25 04/09/25 Previous Rx's Medication Instructions Recorded metoprolol succinate 25 mg 25 mg PO QAM #90 tabs 12/27/24 tablet,extended release 24 hr empagliflozin 10 mg tablet 10 mg PO DAILY #30 tabs 01/15/25 (Jardiance) eplerenone 25 mg tablet (Inspra) 25 mg PO BID #180 tabs 02/07/25 bumetanide 2 mg tablet 4 mg (2 x 2 mg) PO DAILY #60 tabs 04/02/25 Results & Data (ED) Vital Signs Vital Signs - 24 hr 04/09/25 12:23 04/09/25 12:38 04/09/25 12:38 Temperature 36.0 C L Temperature Source Oral Pulse Rate 95 H Pulse Rate [Apical] Pulse Rhythm Regular Pulse Strength Normal Respiratory Rate 20 Respiratory Effort / Characteristics Non-Labored Spontaneous Non-Labored Respiratory Depth Normal Normal Respiratory Pattern Regular Regular Blood Pressure 123/68 Blood Pressure [Right Arm] Blood Pressure Mean 86 Blood Pressure Mean [Right Arm] Pulse Oximetry 97 95 Oxygen Delivery Method Room Air Room Air Room Air Sepsis Recent Fever Within 48 Hours No Sepsis New/Unexplained Change in Mental Status N/A Sepsis Action Taken by Nursing No Action Required 04/09/25 12:53 04/09/25 12:53 04/09/25 13:22 Temperature Temperature Source Pulse Rate 90 Pulse Rate [Apical] Pulse Rhythm Pulse Strength Respiratory Rate Respiratory Effort / Characteristics Non-Labored Spontaneous Respiratory Depth Normal Respiratory Pattern Regular Blood Pressure Blood Pressure [Right Arm] Blood Pressure Mean Blood Pressure Mean [Right Arm] Pulse Oximetry Oxygen Delivery Method Room Air Sepsis Recent Fever Within 48 Hours Sepsis New/Unexplained Change in Mental Status Sepsis Action Taken by Nursing 04/09/25 14:20 Temperature Temperature Source Pulse Rate Pulse Rate [Apical] 98 H Pulse Rhythm Pulse Strength Respiratory Rate 16 Respiratory Effort / Characteristics Non-Labored Spontaneous Respiratory Depth Normal Respiratory Pattern Blood Pressure Blood Pressure [Right Arm] 120/78 Blood Pressure Mean Blood Pressure Mean [Right Arm] 92 Pulse Oximetry 93 Oxygen Delivery Method Room Air Sepsis Recent Fever Within 48 Hours Sepsis New/Unexplained Change in Mental Status Sepsis Action Taken by Nursing Laboratory Data Attestation: I reviewed the patient's lab results. 04/09/25 12:34 04/09/25 12:34 Lab Results 04/09/25 04/09/25 04/09/25 Range/Units 12:34 13:58 14:36 WBC 4.73 L (4.8-10.8) K/ul RBC 4.64 L (4.70-6.10) M/uL Hgb 15.1 (14.0-18.0) g/dl Hct 42.2 (42.0-52.0) % MCV 90.9 (80.0-100.0) fL MCH 32.5 (25.0-34.0) pg MCHC 35.8 (32.0-36.0) g/dL RDW Std Deviation 50.6 H (36.4-46.3) fL RDW Coeff of Vasquez 15.4 H (11.5-14.5) % Plt Count 156 (130-400) K/uL MPV 9.4 (9.4-12.4) fL Immature Gran % (Auto) 0.4 % Neut % (Auto) 78.3 % Lymph % (Auto) 8.0 % [place] % (Auto) 12.5 % Eos % (Auto) 0.2 % Baso % (Auto) 0.6 % Neut # (Auto) 3.70 (1.40-6.50) K/uL Lymph # (Auto) 0.38 L (1.20-3.40) K/uL [place] # (Auto) 0.59 (0.11-0.59) K/uL Eos # (Auto) 0.01 (0.00-0.50) K/uL Baso # (Auto) 0.03 (0.00-0.20) K/uL Immature Gran # (Auto) 0.02 (0.01-0.20) K/uL PT Cancelled 25.6 H INR Cancelled 2.6 H Sodium 130 L (136-145) mmol/L Potassium 3.9 (3.5-5.1) mmol/L Chloride 89 L (98-107) mmol/L Carbon Dioxide 34 H (21-32) mmol/L Anion Gap 7 (3-11) BUN 32 H (6-23) mg/dl Creatinine 1.30 (0.6-1.4) mg/dl Est Cr Clr Drug Dosing Not Reportable eGFR 52.51 BUN/Creatinine Ratio 24.6 H (10-20) Glucose 120 H (70-99(Fasting)) mg/dl Calcium 9.1 (8.6-10.3) mg/dl Phosphorus 3.2 (2.5-4.9) mg/dl Magnesium 2.3 (1.7-2.4) mg/dl Total Bilirubin 2.5 H (0.2-1.0) mg/dl AST 37 (13-39) U/L ALT 17 (7-52) U/L Alkaline Phosphatase 111 H (34-104) U/L Troponin I High Sens 77.1 H* (0-20) pg/ml B-Natriuretic Peptide 753 H (0-100) pg/ml Total Protein 7.9 (6.0-8.3) gm/dl Albumin 3.8 (3.4-5.0) gm/dl Globulin 4.1 H (2.5-4.0) gm/dl Albumin/Globulin Ratio 0.9 (0.9-2) Lipase 30 (11-82) U/L TSH 4.225 (0.300-4.500) uIu/ml Urine Color Yellow Urine Appearance Clear (Clear) Urine pH 8.0 H (4.5-7.5) Ur Specific [place] 1.008 (1.000-1.030) Urine Protein Negative (Negative) Urine Glucose (UA) 2+ H (Negative) Urine Ketones Negative (Negative) Urine Blood Negative (Negative) Urine Nitrite Negative (Negative) Urine Bilirubin Negative (Negative) Urine Urobilinogen Negative (Negative) Ur Leukocyte Esterase Negative (Negative) Urine Comment 04/09/25 Range/Units 14:43 WBC (4.8-10.8) K/ul RBC (4.70-6.10) M/uL Hgb (14.0-18.0) g/dl Hct (42.0-52.0) % MCV (80.0-100.0) fL MCH (25.0-34.0) pg MCHC (32.0-36.0) g/dL RDW Std Deviation (36.4-46.3) fL RDW Coeff of Vasquez (11.5-14.5) % Plt Count (130-400) K/uL MPV (9.4-12.4) fL Immature Gran % (Auto) % Neut % (Auto) % Lymph % (Auto) % [place] % (Auto) % Eos % (Auto) % Baso % (Auto) % Neut # (Auto) (1.40-6.50) K/uL Lymph # (Auto) (1.20-3.40) K/uL [place] # (Auto) (0.11-0.59) K/uL Eos # (Auto) (0.00-0.50) K/uL Baso # (Auto) (0.00-0.20) K/uL Immature Gran # (Auto) (0.01-0.20) K/uL PT INR Sodium (136-145) mmol/L Potassium (3.5-5.1) mmol/L Chloride (98-107) mmol/L Carbon Dioxide (21-32) mmol/L Anion Gap (3-11) BUN (6-23) mg/dl Creatinine (0.6-1.4) mg/dl Est Cr Clr Drug Dosing eGFR BUN/Creatinine Ratio (10-20) Glucose (70-99(Fasting)) mg/dl Calcium (8.6-10.3) mg/dl Phosphorus (2.5-4.9) mg/dl Magnesium (1.7-2.4) mg/dl Total Bilirubin (0.2-1.0) mg/dl AST (13-39) U/L ALT (7-52) U/L Alkaline Phosphatase (34-104) U/L Troponin I High Sens 68.6 H* (0-20) pg/ml B-Natriuretic Peptide (0-100) pg/ml Total Protein (6.0-8.3) gm/dl Albumin (3.4-5.0) gm/dl Globulin (2.5-4.0) gm/dl Albumin/Globulin Ratio (0.9-2) Lipase (11-82) U/L TSH (0.300-4.500) uIu/ml Urine Color Urine Appearance (Clear) Urine pH (4.5-7.5) Ur Specific [place] (1.000-1.030) Urine Protein (Negative) Urine Glucose (UA) (Negative) Urine Ketones (Negative) Urine Blood (Negative) Urine Nitrite (Negative) Urine Bilirubin (Negative) Urine Urobilinogen (Negative) Ur Leukocyte Esterase (Negative) Urine Comment Administered Medications Eplerenone (Eplerenone) 1 each PO BID SANDRA Stop: 05/09/25 20:59 Last Admin: 04/09/25 21:09 Dose: 1 each Documented By: CR Furosemide (Furosemide 40 Mg/4 Ml Vial) 60 mg IV Q12H SANDRA Stop: 05/09/25 16:29 Last Admin: 04/09/25 16:37 Dose: 60 mg Documented By: MP Miscellaneous (Order Awaiting Action - Eplerenone [Inspra] 25 Mg Tablet) 1 each N/A QS SANDRA Stop: 05/10/25 00:00 Last Admin: 04/09/25 23:58 Dose: Not Given Documented By: CR Warfarin Sodium (Warfarin Sod 5 Mg Tab) 5 mg PO Mo@1600 SANDRA Stop: 05/09/25 16:29 Last Admin: 04/09/25 16:38 Dose: 5 mg Documented By: BAO Discontinued Medications Bumetanide 4 mg/ Syringe 16 mls @ 4 mls/min IV ONE ONE Stop: 04/09/25 13:56 Last Admin: 04/09/25 14:13 Dose: 4 mls/min Documented By: CAROLINE Imaging Data Radiologist's Impression: Chest X-Ray 04/09/25 12:53 XR chest 1V portable CLINICAL HISTORY: Chest pain, nonspecific COMPARISON STUDY: 01/04/2025 FINDINGS: Stable prominent cardiomegaly with increased pulmonary vascular congestion. There are small bilateral pleural effusions and associated lung base consolidation. No pneumothorax. IMPRESSION: CHF with pleural effusions and lung base consolidation. ACT 112: Negative or not required by law. Electronically signed by: Prince Atkins M.D. 04/09/2025 1:23 PM Discharge Plan Visit Data Chief Complaint: Shortness of Breath/Dyspnea Stated Complaint: cant breathe ED Provider: Fran Daniel Discharge Problem: Acute on chronic diastolic CHF (congestive heart failure), Pleural effusion, Chronic atrial fibrillation, Anticoagulated on Coumadin, Bilateral leg edema, Scrotal edema Patient Disposition: Admitted As Inpatient Condition: Fair Discharge Instructions Interventions: ED Discharge Assessment Last Done: 04/09/25 15:46
[2025-04-09] MEDS: BUMETANIDE 4 MG in SYRINGE 0 ML IV ONE (14:13)
[2025-04-09 14:43] LABS: INR 2.6 (0.9-1.1); Prothrombin Time 25.6 Seconds (9.0-12.0)
[2025-04-09 15:05] LABS: Appearance Urine Clear (Clear); Glucose Urine UA 2+ (Negative)
--- NOTE | 2025-04-09 15:39 | History & Physical Report ---
Date of Service April 09, 2025 Assessment & Plan (1) Acute on chronic diastolic CHF (congestive heart failure): Plan: Parenteral Lasix diuresis. Yoder catheter for accurate urine output measurements. Serial chest x-ray (2) Chronic cor pulmonale: Plan: Known severe tricuspid regurgitation and elevated right ventricular systolic pressures (3) Chronic atrial fibrillation: Plan: Telemetry. Continue Coumadin. Continue metoprolol (4) Anticoagulated on Coumadin: Plan: Continue warfarin. Daily INR measurements (5) Essential hypertension: Plan: Continue metoprolol Plan Hopeful discharge to home within the next 2 to 3 days History of Present Illness Chief Complaint: Dyspnea on exertion Primary Care Provider: Kellee Freeman MD 89-year-old white male with progressively worsening dyspnea on exertion. He presented to the ED for evaluation. Chest x-ray reveals evidence of congestive heart failure with bilateral pleural effusions. BNP elevated at 753. Troponin is elevated but no acute EKG changes and he denies chest pain. EKG reveals chronic atrial fibrillation with nonspecific ST segment changes. Ventricular rate is controlled. He is admitted for further evaluation and treatment. No palpitations and no syncope. Allergies Allergy/AdvReac Type Severity Reaction Status Date / Time suture glue Allergy Intermediate Rash Uncoded 04/09/25 09:32 Home Medications Medication Instructions Recorded Confirmed Type cholecalciferol (vitamin D3) 25 0 mcg PO DAILY 01/11/24 04/09/25 History mcg (1,000 unit) capsule metoprolol succinate 25 mg 25 mg PO QAM #90 tabs 12/27/24 04/09/25 Rx tablet,extended release 24 hr empagliflozin 10 mg tablet 10 mg PO DAILY #30 tabs 01/15/25 04/09/25 Rx (Jardiance) eplerenone 25 mg tablet (Inspra) 25 mg PO BID #180 tabs 02/07/25 04/09/25 Rx bumetanide 2 mg tablet 4 mg (2 x 2 mg) PO DAILY #60 tabs 04/02/25 04/09/25 Rx warfarin 5 mg tablet 5 mg PO UD 04/09/25 04/09/25 History Past Med/Surg History Problem List (Updated 04/09/25 @ 15:38 by Neto Handy MD) Essential hypertension Anticoagulated on Coumadin Chronic atrial fibrillation Chronic cor pulmonale Acute on chronic diastolic CHF (congestive heart failure) Wild-type transthyretin-related (ATTR) amyloidosis Skin tear of left forearm without complication (Acute) Lymphedema Traumatic wound (Acute) Hematoma of right lower leg (Acute) Pressure injury of coccygeal region, stage 1 (Acute) Hydropneumothorax LVH (left ventricular hypertrophy) Moderate to severe per cardio records; ECHO appearance consistent with infiltrative disease- currently undergoing amyloid work up Pleural effusion (Acute) Tricuspid regurgitation Pleural effusion on left (Acute) Bilateral leg edema (Chronic) Incarcerated right inguinal hernia Foreskin swelling Lymphopenia Pleural effusion, right Anemia Chronic venous insufficiency of lower extremity (Chronic) Osteoarthritis of basilar joint of thumb Cervical radiculopathy (Chronic) Polyneuropathy (Chronic) Atrial fibrillation (Chronic) Hypertension (Chronic) Osteoarthritis (Chronic) Medical History Pneumothorax ex vacuo SIDNEY (acute kidney injury) Acute heart failure with preserved ejection fraction Acute exacerbation of CHF (congestive heart failure) SOB (shortness of breath) 10/30/24-11/02/24 [facility] ER/IP - as per patients patient has significantly improved with diuretic and patient hasn't complained of SOB or fluid retention. Pleural effusion Large bilateral pleural effusions L>R per 11/08/24 CXR (currently on diuretics); pulmonary symptoms resolved as of 11/23/24 HF Clinic note (HFpEF) heart failure with preserved ejection fraction Acute on chronic right sided CHF 10/30/24-11/02/24 (admitted to [place]) IV lasix - at home d/c furosemide and started torsemide - as per patients weight has remained stable, denies dyspnea, and patient is "feeling much better" Gait disturbance Cane Osteoarthritis Severe tricuspid regurgitation Moderate to severe TR per 10/31/24 ECHO Polyneuropathy Hypertension Bilateral leg edema 10/30/24-11/02/24 [facility] ER/IP IV Lasix - d/c furosemide and started torsemide - as per patients weight has remained stable, denies dyspnea, able to ambulate with use of cane and patient is "feeling much better" Chronic venous insufficiency of lower extremity Per records Hearing loss Right Hearing Aid - stroke residual Atrial fibrillation [facility] - Warfarin Anemia Pulmonary hypertension Severe pulm HTN - PASP 65-70mmHg Asymmetrical left sensorineural hearing loss R/t stroke (2007) per patient/ Cerebrovascular accident, embolic (2007) Left Hearing Loss - no other residuals as per patients /patient 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 Basal cell carcinoma Actinic keratosis Chronic gastroesophageal reflux disease Controlled Surgical History H/O right inguinal hernia repair (12/05/24) Open Right Incarcerated Inguinal Hernia Repair, with Mesh(Right) - Germain Song DO PONV (postoperative nausea and vomiting) Hx of colonoscopy History of arthroscopy of left knee H/O basal cell carcinoma excision S/P thoracentesis (2021) H/O carpal tunnel repair bilateral Family History Other No family history of adverse response to anesthesia No family history of bleeding disorder Denies family history of Ovarian cancer Prostate cancer Myocardial infarction Breast cancer Colorectal cancer Social History Smoking Status: Never smoker Second Hand Exposure: No; Do You Dip or Chew Tobacco: No; Hx Alcohol Use: No Hx Substance Use: No Preferred Language: [place] Communication Ability: Effective Visual Impairment: No Limitations Hearing Ability: Normal Reversal Print Inspector Required: No Beliefs That Will Affect Care: None marital status: Current Living Situation: Spouse current occupational status: retired Feels Safe at Home: Yes caffeine: Yes Dental Care, Regularly: Yes Seatbelt Use: always Sunscreen Use: Yes Assistive Devices: Cane Review of Systems 2 Review of Systems: Constitutionalno fever or chills ENTno blurred vision, no double vision, no epistaxis, no sore throat Respiratoryno cough or wheezing. He does have shortness of breath with exertion and orthopnea Cardiacno palpitations, no chest pain, no syncope Luis Alfredo nausea, vomiting, diarrhea, melena, hematochezia GUno urinary retention, no urinary incontinence, no dysuria, no hematuria Musculoskeletalno joint pain, no muscle tenderness Skinno bruising, no rashes, no pruritus Neurono isolated weakness, no paresthesia, no weakness Psychno depression, no anxiety Physical Exam 2 Physical Exam: General-alert and oriented x3, no fever, no chills HEENT-head atraumatic and normocephalic, pupils equal and reactive to light, extraocular muscles intact Neck-no lymphadenopathy or thyromegaly, trachea midline Chest-bibasilar inspiratory rales. No wheezing. No rhonchi. Cardiac-mildly tachycardic irregular rhythm. Normal S1 and S2 Abdomenn-normal bowel sounds, no hepatosplenomegaly Extremities-no cyanosis, clubbing, or edema Neuro-cranial nerves II through XII intact, motor and sensory function within normal limits, strength symmetrical, no focal deficits Psych-normal affect, normal mood Results & Data Results & Data Vital Signs (Past 12 Hours) Vital Signs Temp Pulse Pulse Resp BP BP Pulse Ox 04/09/25 15:19 72 20 128/75 97 04/09/25 14:20 98 H 16 120/78 93 04/09/25 13:22 90 04/09/25 12:53 04/09/25 12:38 95 04/09/25 12:38 04/09/25 12:23 36.0 C L 95 H 20 123/68 97 O2 Del Method 04/09/25 15:19 Room Air 04/09/25 14:20 Room Air 04/09/25 13:22 04/09/25 12:53 Room Air 04/09/25 12:38 Room Air 04/09/25 12:38 Room Air 04/09/25 12:23 Room Air Laboratory Results 04/09/25 12:34 04/09/25 12:34 Code Status & VTE Plan Code Status DNR/DNI PG Care Time/CCT Total # of Minutes Spent Total Time Spent with Patient: Total time spent is greater than 50% in coordination of care (as documented) at patient's floor/unit and/or counseling patient: Coding Level of Care Code 27462 INT INP/OBS CARE 3/75MIN Diagnoses Acute on chronic diastolic CHF (congestive heart failure) I50.33 Chronic cor pulmonale I27.81 Chronic atrial fibrillation I48.20 Anticoagulated on Coumadin Z79.01 Essential hypertension I10
[2025-04-09] MEDS ORDERED: ACETAMINOPHEN 325 MG TAB PO PRN (16:12)
[2025-04-09] MEDS ORDERED: ONDANSETRON INJ 2 MG/ML 2 ML VIAL IV PRN (16:12)
[2025-04-09] MEDS ORDERED: WARFARIN SOD 2.5 MG TAB PO SCH (16:30)
[2025-04-09] MEDS: FUROSEMIDE 40 MG/4 ML VIAL IV SCH (16:37)
[2025-04-09] MEDS: WARFARIN SOD 5 MG TAB PO SCH (16:38)
[2025-04-09] MEDS: EPLERENONE PO SCH (21:09)
[2025-04-10 06:53] LABS: Anion Gap 8.0 (3-11); Blood Urea Nitrogen 29.0 mg/dl (6-23); Calcium 8.8 mg/dl (8.6-10.3); Carbon Dioxide 33.0 mmol/L (21-32); Chloride 92.0 mmol/L (98-107); Creatinine Clr Calc Pharmacy 45.6 ml/min; Glucose 75.0 mg/dl (70-99(Fasting)); Potassium 3.5 mmol/L (3.5-5.1); Sodium 133.0 mmol/L (136-145)
[2025-04-10 06:59] LABS: INR 2.5 (0.9-1.1); Prothrombin Time 25.1 Seconds (9.0-12.0)
[2025-04-10] MEDS: METOPROLOL SUCC 25MG EXT REL TAB PO SCH (08:57)
[2025-04-10] MEDS: EMPAGLIFLOZIN 10 MG TAB PO SCH (08:58)
[2025-04-10] MEDS: CHOLECALCIFEROL 25 MCG (1000 UNITS) TAB PO SCH (08:58)
--- NOTE | 2025-04-10 10:33 | Hospitalist Progress Note ---
Date of Service April 10, 2025 Assessment & Plan (1) Acute on chronic diastolic CHF (congestive heart failure): Plan: Continue parenteral Lasix diuresis. Good response thus far. Continue Yoder catheter for accurate urine output measurements. Serial chest x-ray (2) Chronic cor pulmonale: Plan: Known severe tricuspid regurgitation and elevated right ventricular systolic pressures (3) Chronic atrial fibrillation: Plan: Telemetry. Continue Coumadin. Continue metoprolol (4) Anticoagulated on Coumadin: Plan: Continue warfarin. Daily INR measurements (5) Essential hypertension: Plan: Continue metoprolol Plan Hopeful discharge to home tomorrow, April 11. OT and PT assessments requested. Admission and Anticipated Discharge Date Admission Date: April 09, 2025 Subjective Alert and pleasant. Brisk diuresis with parenteral Lasix. INR is 2.5 today, April 10. OT and PT assessments requested. Will repeat chest x-ray again tomorrow, April 11. He remains on room air. Hopefully he can go home within the next day or 2 Review of Systems 2 Review of Systems: Constitutionalno fever or chills ENTno blurred vision, no double vision, no epistaxis, no sore throat Respiratoryno cough, no wheezing, no shortness of breath at rest. He does have dyspnea on exertion Cardiacno palpitations, no chest pain, no syncope Luis Alfredo nausea, vomiting, diarrhea, melena, hematochezia GUno urinary retention, no urinary incontinence, no dysuria, no hematuria Musculoskeletalno joint pain, no muscle tenderness Skinno bruising, no rashes, no pruritus Neurono isolated weakness, no paresthesia, no weakness Psychno depression, no anxiety Physical Exam 2 Physical Exam: General-alert and oriented x3, no fever, no chills HEENT-head atraumatic and normocephalic, pupils equal and reactive to light, extraocular muscles intact Neck-no lymphadenopathy or thyromegaly, trachea midline Chest-bibasilar inspiratory rales. No wheezing. No rhonchi. Cardiac-mildly tachycardic irregular rhythm. Normal S1 and S2 Abdomenn-normal bowel sounds, no hepatosplenomegaly Extremities-no cyanosis, clubbing, or edema Neuro-cranial nerves II through XII intact, motor and sensory function within normal limits, strength symmetrical, no focal deficits Psych-normal affect, normal mood Results & Data Results & Data Vital Signs (Past 12 Hours) Vital Signs Temp Pulse Resp BP Pulse Ox O2 Del Method 04/10/25 07:28 36.3 C L 90 19 116/74 95 Room Air 04/10/25 03:53 36.5 C 73 18 109/74 92 Room Air 04/10/25 00:03 36.4 C L 58 L 18 108/67 98 Room Air Laboratory Results 04/09/25 12:34 04/10/25 05:32 PG Care Time/CCT Total # of Minutes Spent Total Time Spent with Patient: Total time spent is greater than 50% in coordination of care (as documented) at patient's floor/unit and/or counseling patient: Coding Level of Care Code 30688 SUB INP/OBS CARE 2/35MIN Diagnoses Acute on chronic diastolic CHF (congestive heart failure) I50.33 Chronic cor pulmonale I27.81 Chronic atrial fibrillation I48.20 Anticoagulated on Coumadin Z79.01 Essential hypertension I10
[2025-04-10] MEDS: WARFARIN SOD 2.5 MG TAB PO SCH (17:06)
[2025-04-11 06:26] LABS: Anion Gap 7.0 (3-11); Blood Urea Nitrogen 31.0 mg/dl (6-23); Calcium 8.7 mg/dl (8.6-10.3); Carbon Dioxide 33.0 mmol/L (21-32); Chloride 95.0 mmol/L (98-107); Creatinine Clr Calc Pharmacy 37.1 ml/min; Glucose 82.0 mg/dl (70-99(Fasting)); Potassium 3.5 mmol/L (3.5-5.1); Sodium 135.0 mmol/L (136-145)
[2025-04-11 06:41] LABS: INR 2.7 (0.9-1.1); Prothrombin Time 26.4 Seconds (9.0-12.0)
[2025-04-11 07:22] VITALS: BP 112/52; RESP 24; TEMP 97.2; O2SAT 96
--- NOTE | 2025-04-11 07:33 | XRay Report ---
EXAM: XR chest 1V portable CLINICAL HISTORY: CHF TECHNIQUE: An X-ray image of the chest is obtained in AP projection. COMPARISON: Prior CR study dated 04/09/2025, 01/04/2025 FINDINGS: Pulmonary Parenchyma: Obliteration of both costophrenic angles, with rising levels and underlying basal lung opacities, suggests bilateral moderate pleural effusion, more on the left Bilateral hilar ill-defined opacities, more pronounced on the left side, with prominent bronchivascular markings, suggest pulmonary edema Heart and Mediastinum: cardiomegaly Bony Thorax: Bony thorax appears intact without fractures or deformities. Soft Tissues: Soft tissues overlying the chest wall are unremarkable. IMPRESSION: 1. Interval increase in extent of bilateral pleural effusion, more on the left (moderate effusion) associated with basal lung collapse and features of pulmonary edema. 2. Cardiomegaly (unchanged) Electronically signed by Jameel Parikh 04-11-2025 07:33 AM
--- NOTE | 2025-04-11 09:49 | Discharge Summary ---
Discharge Summary Date of Service April 11, 2025 Principal Dx & Hospital Course #1 = Principal Diagnosis (1) Acute on chronic diastolic CHF (congestive heart failure): Treated while hospitalized with parenteral Lasix diuresis. He had a good diuretic response. Chest x-ray is improved but continues to show bilateral pleural effusions which might take some time to resolve or may never entirely resolve. Yoder catheter will be removed prior to discharge. He will take metolazone in addition to his other medications every Wednesday and Wednesday going forward. (2) Chronic cor pulmonale: Known severe tricuspid regurgitation and elevated right ventricular systolic pressures (3) Chronic atrial fibrillation: Telemetry while hospitalized. Continue Coumadin. Continue metoprolol (4) Anticoagulated on Coumadin: Continue warfarin. Daily INR measurements (5) Essential hypertension: Continue metoprolol Plan Home today, April 11. Home health services requested Admission HPI Per Admitting Provider 89-year-old white male with progressively worsening dyspnea on exertion. He presented to the ED for evaluation. Chest x-ray reveals evidence of congestive heart failure with bilateral pleural effusions. BNP elevated at 753. Troponin is elevated but no acute EKG changes and he denies chest pain. EKG reveals chronic atrial fibrillation with nonspecific ST segment changes. Ventricular rate is controlled. He is admitted for further evaluation and treatment. No palpitations and no syncope. Discharge Exam General-alert and oriented x3, no fever, no chills HEENT-head atraumatic and normocephalic, pupils equal and reactive to light, extraocular muscles intact Neck-no lymphadenopathy or thyromegaly, trachea midline Chest-bibasilar inspiratory rales. No wheezing. No rhonchi. Cardiac-mildly tachycardic irregular rhythm. Normal S1 and S2 Abdomenn-normal bowel sounds, no hepatosplenomegaly Extremities-no cyanosis, clubbing, or edema Neuro-cranial nerves II through XII intact, motor and sensory function within normal limits, strength symmetrical, no focal deficits Psych-normal affect, normal mood Discharge Plan Discharge Items Patient Disposition: Home - Home Health Services Reason For Visit: CHF Discharge Diagnosis: Acute on chronic diastolic CHF Condition on Discharge: Good Activity: Resume your previous activity Non-emergency contact: Primary Care Provider and Resource Program Teacher Call non-emergency contact if: your symptoms worsen Follow-up/Referrals: Kellee Freeman MD [Primary Care Provider] - Diet: Regular and Heart Healthy Addtl Attending Provider Instructions: Take additional water pill (metolazone) every Wednesday and Wednesday in addition to all other medications which remain the same. A prescription for metolazone has been sent to [facility]. Pending Studies at Discharge: No Stand-Alone Forms: My [facility] [employer], Smoking Cessation Medications and DC Order Prescriptions: New metolazone 5 mg tablet See Rx Instructions .ROUTE .COMPLEX Qty: 30 0RF Rx Instructions: 5 mg orally on Mondays, Wednesdays, and Fridays in the morning Continued metoprolol succinate 25 mg tablet extended release 24 hr 25 mg PO QAM Qty: 90 1RF Jardiance 10 mg tablet 10 mg PO DAILY Qty: 30 2RF Patient Comments: "Has not started - >$500" as per patients eplerenone [Inspra] 25 mg tablet 25 mg PO BID Qty: 180 3RF cholecalciferol (vitamin D3) 25 mcg (1,000 unit) capsule 0 mcg PO DAILY Patient Comments: 04/09 otc unable to verify bumetanide 2 mg tablet 4 mg PO DAILY Qty: 60 3RF warfarin 5 mg tablet 5 mg PO UD Patient Comments: 04/09- last filled 12/28/24 90 day supply #64 Rx Instructions: 5mg q Wednesday, 2.5mg x 6 days per [facility] orally use as directed; Discharge Orders: Discharge Order- CHF (Routine); Ordered 04/11/25 Ordered By: Neto Handy Admission Data Admit Date/Time: 04/09/25 14:45 Attending Provider: Neto Handy Admit Provider: Neto Handy Primary Care Provider: Kellee Freeman Hospital Stay Data Pending Results Patient Have Any Pending Studies at Discharge: No Discharge Instructions Given to Patient (Per Discharging Provider) Take additional water pill (metolazone) every Wednesday and Wednesday in addition to all other medications which remain the same. A prescription for metolazone has been sent to [facility]. Total Time Total Time Spent Total Time Spent (In Minutes): 45 minutes Coding Level of Care Code 56483 INP/OBS DISCH >30 MIN Diagnoses Acute on chronic diastolic CHF (congestive heart failure) I50.33 Chronic cor pulmonale I27.81 Chronic atrial fibrillation I48.20 Anticoagulated on Coumadin Z79.01 Essential hypertension I10
[2025-04-11 11:02] VITALS: PULSE 94
== END 2025-04-11 11:25 | disposition home health service (06) | DRG 291 ==
LOC: SUATTDRO → ED 12:19 → 4W 14:45

== ENCOUNTER 2025-04-27 08:29 | Inpatient (IN) ==
--- NOTE | 2025-04-27 08:39 | Emergency Department Note ---
Impression & Plan Acute hyponatremia Admission ED Provider Note HPI: History obtained from patient. The patient is a 89-year-old gentleman with history of amyloidosis, CHF, chronic venous insufficiency of the lower extremities, atrial fibrillation on Coumadin, presents the emergency department after a fall at home. Patient tells me that at approximately 7 AM he was attempting to change the thermostat at his home when he tripped on his slipper and fell to the ground. Patient states his then later found him on the ground when she got out of bed and contacted EMS for lift assist. Patient was lifted in the field by EMS and was having some difficulty bearing weight and ambulating the way he normally does and therefore he was brought to the ER to be assessed. On arrival here to the ED the patient is alert and oriented x 3, he appears to be in no acute distress. ROS: - Per HPI Differential Diagnosis: Intracranial injury to include subdural hematoma, epidural hematoma, skull fracture, hip fracture, pneumothorax, hemothorax, rib fractures, dehydration/acute kidney injury, amongst other potential pathologies. *Outpatient medications and allergy history reviewed. PE: General: Alert, frail-appearing/cachectic HEENT: Normocephalic, trachea midline, small abrasion to the right cheek without active bleeding Eyes: Extraocular eye movement is intact, no scleral erythema Pulmonary: Clear to auscultation bilaterally, no wheezing Cardio: Regular rate and rhythm GI: Abdomen is soft to palpation : No suprapubic tenderness MSK: No evidence of trauma or malformation of the extremities, 2+ edema bilateral lower extremities Skin: No evidence of rash, abrasion to the right elbow without active bleeding, small abrasion to the right cheek without active bleeding Neuro: Alert, no focal deficits Psychiatric: Cooperative INDEPENDENT INTERPRETATIONS: youth nutritional monitor: (As interpreted by myself): - An order was placed for continuous cardiac monitoring - Patient was noted to be in sinus rhythm with a rate of 70 Chest x-ray: (As interpreted by myself): No acute disease Interventions provided in ED: - IV fluid bolus, potassium chloride Medical Decision Making: IV was established and lab work obtained, patient was placed on youth nutritional monitor. Lab work shows a mild leukopenia at 4.73, hemoglobin is normal, platelet count is normal, INR is slightly under therapeutic level at 1.8, serum sodium level is 120 which does appear to be new for the patient. BNP is elevated at 718. Chest x-ray shows a CHF pattern, there is no evidence of any obvious rib fractures, there is no pneumothorax or hemothorax. Pelvic x-ray does not show any evidence of acute fracture. CT imaging of the head does not show any evidence of any acute intracranial bleeding. Patient is saturating well on room air at this time. He does have findings concerning for fluid overload on physical exam as well as chest x-ray however he is saturating well on room air and given that he has hyponatremia and hypokalemia, will avoid diuresis at this time. On my reassessment the patient's is at the bedside. She states the patient has seemed more weak and had some difficulty ambulating recently at home. Given his hyponatremia with the symptoms I do feel he is appropriate for admission. She was in agreement. I discussed patient's presentation with the on-call hospitalist, Dr. Vasquez, the patient was placed for admission in stable condition for further management. Consultants/Discussions held with other healthcare providers: - Hospitalist, Dr. Vasquez Disposition discussion held by myself with: - Patient and patient's at the bedside Diagnosis: 1. Hyponatremia, acute 2. Mechanical fall, acute 3. Elevated BNP, acute 4. Hypokalemia, acute Disposition: Admission Reid Welsh DO Emergency Medicine Past Med/Surg History Problem List (Updated 04/27/25 @ 13:30 by Brendan Vasquez MD) Hyponatremia Acute on chronic diastolic CHF (congestive heart failure) (Acute) Wild-type transthyretin-related (ATTR) amyloidosis Skin tear of left forearm without complication (Acute) Lymphedema Traumatic wound (Acute) Hematoma of right lower leg (Acute) Pressure injury of coccygeal region, stage 1 (Acute) Hydropneumothorax LVH (left ventricular hypertrophy) Moderate to severe per cardio records; ECHO appearance consistent with infiltrative disease- currently undergoing amyloid work up Pleural effusion (Acute) Tricuspid regurgitation Pleural effusion on left (Acute) Incarcerated right inguinal hernia Foreskin swelling Lymphopenia Pleural effusion, right Anemia Chronic venous insufficiency of lower extremity (Chronic) Osteoarthritis of basilar joint of thumb Cervical radiculopathy (Chronic) Polyneuropathy (Chronic) Atrial fibrillation (Chronic) Hypertension (Chronic) Osteoarthritis (Chronic) Medical History Pneumothorax ex vacuo SIDNEY (acute kidney injury) Acute heart failure with preserved ejection fraction Acute exacerbation of CHF (congestive heart failure) SOB (shortness of breath) 10/30/24-11/02/24 [facility] ER/IP - as per patients patient has significantly improved with diuretic and patient hasn't complained of SOB or fluid retention. Pleural effusion Large bilateral pleural effusions L>R per 11/08/24 CXR (currently on diuretics); pulmonary symptoms resolved as of 11/23/24 HF Clinic note (HFpEF) heart failure with preserved ejection fraction Acute on chronic right sided CHF 10/30/24-11/02/24 (admitted to [facility]) IV lasix - at home d/c furosemide and started torsemide - as per patients weight has remained stable, denies dyspnea, and patient is "feeling much better" Gait disturbance Cane Osteoarthritis Severe tricuspid regurgitation Moderate to severe TR per 10/31/24 ECHO Polyneuropathy Hypertension Bilateral leg edema 10/30/24-11/02/24 [facility] ER/IP IV Lasix - d/c furosemide and started torsemide - as per patients weight has remained stable, denies dyspnea, able to ambulate with use of cane and patient is "feeling much better" Chronic venous insufficiency of lower extremity Per records Hearing loss Right Hearing Aid - stroke residual Atrial fibrillation [facility] Clinic - Warfarin Anemia Pulmonary hypertension Severe pulm HTN - PASP 65-70mmHg Asymmetrical left sensorineural hearing loss R/t stroke (2007) per patient/ Cerebrovascular accident, embolic (2007) Left Hearing Loss - no other residuals as per patients /patient 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 Basal cell carcinoma Actinic keratosis Chronic gastroesophageal reflux disease Controlled Surgical History H/O right inguinal hernia repair (12/05/24) PONV (postoperative nausea and vomiting) Hx of colonoscopy History of arthroscopy of left knee H/O basal cell carcinoma excision S/P thoracentesis (2021) H/O carpal tunnel repair Family History Other No family history of adverse response to anesthesia No family history of bleeding disorder Denies family history of Ovarian cancer Prostate cancer Myocardial infarction Breast cancer Colorectal cancer Social History Smoking Status: Never smoker Second Hand Exposure: No; Do You Dip or Chew Tobacco: No; Hx Alcohol Use: No Hx Substance Use: No Preferred Language: Estonian Communication Ability: Effective Visual Impairment: No Limitations Hearing Ability: Normal Clam Shucker Required: No Beliefs That Will Affect Care: Latter-Day Latter-Day Beliefs: restoration marital status: Current Living Situation: Spouse current occupational status: retired Feels Safe at Home: Yes caffeine: Yes Dental Care, Regularly: Yes Seatbelt Use: always Sunscreen Use: Yes Assistive Devices: Cane and Walker Allergies Allergies Allergy/AdvReac Type Severity Reaction Status Date / Time suture glue Allergy Intermediate Rash Uncoded 04/27/25 09:53 Home Meds Home Medications Medication Instructions Recorded Confirmed cholecalciferol (vitamin D3) 25 25 mcg PO DAILY 01/11/24 04/27/25 mcg (1,000 unit) capsule warfarin 5 mg tablet 5 mg PO QPM 04/17/25 04/27/25 metolazone 5 mg tablet 5 mg PO 3XWK PRN weight gain, 04/27/25 04/27/25 edema, shortness of breath warfarin 5 mg tablet 2.5 mg PO 6XWK 04/27/25 04/27/25 Previous Rx's Medication Instructions Recorded metoprolol succinate 25 mg 25 mg PO QAM #90 tabs 12/27/24 tablet,extended release 24 hr eplerenone 25 mg tablet (Inspra) 25 mg PO BID #180 tabs 02/07/25 bumetanide 2 mg tablet 4 mg (2 x 2 mg) PO DAILY #60 tabs 04/02/25 empagliflozin 10 mg tablet 10 mg PO DAILY #30 tabs 04/16/25 (Jardiance) potassium chloride 20 mEq 20 meq PO DAILY #30 tabs 04/17/25 tablet,extended release Results & Data (ED) Vital Signs Vital Signs - 24 hr 04/27/25 08:33 04/27/25 08:38 04/27/25 08:39 Temperature 36.9 C Temperature Source Oral Pulse Rate 94 H 87 Pulse Rate [Apical] Pulse Rate from SpO2 Sensor Respiratory Rate 18 Respiratory Effort / Characteristics Non-Labored Spontaneous Respiratory Depth Normal Respiratory Pattern Regular Blood Pressure 132/68 132/68 Blood Pressure [Right Arm] Blood Pressure Mean 112 89 Blood Pressure Mean [Right Arm] Blood Pressure Position [Right Arm] Pulse Oximetry 97 Oxygen Delivery Method Room Air Sepsis Recent Fever Within 48 Hours No Sepsis New/Unexplained Change in Mental Status No Sepsis Action Taken by Nursing No Action Required 04/27/25 08:57 04/27/25 09:00 04/27/25 09:00 Temperature Temperature Source Pulse Rate 87 107 H Pulse Rate [Apical] Pulse Rate from SpO2 Sensor 99 H 86 Respiratory Rate 29 H 26 H Respiratory Effort / Characteristics Respiratory Depth Respiratory Pattern Blood Pressure 103/62 Blood Pressure [Right Arm] Blood Pressure Mean 70 Blood Pressure Mean [Right Arm] Blood Pressure Position [Right Arm] Pulse Oximetry 96 Oxygen Delivery Method Room Air Sepsis Recent Fever Within 48 Hours Sepsis New/Unexplained Change in Mental Status Sepsis Action Taken by Nursing 04/27/25 09:06 04/27/25 09:45 04/27/25 09:54 Temperature Temperature Source Pulse Rate 73 69 Pulse Rate [Apical] Pulse Rate from SpO2 Sensor 84 75 Respiratory Rate 40 H 17 Respiratory Effort / Characteristics Respiratory Depth Respiratory Pattern Blood Pressure 115/59 L Blood Pressure [Right Arm] Blood Pressure Mean 92 Blood Pressure Mean [Right Arm] Blood Pressure Position [Right Arm] Pulse Oximetry 97 99 Oxygen Delivery Method Room Air Room Air Sepsis Recent Fever Within 48 Hours Sepsis New/Unexplained Change in Mental Status Sepsis Action Taken by Nursing 04/27/25 10:00 04/27/25 10:03 04/27/25 10:52 Temperature Temperature Source Pulse Rate 85 74 Pulse Rate [Apical] Pulse Rate from SpO2 Sensor 83 Respiratory Rate 24 28 H Respiratory Effort / Characteristics Respiratory Depth Respiratory Pattern Blood Pressure 106/55 L 118/76 Blood Pressure [Right Arm] Blood Pressure Mean 88 81 Blood Pressure Mean [Right Arm] Blood Pressure Position [Right Arm] Pulse Oximetry 99 100 Oxygen Delivery Method Room Air Sepsis Recent Fever Within 48 Hours Sepsis New/Unexplained Change in Mental Status Sepsis Action Taken by Nursing 04/27/25 11:00 04/27/25 12:00 04/27/25 12:00 Temperature Temperature Source Pulse Rate Pulse Rate [Apical] 83 66 67 Pulse Rate from SpO2 Sensor Respiratory Rate 16 16 16 Respiratory Effort / Characteristics Non-Labored Spontaneous Non-Labored Spontaneous Non-Labored Respiratory Depth Normal Normal Normal Respiratory Pattern Regular Regular Blood Pressure Blood Pressure [Right Arm] 120/71 109/77 Blood Pressure Mean Blood Pressure Mean [Right Arm] 87 87 Blood Pressure Position [Right Arm] Semi-fowlers Semi-fowlers Pulse Oximetry 98 97 99 Oxygen Delivery Method Room Air Room Air Room Air Sepsis Recent Fever Within 48 Hours Sepsis New/Unexplained Change in Mental Status Sepsis Action Taken by Nursing 04/27/25 12:50 04/27/25 13:00 Temperature Temperature Source Pulse Rate 64 Pulse Rate [Apical] 69 Pulse Rate from SpO2 Sensor Respiratory Rate 16 Respiratory Effort / Characteristics Non-Labored Spontaneous Respiratory Depth Normal Respiratory Pattern Regular Blood Pressure Blood Pressure [Right Arm] 117/58 L Blood Pressure Mean Blood Pressure Mean [Right Arm] 77 Blood Pressure Position [Right Arm] Pulse Oximetry 96 Oxygen Delivery Method Room Air Sepsis Recent Fever Within 48 Hours Sepsis New/Unexplained Change in Mental Status Sepsis Action Taken by Nursing Laboratory Data 04/27/25 08:42 04/27/25 10:57 Lab Results 04/27/25 04/27/25 04/27/25 Range/Units 08:42 10:57 11:32 WBC 4.73 L (4.8-10.8) K/ul RBC 4.53 L (4.70-6.10) M/uL Hgb 14.2 (14.0-18.0) g/dl Hct 38.8 L (42.0-52.0) % MCV 85.7 (80.0-100.0) fL MCH 31.3 (25.0-34.0) pg MCHC 36.6 H (32.0-36.0) g/dL RDW Std Deviation 43.0 (36.4-46.3) fL RDW Coeff of Vasquez 13.8 (11.5-14.5) % Plt Count 148 (130-400) K/uL MPV 8.9 L (9.4-12.4) fL Immature Gran % (Auto) 0.4 % Neut % (Auto) 79.1 % Lymph % (Auto) 7.4 % [place] % (Auto) 12.5 % Eos % (Auto) 0.2 % Baso % (Auto) 0.4 % Neut # (Auto) 3.74 (1.40-6.50) K/uL Lymph # (Auto) 0.35 L (1.20-3.40) K/uL [place] # (Auto) 0.59 (0.11-0.59) K/uL Eos # (Auto) 0.01 (0.00-0.50) K/uL Baso # (Auto) 0.02 (0.00-0.20) K/uL Immature Gran # (Auto) 0.02 (0.01-0.20) K/uL PT 18.5 H (9.0-12.0) Seconds INR 1.8 H (0.9-1.1) Sodium 120 L 119 L* (136-145) mmol/L Potassium 3.1 L 3.0 L (3.5-5.1) mmol/L Chloride 73 L 77 L (98-107) mmol/L Carbon Dioxide 32 32 (21-32) mmol/L Anion Gap 15 H 10 (3-11) BUN 47 H 43 H (6-23) mg/dl Creatinine 1.27 1.19 (0.6-1.4) mg/dl Est Cr Clr Drug Dosing 36.9 39.3 ml/min eGFR 54.00 58.39 BUN/Creatinine Ratio 37.0 H 36.1 H (10-20) Glucose 123 H 123 H (70-99(Fasting)) mg/dl Osmolality 265 L (280-300) mOsm/kg Calcium 9.5 9.2 (8.6-10.3) mg/dl Total Bilirubin 2.3 H (0.2-1.0) mg/dl AST 43 H (13-39) U/L ALT 21 (7-52) U/L Alkaline Phosphatase 111 H (34-104) U/L B-Natriuretic Peptide 718 H (0-100) pg/ml Total Protein 7.8 (6.0-8.3) gm/dl Albumin 3.9 (3.4-5.0) gm/dl Globulin 3.9 (2.5-4.0) gm/dl Albumin/Globulin Ratio 1.0 (0.9-2) Urine Osmolality 348 L (500-800) mOsm/kg Ur Random Sodium 17 mmol/L Administered Medications Discontinued Medications Sodium Chloride (Nss) 500 mls @ 999 mls/hr IV .Q31M STA Stop: 04/27/25 09:09 Last Infusion: 04/27/25 09:36 Dose: Infused Documented By: Admin: 04/27/25 09:01 Dose: 999 mls/hr Documented By: CAP Sodium Chloride (Hypertonic Saline 3%) 100 mls @ 600 mls/hr IV .Q10M ONE; Protocol Stop: 04/27/25 12:21 Last Admin: 04/27/25 13:07 Dose: 600 mls/hr Documented By: TONY Co-signed By: RASHAD Potassium Chloride (Potassium Chloride Pwd 20 Meq Pack) 40 meq PO NOW STA Stop: 04/27/25 10:14 Last Admin: 04/27/25 10:20 Dose: 40 meq Documented By: AMANDA Imaging Data Radiologist's Impression: Head CT 04/27/25 08:39 CT head/brain wo con CLINICAL HISTORY: 89 years-old Male with fall. Acute head trauma status post fall TECHNIQUE: Multiple axial CT images of the head were obtained without contrast. A dose lowering technique was utilized adhering to the principles of ALARA. CT DOSE: 705.24 mGy.cm COMPARISON: September 22, 2019 FINDINGS: No acute intracranial hemorrhage, midline shift, intracranial mass, hydrocephalus, territorial ischemia or abnormal extra-axial collection. Involutional changes with probable chronic microvascular ischemic disease. Chronic left cerebellar encephalomalacia. The calvarium is intact. The paranasal sinuses, mastoid air cells, and middle ear cavities are clear. IMPRESSION: No acute intracranial abnormality or calvarial fracture. ACT 112: Negative or not required by law. The above report was generated using voice recognition software. It may contain grammatical, syntax or spelling errors. Electronically signed by: Fletcher Rae M.D. 04/27/2025 9:08 AM Hip/Pelvis X-Ray 04/27/25 08:39 XR hip KEEGAN 2v w pelvis CLINICAL HISTORY: fall COMPARISON STUDY: None FINDINGS: There is skin fold artifacts. There is mild degenerative change of the hips. No fracture or dislocation seen. IMPRESSION: No fracture seen. ACT 112: Negative or not required by law. Electronically signed by: Prince Atkins M.D. 04/27/2025 9:50 AM Chest X-Ray 04/27/25 08:40 XR chest 1V portable CLINICAL HISTORY: fall COMPARISON STUDY: 04/11/2025 FINDINGS: Stable cardiomegaly with pulmonary vascular congestion. Stable small bilateral pleural effusions and associated lung base consolidation. No pneumothorax seen. No grossly displaced rib fracture seen. IMPRESSION: 1. CHF with pleural effusions. 2. No other acute findings seen. ACT 112: Negative or not required by law. Electronically signed by: Prince Atkins M.D. 04/27/2025 9:50 AM Discharge Plan Visit Data Chief Complaint: Fall Stated Complaint: FALL, ED Provider: Reid Welsh Discharge Problem: Acute hyponatremia Patient Disposition: Admitted As Inpatient Condition: Fair Forms Stand Alone Forms: My [facility] [employer] Prescriptions Prescriptions: No Action metoprolol succinate 25 mg tablet extended release 24 hr 25 mg PO QAM Qty: 90 1RF eplerenone [Inspra] 25 mg tablet 25 mg PO BID Qty: 180 3RF Jardiance 10 mg tablet 10 mg PO DAILY Qty: 30 2RF Patient Comments: "Has not started - >$500" as per patients cholecalciferol (vitamin D3) 25 mcg (1,000 unit) capsule 25 mcg PO DAILY bumetanide 2 mg tablet 4 mg PO DAILY Qty: 60 3RF potassium chloride 20 mEq tablet extended release 20 meq PO DAILY Qty: 30 2RF warfarin 5 mg tablet 5 mg PO QPM Rx Instructions: 5mg q Wednesday, 2.5mg x 6 days per [facility] orally use as directed warfarin 5 mg tablet 2.5 mg PO 6XWK Rx Instructions: 5mg q Wednesday, 2.5mg x 6 days per [facility] orally use as directed metolazone 5 mg tablet 5 mg PO 3XWK PRN (Reason: weight gain, edema, shortness of breath) Rx Instructions: Mon/Wed/Fri Referrals Referrals: Kellee Freeman MD [Primary Care Provider] -
[2025-04-27] MEDS: SODIUM CHLORIDE 0.9% 500 ML IV STA (09:01)
[2025-04-27 09:02] LABS: Hematocrit (blood only) 38.8 % (42.0-52.0); Hemoglobin 14.2 g/dl (14.0-18.0); Immature Granulocytes # (auto) 0.02 K/uL (0.01-0.20); Immature Granulocytes % (auto) 0.4 %; Mean Corpuscular Hemoglobin 31.3 pg (25.0-34.0); Mean Corpuscular Volume 85.7 fL (80.0-100.0); Platelet Count 148 K/uL (130-400); RDW Standard Deviation 43.0 fL (36.4-46.3); Red Blood Count 4.53 M/uL (4.70-6.10); White Blood Count 4.73 K/ul (4.8-10.8)
--- NOTE | 2025-04-27 09:10 | CT Scan Report ---
CT head/brain wo con CLINICAL HISTORY: 89 years-old Male with fall. Acute head trauma status post fall TECHNIQUE: Multiple axial CT images of the head were obtained without contrast. A dose lowering tech nique was utilized adhering to the principles of ALARA. CT DOSE: 705.24 mGy.cm COMPARISON: September 22, 2019 FINDINGS: No acute intracranial hemorrhage, midline shift, intracranial mass, hydrocephalus, territorial ischem ia or abnormal extra-axial collection. Involutional changes with probable chronic microvascular ische romana disease. Chronic left cerebellar encephalomalacia. The calvarium is intact. The paranasal sinuses, mastoid air cells, and middle ear cavities are clear . IMPRESSION: No acute intracranial abnormality or calvarial fracture. ACT 112: Negative or not required by law. The above report was generated using voice recognition software. It may contain grammatical, syntax o r spelling errors. Electronically signed by: Fletcher Rae M.D. 04/27/2025 9:08 AM
[2025-04-27 09:25] LABS: Alanine Aminotransferase 21.0 U/L (7-52); Albumin Globulin Ratio 1.0 (0.9-2); Alkaline Phosphatase 111.0 U/L (34-104); Anion Gap 15.0 (3-11); Bilirubin,Total 2.3 mg/dl (0.2-1.0); Blood Urea Nitrogen 47.0 mg/dl (6-23); Calcium 9.5 mg/dl (8.6-10.3); Carbon Dioxide 32.0 mmol/L (21-32); Chloride 73.0 mmol/L (98-107); Creatinine Clr Calc Pharmacy 36.9 ml/min; Globulin 3.9 gm/dl (2.5-4.0); Glucose 123.0 mg/dl (70-99(Fasting)); Potassium 3.1 mmol/L (3.5-5.1); Sodium 120.0 mmol/L (136-145); Total Protein 7.8 gm/dl (6.0-8.3)
[2025-04-27 09:39] LABS: INR 1.8 (0.9-1.1); Prothrombin Time 18.5 Seconds (9.0-12.0)
--- NOTE | 2025-04-27 09:51 | XRay Report ---
XR hip KEEGAN 2v w pelvis CLINICAL HISTORY: fall COMPARISON STUDY: None FINDINGS: There is skin fold artifacts. There is mild degenerative change of the hips. No fracture or dislocation seen. IMPRESSION: No fracture seen. ACT 112: Negative or not required by law. Electronically signed by: Prince Atkins M.D. 04/27/2025 9:50 AM
--- NOTE | 2025-04-27 09:52 | XRay Report ---
XR chest 1V portable CLINICAL HISTORY: fall COMPARISON STUDY: 04/11/2025 FINDINGS: Stable cardiomegaly with pulmonary vascular congestion. Stable small bilateral pleural effu sions and associated lung base consolidation. No pneumothorax seen. No grossly displaced rib fracture seen. IMPRESSION: 1. CHF with pleural effusions. 2. No other acute findings seen. ACT 112: Negative or not required by law. Electronically signed by: Prince Atkins M.D. 04/27/2025 9:50 AM
[2025-04-27] MEDS: POTASSIUM CHLORIDE PWD 20 MEQ PACK PO STA (10:20)
[2025-04-27 11:36] LABS: Anion Gap 10.0 (3-11); Blood Urea Nitrogen 43.0 mg/dl (6-23); Calcium 9.2 mg/dl (8.6-10.3); Carbon Dioxide 32.0 mmol/L (21-32); Chloride 77.0 mmol/L (98-107); Creatinine Clr Calc Pharmacy 39.3 ml/min; Glucose 123.0 mg/dl (70-99(Fasting)); Potassium 3.0 mmol/L (3.5-5.1); Sodium 119.0 mmol/L (136-145)
[2025-04-27] MEDS ORDERED: STAT IV/IM STA (12:12)
[2025-04-27] MEDS: SODIUM CHLORIDE 3 % 100 ML IV ONE (13:07)
--- NOTE | 2025-04-27 13:35 | History & Physical Report ---
Date of Service April 27, 2025 Assessment & Plan (1) Hyponatremia: Plan 89 year old male who presents to the ER following a fall #Hyponatremia Unclear etiology at time of admission but likely contributing towards his generalized weakness Possible due to metolazone use although give he still appears hypervolemic this should be improving with diuresis Possible additional SIADH Na 119, serum osm measured 265, calculated 260, normal osmolar gap Urine osm 348, Na 17 TSH, cortisol levels Will repeat BMP following NSS 500ml given in the ER #Fall Secondary to longstanding balance issues, possibly acutely worse due to worsening hyponatremia No significant injuries from the fall, rafa on face and right elbow skin tear PT/OT #Chronic atrial fibrillation Continue warfarin, metoprolol succinate #Chronic congestive heart failure with preserved ejection fraction / severe pumonary hypertension Appears euvolemic following metolazone done at home Continue bumetanide and eplerenone VTE Prophylaxis - warfarin, INR near therapeutic levels Disposition - admit to med/tele Admission and Anticipated Discharge Date Admission Date: April 27, 2025 History of Present Illness Chief Complaint: Fall Primary Care Provider: Kellee Freeman MD Alex Boston is an 89 year old male who presents to the ER following a fall at home. He had a ground level fall while leaning down to adjust the thermostat and lost his balance. He has poor balance at baseline. Cut the right side of his face and elbow. No chest pain or shortness of breath prior to falling. He was g enerally weak and too weak to stand after EMS got him up from the fall therefore brought him to the ER. Currently on warfarin. General weakness has been getting worse the last few days. Not one sided. No facial droop or sensation change. He has chronic heart failure with severe pulmonary hypertension and takes bumetanide and eplerenone regularly. He takes metolazone as needed and due to worsening leg swelling and weight gain recently he took two doses over the last few days. Allergies Allergy/AdvReac Type Severity Reaction Status Date / Time suture glue Allergy Intermediate Rash Uncoded 04/27/25 09:53 Home Medications Medication Instructions Recorded Confirmed Type cholecalciferol (vitamin D3) 25 25 mcg PO DAILY 01/11/24 04/27/25 History mcg (1,000 unit) capsule metoprolol succinate 25 mg 25 mg PO QAM #90 tabs 12/27/24 04/27/25 Rx tablet,extended release 24 hr eplerenone 25 mg tablet (Inspra) 25 mg PO BID #180 tabs 02/07/25 04/27/25 Rx bumetanide 2 mg tablet 4 mg (2 x 2 mg) PO DAILY #60 tabs 04/02/25 04/27/25 Rx empagliflozin 10 mg tablet 10 mg PO DAILY #30 tabs 04/16/25 04/27/25 Rx (Jardiance) potassium chloride 20 mEq 20 meq PO DAILY #30 tabs 04/17/25 04/27/25 Rx tablet,extended release warfarin 5 mg tablet 5 mg PO QPM 04/17/25 04/27/25 History metolazone 5 mg tablet 5 mg PO [id number] PRN weight gain, 04/27/25 04/27/25 History edema, shortness of breath warfarin 5 mg tablet 2.5 mg PO [id number] 04/27/25 04/27/25 History Past Med/Surg History Problem List (Updated 04/27/25 @ 13:30 by Brendan Vasquez MD) Hyponatremia Acute on chronic diastolic CHF (congestive heart failure) (Acute) Wild-type transthyretin-related (ATTR) amyloidosis Skin tear of left forearm without complication (Acute) Lymphedema Traumatic wound (Acute) Hematoma of right lower leg (Acute) Pressure injury of coccygeal region, stage 1 (Acute) Hydropneumothorax LVH (left ventricular hypertrophy) Moderate to severe per cardio records; ECHO appearance consistent with infiltrative disease- currently undergoing amyloid work up Pleural effusion (Acute) Tricuspid regurgitation Pleural effusion on left (Acute) Incarcerated right inguinal hernia Foreskin swelling Lymphopenia Pleural effusion, right Anemia Chronic venous insufficiency of lower extremity (Chronic) Osteoarthritis of basilar joint of thumb Cervical radiculopathy (Chronic) Polyneuropathy (Chronic) Atrial fibrillation (Chronic) Hypertension (Chronic) Osteoarthritis (Chronic) Medical History Pneumothorax ex vacuo SIDNEY (acute kidney injury) Acute heart failure with preserved ejection fraction Acute exacerbation of CHF (congestive heart failure) SOB (shortness of breath) 10/30/24-11/02/24 [facility] ER/IP - as per patients patient has significantly improved with diuretic and patient hasn't complained of SOB or fluid retention. Pleural effusion Large bilateral pleural effusions L>R per 11/08/24 CXR (currently on diuretics); pulmonary symptoms resolved as of 11/23/24 HF Clinic note (HFpEF) heart failure with preserved ejection fraction Acute on chronic right sided CHF 10/30/24-11/02/24 (admitted to [facility]) IV lasix - at home d/c furosemide and started torsemide - as per patients weight has remained stable, denies dyspnea, and patient is "feeling much better" Gait disturbance Cane Osteoarthritis Severe tricuspid regurgitation Moderate to severe TR per 10/31/24 ECHO Polyneuropathy Hypertension Bilateral leg edema 10/30/24-11/02/24 [facility] ER/IP IV Lasix - d/c furosemide and started torsemide - as per patients weight has remained stable, denies dyspnea, able to ambulate with use of cane and patient is "feeling much better" Chronic venous insufficiency of lower extremity Per records Hearing loss Right Hearing Aid - stroke residual Atrial fibrillation [facility] Clinic - Warfarin Anemia Pulmonary hypertension Severe pulm HTN - PASP 65-70mmHg Asymmetrical left sensorineural hearing loss R/t stroke (2007) per patient/ Cerebrovascular accident, embolic (2007) Left Hearing Loss - no other residuals as per patients /patient 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 Basal cell carcinoma Actinic keratosis Chronic gastroesophageal reflux disease Controlled Surgical History H/O right inguinal hernia repair (12/05/24) PONV (postoperative nausea and vomiting) Hx of colonoscopy History of arthroscopy of left knee H/O basal cell carcinoma excision S/P thoracentesis (2021) H/O carpal tunnel repair Family History Other No family history of adverse response to anesthesia No family history of bleeding disorder Denies family history of Ovarian cancer Prostate cancer Myocardial infarction Breast cancer Colorectal cancer Social History Smoking Status: Never smoker Second Hand Exposure: No; Do You Dip or Chew Tobacco: No; Hx Alcohol Use: No Hx Substance Use: No Preferred Language: Slovak Communication Ability: Effective Visual Impairment: No Limitations Hearing Ability: Normal Inspector Screen Printing Required: No Beliefs That Will Affect Care: None marital status: Current Living Situation: Spouse Current Living Situation Comment: Condo current occupational status: retired Feels Safe at Home: Yes Safety Concerns: Feels Safe At This Time caffeine: Yes Dental Care, Regularly: Yes Seatbelt Use: always Sunscreen Use: Yes Assistive Devices: Walker Review of Systems Review of Systems: All systems reviewed & are unremarkable except as noted in HPI & below Physical Exam Constitutional: well developed; + not well nourished and no acute distress ENMT: Mouth: oral mucous membranes not dry Respiratory: normal respiratory effort, lungs clear to auscultation Auscultation: + crackles (bibasal); no wheezes Cardiovascular: Rate/Rhythm: regular rate and + irregularly irregular Heart Sounds: + murmur (LLSB) Extremities: normal capillary refill and + pedal edema (2+ bilateral equal); no calf tenderness Gastrointestinal (Abdomen): normal bowel sounds, soft, nontender, no hepatosplenomegaly Skin: no rashes, warm and dry Neurologic: moves all extremities and awake; not confused Psychiatric: A+Ox3, euthymic affect Results & Data Results & Data Vital Signs (Past 12 Hours) Vital Signs Temp Pulse Pulse Resp BP BP Pulse Ox 04/27/25 13:00 69 16 117/58 L 96 04/27/25 12:50 64 04/27/25 12:00 67 16 99 04/27/25 12:00 66 16 109/77 97 04/27/25 11:00 83 16 120/71 98 04/27/25 10:52 74 28 H 118/76 100 04/27/25 10:03 85 24 99 04/27/25 10:00 106/55 L 04/27/25 09:54 69 17 99 04/27/25 09:45 115/59 L 04/27/25 09:06 73 40 H 97 04/27/25 09:00 103/62 04/27/25 09:00 107 H 26 H 04/27/25 08:57 87 29 H 96 04/27/25 08:39 87 04/27/25 08:38 36.9 C 94 H 18 132/68 97 04/27/25 08:33 132/68 O2 Del Method 04/27/25 13:00 Room Air 04/27/25 12:50 04/27/25 12:00 Room Air 04/27/25 12:00 Room Air 04/27/25 11:00 Room Air 04/27/25 10:52 04/27/25 10:03 Room Air 04/27/25 10:00 04/27/25 09:54 Room Air 04/27/25 09:45 04/27/25 09:06 Room Air 04/27/25 09:00 04/27/25 09:00 04/27/25 08:57 Room Air 04/27/25 08:39 04/27/25 08:38 Room Air 04/27/25 08:33 Laboratory Results Abnormal lab results 04/27/25 04/27/25 04/27/25 Range/Units 08:42 10:57 11:32 WBC 4.73 L (4.8-10.8) K/ul RBC 4.53 L (4.70-6.10) M/uL Hct 38.8 L (42.0-52.0) % MCHC 36.6 H (32.0-36.0) g/dL MPV 8.9 L (9.4-12.4) fL Lymph # (Auto) 0.35 L (1.20-3.40) K/uL PT 18.5 H (9.0-12.0) Seconds INR 1.8 H (0.9-1.1) Sodium 120 L 119 L* (136-145) mmol/L Potassium 3.1 L 3.0 L (3.5-5.1) mmol/L Chloride 73 L 77 L (98-107) mmol/L Anion Gap 15 H (3-11) BUN 47 H 43 H (6-23) mg/dl BUN/Creatinine Ratio 37.0 H 36.1 H (10-20) Glucose 123 H 123 H (70-99(Fasting)) mg/dl Osmolality 265 L (280-300) mOsm/kg Total Bilirubin 2.3 H (0.2-1.0) mg/dl AST 43 H (13-39) U/L Alkaline Phosphatase 111 H (34-104) U/L B-Natriuretic Peptide 718 H (0-100) pg/ml Urine Osmolality 348 L (500-800) mOsm/kg Diagnostic Findings CT head/brain wo con CLINICAL HISTORY: 89 years-old Male with fall. Acute head trauma status post fall TECHNIQUE: Multiple axial CT images of the head were obtained without contrast. A dose lowering technique was utilized adhering to the principles of ALARA. CT DOSE: 705.24 mGy.cm COMPARISON: September 22, 2019 FINDINGS: No acute intracranial hemorrhage, midline shift, intracranial mass, hydrocephalus, territorial ischemia or abnormal extra-axial collection. Invo lutional changes with probable chronic microvascular ischemic disease. Chronic left cerebellar encephalomalacia. The calvarium is intact. The paranasal sinuses, mastoid air cells, and middle ear cavities are clear. IMPRESSION: No acute intracranial abnormality or calvarial fracture. XR chest 1V portable CLINICAL HISTORY: fall COMPARISON STUDY: 04/11/2025 FINDINGS: Stable cardiomegaly with pulmonary vascular congestion. Stable small bilateral pleural effusions and associated lung base consolidation. No pneumothorax seen. No grossly displaced rib fracture seen. IMPRESSION: 1. CHF with pleural effusions. 2. No other acute findings seen. XR hip KEEGAN 2v w pelvis CLINICAL HISTORY: fall COMPARISON STUDY: None FINDINGS: There is skin fold artifacts. There is mild degenerative change of the hips. No fracture or dislocation seen. IMPRESSION: No fracture seen. Medications Administered ER Medications Given: Normal saline 500ml bolus Potassium chloride 40 meq PO ECG Rate (beats per minute): 61 Rhythm: atrial fibrillation Findings: no acute ischemic change Comparison ECG Date: from (April 09, 2025) Change: no significant change Code Status & VTE Plan Code Status DNR/DNI VTE Prophylaxis Plan VTE Prophylaxis will be ordered: Yes PG Care Time/CCT Total # of Minutes Spent Total Time Spent with Patient: Total time spent is greater than 50% in coordination of care (as documented) at patient's floor/unit and/or counseling patient: Coding Level of Care Code 01890 INT INP/OBS CARE 3/75MIN Diagnoses Hyponatremia E87.1
[2025-04-27] MEDS: POTASSIUM CHLORIDE CRTAB 20 MEQ TABCR PO STA (14:23)
[2025-04-27 14:25] LABS: Thyroid Stimulating Hormone 4.5 uIu/ml (0.300-4.500)
[2025-04-27 17:38] LABS: Anion Gap 9.0 (3-11); Blood Urea Nitrogen 40.0 mg/dl (6-23); Calcium 9.1 mg/dl (8.6-10.3); Carbon Dioxide 35.0 mmol/L (21-32); Chloride 78.0 mmol/L (98-107); Creatinine Clr Calc Pharmacy 44.2 ml/min; Glucose 118.0 mg/dl (70-99(Fasting)); Potassium 3.1 mmol/L (3.5-5.1); Sodium 122.0 mmol/L (136-145)
[2025-04-27] MEDS: WARFARIN SOD 2.5 MG TAB PO SCH (17:42)
--- NOTE | 2025-04-27 17:45 | Electrocardiogram Report ---
Test Reason : Blood Pressure : */* mmHG Vent. Rate : 61 BPM Atrial Rate : * BPM P-R Int : * ms QRS Dur : 102 ms QT Int : 430 ms P-R-T Axes : * -46 86 degrees QTcB Int : 432 ms Atrial fibrillation Left axis deviation Low voltage QRS Cannot rule out Anteroseptal infarct (cited on or before 30-Oct-2024) Abnormal ECG When compared with ECG of 09-Apr-2025 12:32, No significant change was found Confirmed by Yung Ferraro ([id number]) on 04/27/2025 5:45:15 PM Referred By: REFERRED SELF Confirmed By: Yung Ferraro
[2025-04-27] MEDS: EPLERENONE 25 MG PO SCH (21:16)
[2025-04-28 07:47] LABS: Alanine Aminotransferase 20.0 U/L (7-52); Albumin Globulin Ratio 0.9 (0.9-2); Alkaline Phosphatase 99.0 U/L (34-104); Anion Gap 8.0 (3-11); Bilirubin,Total 2.7 mg/dl (0.2-1.0); Blood Urea Nitrogen 35.0 mg/dl (6-23); Calcium 9.2 mg/dl (8.6-10.3); Carbon Dioxide 36.0 mmol/L (21-32); Chloride 81.0 mmol/L (98-107); Creatinine Clr Calc Pharmacy 43.4 ml/min; Globulin 3.7 gm/dl (2.5-4.0); Glucose 88.0 mg/dl (70-99(Fasting)); Potassium 3.2 mmol/L (3.5-5.1); Sodium 125.0 mmol/L (136-145); Total Protein 7.1 gm/dl (6.0-8.3)
[2025-04-28 07:54] LABS: INR 1.8 (0.9-1.1); Prothrombin Time 18.5 Seconds (9.0-12.0)
[2025-04-28] MEDS ORDERED: EPLERENONE 25 MG PO SCH (09:00)
[2025-04-28] MEDS: POTASSIUM CHLORIDE CRTAB 20 MEQ TABCR PO SCH (09:04)
[2025-04-28] MEDS: METOPROLOL SUCC 25MG EXT REL TAB PO SCH (09:05)
[2025-04-28] MEDS: BUMETANIDE 1 MG TAB PO SCH (09:05)
[2025-04-28] MEDS: POTASSIUM CHLORIDE CRTAB 20 MEQ TABCR PO STA (09:52)
[2025-04-28] MEDS: POLYETHYLENE (MIRALAX) 17 GM PACK PO SCH (13:46)
[2025-04-28] MEDS: POTASSIUM CHLORIDE CRTAB 20 MEQ TABCR PO ONE (16:13)
--- NOTE | 2025-04-28 17:39 | Hospitalist Progress Note ---
Date of Service April 28, 2025 Assessment & Plan (1) Hyponatremia: Plan 89 year old male who presents to the ER following a fall after trying to change the thermostat #Hyponatremia / hypokalemia Unclear etiology at time of admission but likely contributing towards his generalized weakness Possible due to metolazone use although give he still appears hypervolemic this should be improving with diuresis Possible additional SIADH Na 119, serum osm measured 265, calculated 260, normal osmolar gap Urine osm 348, Na 17 -> mixed renal/extrarenal picture - ?post metolazone use TSH 4.5, cortisol 18.37 (normal) Sodium rising at adequate rate following hypertonic saline given yesterday, not clear he needs additional doses as long as repeated metolazone dose not needed Continue to replace potassium as needed for hypokalemia (additional 80 meq KCl today) #Fall Secondary to longstanding balance issues, possibly acutely worse due to worsening hyponatremia No fractures from the fall, rafa on face and right elbow skin tear PT/OT #Chronic atrial fibrillation Continue warfarin, metoprolol succinate #Chronic congestive heart failure with preserved ejection fraction / severe pumonary hypertension Appears euvolemic following metolazone done at home Continue bumetanide and eplerenone VTE Prophylaxis - warfarin, INR near therapeutic levels Disposition - admit to med/tele Admission and Anticipated Discharge Date Admission Date: April 27, 2025 Subjective Feeling improved, less fatigued. Sodium improving. No worsening shortness of breath or leg edema. Physical Exam Constitutional: well developed; + not well nourished and no acute distress ENMT: Mouth: oral mucous membranes not dry Respiratory: normal respiratory effort, lungs clear to auscultation Auscultation: + crackles (bibasal); no wheezes Cardiovascular: Rate/Rhythm: regular rate and + irregularly irregular Heart Sounds: + murmur (LLSB) Extremities: normal capillary refill and + pedal edema (2+ bilateral equal); no calf tenderness Results & Data Results & Data Vital Signs (Past 12 Hours) Vital Signs Temp Pulse Pulse Resp BP Pulse Ox O2 Del Method 04/28/25 16:12 04/28/25 15:20 36.4 C L 82 18 102/66 93 Room Air 04/28/25 14:11 Room Air 04/28/25 13:02 88 04/28/25 11:30 36.3 C L 63 18 102/64 95 Room Air 04/28/25 07:48 36.3 C L 88 18 121/71 96 Room Air O2 Del Method 04/28/25 16:12 Room Air 04/28/25 15:20 04/28/25 14:11 04/28/25 13:02 04/28/25 11:30 04/28/25 07:48 PG Care Time/CCT Total # of Minutes Spent Total Time Spent with Patient: Total time spent is greater than 50% in coordination of care (as documented) at patient's floor/unit and/or counseling patient: Coding Level of Care Code 44713 SUB INP/OBS CARE 2/35MIN Diagnoses Hyponatremia E87.1
[2025-04-29 07:35] LABS: Anion Gap 7.0 (3-11); Blood Urea Nitrogen 34.0 mg/dl (6-23); Calcium 9.3 mg/dl (8.6-10.3); Carbon Dioxide 37.0 mmol/L (21-32); Chloride 81.0 mmol/L (98-107); Creatinine Clr Calc Pharmacy 44.3 ml/min; Glucose 95.0 mg/dl (70-99(Fasting)); Potassium 3.4 mmol/L (3.5-5.1); Sodium 125.0 mmol/L (136-145)
[2025-04-29 07:49] LABS: INR 1.8 (0.9-1.1); Prothrombin Time 18.6 Seconds (9.0-12.0)
[2025-04-29] MEDS ORDERED: STAT IV/IM STA ×2 (09:25→18:45)
[2025-04-29] MEDS: SODIUM CHLORIDE 3 % 100 ML IV ONE ×2 (10:03→19:00)
[2025-04-29] MEDS: POTASSIUM CHLORIDE CRTAB 20 MEQ TABCR PO STA (10:06)
[2025-04-29 16:58] VITALS: RESP 16
--- NOTE | 2025-04-29 18:50 | Hospitalist Progress Note ---
Date of Service April 29, 2025 Assessment & Plan (1) Hyponatremia: (2) Fall: (3) Laceration of skin of face: Plan 89 year old male who presents to the ER following a fall after trying to change the thermostat #Hyponatremia / hypokalemia Unclear etiology at time of admission but likely contributing towards his generalized weakness Possible due to metolazone use although give he still appeared hypervolemic on admission which seems to be improving with bumex alone ?due to reduced salt diet in hospital Possible additional SIADH Na 119, serum osm measured 265, calculated 260, normal osmolar gap Urine osm 348, Na 17 -> mixed renal/extrarenal picture - ?post metolazone use TSH 4.5, cortisol 18.37 (normal) Additional hypertonic saline 100ml today as sodium appears stagnant Continue to replace potassium as needed for hypokalemia (additional 20+40 meq VIDAL l today) #Fall Secondary to longstanding balance issues, possibly acutely worse due to worsening hyponatremia No fractures from the fall, rafa on face and right elbow skin tear PT/OT #Chronic atrial fibrillation Continue warfarin, metoprolol succinate #Chronic congestive heart failure with preserved ejection fraction / severe pumonary hypertension Appears euvolemic following metolazone done at home Continue bumetanide and eplerenone VTE Prophylaxis - warfarin, INR near therapeutic levels Disposition - stable for downgrade to med/surg Admission and Anticipated Discharge Date Admission Date: April 27, 2025 Subjective Large bowel movement today and incontinent in bed after receving MiraLAX yesterday and this morning. Otherwise feeling well. reports his memory and confusion is fluctuating. Review of Systems Review of Systems: All systems reviewed & are unremarkable except as noted in HPI & below Physical Exam Constitutional: well developed; + not well nourished and no acute distress ENMT: Mouth: oral mucous membranes not dry Respiratory: normal respiratory effort, lungs clear to auscultation Auscultation: + crackles (bibasal); no wheezes Cardiovascular: Rate/Rhythm: regular rate and + irregularly irregular Heart Sounds: + murmur (LLSB) Extremities: normal capillary refill and + pedal edema (1+ bilateral equal, increased wrinkles); no calf tenderness Results & Data Results & Data Vital Signs (Past 12 Hours) Vital Signs Temp Pulse Resp BP BP Pulse Ox O2 Del Method 04/29/25 16:57 35.6 C L 109 H 16 112/77 94 Room Air 04/29/25 15:30 36.3 C L 74 18 100/60 94 Room Air 04/29/25 15:09 04/29/25 11:29 36.5 C 82 18 105/70 99 Room Air 04/29/25 07:34 36.3 C L 74 18 103/68 98 Room Air O2 Del Method 04/29/25 16:57 04/29/25 15:30 04/29/25 15:09 Room Air 04/29/25 11:29 04/29/25 07:34 PG Care Time/CCT Total # of Minutes Spent Total Time Spent with Patient: Total time spent is greater than 50% in coordination of care (as documented) at patient's floor/unit and/or counseling patient: Coding Level of Care Code 26702 SUB INP/OBS CARE 2/35MIN Diagnoses Hyponatremia E87.1 Fall W19.XXXA Laceration of skin of face S01.81XA
[2025-04-30 07:13] LABS: Anion Gap 10.0 (3-11); Blood Urea Nitrogen 36.0 mg/dl (6-23); Calcium 9.3 mg/dl (8.6-10.3); Carbon Dioxide 34.0 mmol/L (21-32); Chloride 85.0 mmol/L (98-107); Creatinine Clr Calc Pharmacy 37.4 ml/min; Glucose 88.0 mg/dl (70-99(Fasting)); Potassium 3.7 mmol/L (3.5-5.1); Sodium 129.0 mmol/L (136-145)
[2025-04-30 07:19] LABS: INR 1.8 (0.9-1.1); Prothrombin Time 18.7 Seconds (9.0-12.0)
[2025-04-30 11:35] VITALS: TEMP 97.7; O2SAT 98
[2025-04-30] MEDS ORDERED: STAT IV/IM STA (12:32)
[2025-04-30] MEDS: SODIUM CHLORIDE 3 % 150 ML IV ONE (13:07)
--- NOTE | 2025-04-30 14:38 | Discharge Summary ---
Discharge Summary Date of Service April 30, 2025 Principal Dx & Hospital Course #1 = Principal Diagnosis (1) Hyponatremia: (2) Fall: (3) Laceration of skin of face: Plan 89 year old male who presents to the ER following a fall after trying to change the thermostat #Hyponatremia / hypokalemia Unclear etiology at time of admission but likely contributing towards his generalized weakness Possible due to metolazone use although give he still appeared hypervolemic on admission which seems to be improving with bumex alone ?due to reduced salt diet in hospital Possible additional SIADH Na 119, serum osm measured 265, calculated 260, normal osmolar gap Urine osm 348, Na 17 -> mixed renal/extrarenal picture - ?post metolazone use TSH 4.5, cortisol 18.37 (normal) Additional hypertonic saline 100ml today as sodium appears stagnant Continue to replace potassium as needed for hypokalemia (additional 20+40 meq KCl today) #Fall Secondary to longstanding balance issues, possibly acutely worse due to worsening hyponatremia No fractures from the fall, rafa on face and right elbow skin tear PT/OT #Chronic atrial fibrillation Continue warfarin, metoprolol succinate #Chronic congestive heart failure with preserved ejection fraction / severe pumonary hypertension Appears euvolemic following metolazone done at home Continue bumetanide and eplerenone VTE Prophylaxis - warfarin, INR near therapeutic levels Disposition - stable for downgrade to med/surg Admission HPI Per Admitting Provider Alex Boston is an 89 year old male who presents to the ER following a fall at home. He had a ground level fall while leaning down to adjust the thermostat and lost his balance. He has poor balance at baseline. Cut the right side of his face and elbow. No chest pain or shortness of breath prior to falling. He was generally weak and too weak to stand after EMS got him up from the fall therefore brought him to the ER. Currently on warfarin. General weakness has been getting worse the last few days. Not one sided. No facial droop or sensation change. He has chronic heart failure with severe pulmonary hypertension and takes bumetanide and eplerenone regularly. He takes metolazone as needed and due to worsening leg swelling and weight gain recently he took two doses over the last few days. Discharge Plan Discharge Items Patient Disposition: Transfer Inpatient Rehab Fac Reason For Visit: HYPONATREMIA, FALL Discharge Diagnosis: Hyponatremia, Fall Condition on Discharge: Fair Activity: Per Instructions section Non-emergency contact: Primary Care Provider Call non-emergency contact if: you have any medication questions and your symptoms worsen Follow-up/Referrals: Kellee Freeman MD [Primary Care Provider] - Addtl Attending Provider Instructions: You were admitted to [facility] from April 27 - 2024 following a fall with generalized weakness and low sodium levels noted on labs in the ER. Suspect low sodium level was due to metolazone taken in the days prior to this leading up to admission. You were continued on Bumex 4mg PO daily but metolazone was discontinued and hyponatremia treated with hypertonic saline boluses. Sodium is now back to 129. Despite increasing BNP your leg edema has continued to improve with his usual Bumex and eplerenone therefore these diuretics may need to be decreased if your renal function gets worse at [facility]. You are now medically stable for discharge to [facility] for ongoing rehabilitation and close monitoring of your fluid status, sodium and potassium levels. Jardiance was discontinued as you reported not taking this due to cost. Pending Studies at Discharge: No Stand-Alone Forms: My [facility] Skilled Items Patient informed of condition?: Yes DNR: Yes Discharge Level of Care: Acute rehab Communicable Disease: No Discharge Prognosis: Improving Lines: None Urinary Catheter: No Medications and DC Order Prescriptions: Continued metoprolol succinate 25 mg tablet extended release 24 hr 25 mg PO QAM Qty: 90 1RF eplerenone [Inspra] 25 mg tablet 25 mg PO BID Qty: 180 3RF cholecalciferol (vitamin D3) 25 mcg (1,000 unit) capsule 25 mcg PO DAILY bumetanide 2 mg tablet 4 mg PO DAILY Qty: 60 3RF potassium chloride 20 mEq tablet extended release 20 meq PO DAILY Qty: 30 2RF warfarin 5 mg tablet 5 mg PO QPM Rx Instructions: 5mg q Wednesday, 2.5mg x 6 days per [facility] orally use as directed warfarin 5 mg tablet 2.5 mg PO [id number] Rx Instructions: 5mg q Wednesday, 2.5mg x 6 days per [facility] orally use as directed Discontinued Jardiance 10 mg tablet 10 mg PO DAILY Qty: 30 2RF Patient Comments: "Has not started - >$500" as per patients metolazone 5 mg tablet 5 mg PO 3XWK PRN (Reason: weight gain, edema, shortness of breath) Rx Instructions: Mon/Wed/Fri Discharge Orders: Discharge Order (Routine); Ordered 04/30/25 Ordered By: Brendan Vasquez Admission Data Admit Date/Time: 04/27/25 11:08 Attending Provider: Brendan Vasquez Admit Provider: Brendan Vasquez Primary Care Provider: Kellee Freeman Other Providers: [facility] Fax; Neto Handy Hospital Stay Data Consultations 04/27/25 09:47 ED Decision to Admit Stat Diagnostic Imagining Performed 04/27/25 08:39 CT head/brain wo con Stat Pending Results Patient Have Any Pending Studies at Discharge: No Discharge Instructions Given to Patient (Per Discharging Provider) You were admitted to [facility] from April 27 - 2024 following a fall with generalized weakness and low sodium levels noted on labs in the ER. Suspect low sodium level was due to metolazone taken in the days prior to this leading up to admission. You were continued on Bumex 4mg PO daily but metolazone was discontinued and hyponatremia treated with hypertonic saline boluses. Sodium is now back to 129. Despite increasing BNP your leg edema has continued to improve with his usual Bumex and eplerenone therefore these diuretics may need to be decreased if your renal function gets worse at [facility]. You are now medically stable for discharge to [facility] for ongoing rehabilitation and close monitoring of your fluid status, sodium and potassium levels. Jardiance was discontinued as you reported not taking this due to cost. Coding Diagnoses Hyponatremia E87.1 Fall W19.XXXA Laceration of skin of face S01.81XA
[2025-04-30 15:12] VITALS: BP 100/60; PULSE 80
[2025-04-30] MEDS ORDERED: WARFARIN SOD 5 MG TAB PO SCH (16:00)
== END 2025-04-30 15:55 | disposition home health service (06) | DRG 644 ==
LOC: SUATTDRO → ED 08:29 → EDINP 11:08 → 2N 16:44 → 3E 04-29 16:53